=== PATIENT | female | born 1980 | race Caucasian/White ===

== ENCOUNTER → 2020-03-09 11:01 | Outpatient (CLI) | payer BC, SELFPAY ==
--- NOTE | ~2020-03-09 | XR_ITS ---
EXAMINATION: XR lumbar spine 2-3V, XR sacrum coccyx min 2V DATE: 03/09/2020 11:39 INDICATION: Fall onto lower back and posterior pelvis descending with posterior pelvic pain, left leg radiculopathy, loss of sensation in the perineum and difficulty using the bathroom. TECHNIQUE: 1. Anteroposterior and lateral views of the lumbar spine, and cone-down lateral view of the lumbosacr al junction were obtained. 2. 3 views of the sacrum were obtained including AP, angled AP and lateral projections. COMPARISON: None. FINDINGS: Lumbar spine: Alignment is normal. Vertebral body and disc heights are normal. No significant facet osteoarthritis. Visualized lung bases are clear. Heart size is normal. Sacrum: Sacral arches appear intact. No fracture. Bilateral sacroiliac joint spaces are normal. Is also jacquie l alignment and joint space at the bilateral hips. Suture line in the left hemipelvis. IMPRESSION: 1. Negative lumbar spine and sacral radiographs with no osseous abnormality. Reviewed, dictated and finalized at location A. IMPRESSION: 1. Negative lumbar spine and sacral radiographs with no osseous abnormality.
== END ==
PROVIDERS: PCP Physician Assistant; Visit Provider Physician Assistant
DX: M54.5 Low back pain (principal)
CPT/HCPCS: 72100; 72220

== ENCOUNTER 2021-06-07 15:07 | Outpatient (CLI) | payer BC, SELFPAY ==
--- NOTE | ~2021-06-07 | XR_ITS ---
XR chest 2V DATE: 06/07/2021 15:27 INDICATION: Tuberculosis screening TECHNIQUE: PA and lateral views COMPARISON: 10/09/2017 two-view chest FINDINGS: Bilateral hyperinflation. No pulmonary infiltrate or consolidation, pleural effusion or pul monary vascular congestion or pneumothorax is detected. Normal heart size. No hilar or mediastinal enlargement. IMPRESSION: Bilateral hyperinflation; no active cardiopulmonary disease Reviewed, dictated and finalized at location B.
== END 2021-06-07 15:08 | disposition home or self-care (01) ==
LOC: ANHIMG 15:09
PROVIDERS: PCP Physician Assistant; Visit Provider Physician Assistant
DX: Z11.1 Encounter for screening for respiratory tuberculosis (principal); R91.8 Other nonspecific abnormal finding of lung field
CPT/HCPCS: 71046

== ENCOUNTER → 2022-02-17 08:50 | Outpatient (CLI) | payer BC, SELFPAY ==
--- NOTE | ~2022-02-17 | MR_ITS ---
EXAMINATION: MR lumbar spine wo con DATE: 02/17/2022 09:20 INDICATION: Lumbar radiculopathy TECHNIQUE: Magnetic resonance imaging (MRI) of the lumbar spine was performed without intravenous con trast. Sequences included sagittal T2-weighted FSE, sagittal T2-weighted FS FSE, sagittal T1-weighted FSE, and axial T2-weighted FSE. COMPARISON: MR spine radiographs dated 03/09/2020 FINDINGS: Alignment is normal. Vertebral body heights are normal. Normal bone marrow signal throughout. Normal disc height and signal. Annular fissures at at L4-L5 and L5-S1. The conus medullaris terminates at L1 -L2. There is normal signal in the caudal spinal cord. Paravertebral soft tissues are unremarkable. T he following disc levels are specifically discussed: T12-L1: The disc does not extend beyond the endplate margin. There is no facet joint osteoarthritis. There is no neural foraminal stenosis. There is no central canal stenosis. L1-L2: Disc is minimally bulging. There is no facet joint osteoarthritis. There is no neural foramina l stenosis. There is no central canal stenosis. L2-L3: Disc is minimally bulging. There is no facet joint osteoarthritis. There is no neural foramina l stenosis. There is no central canal stenosis. L3-L4: Disc is minimally bulging. There is mild bilateral facet joint osteoarthritis. There is no shirley ral foraminal stenosis. There is no central canal stenosis. L4-L5: Disc is minimally bulging with annular fissure. There is mild bilateral facet joint osteoarthr itis. There is no neural foraminal stenosis. There is no central canal stenosis. L5-S1: Disc is minimally bulging with annular fissure. There is mild to moderate right and mild left facet joint osteoarthritis. There is no neural foraminal stenosis. There is no central canal stenosis . IMPRESSION: 1. Minimal lumbar spondylosis with no central canal or neural foraminal stenosis.. Reviewed, dictated and finalized at location A. IMPRESSION: 1. Minimal lumbar spondylosis with no central canal or neural foraminal stenosi s..
== END ==
PROVIDERS: PCP Physician Assistant; Visit Provider Physician Assistant
DX: M54.16 Radiculopathy, lumbar region (principal); M47.816 Spondylosis without myelopathy or radiculopathy, lumbar region
CPT/HCPCS: 72148

== ENCOUNTER → 2022-09-07 14:33 | Outpatient (CLI) | payer BC, SELFPAY ==
--- NOTE | ~2022-09-07 | XR_ITS ---
EXAMINATION: XR hip LT 2V w AP pelvis INDICATION: Left hip pain TECHNIQUE: AP view the pelvis and two views of the left hip are obtained. COMPARISON: None available FINDINGS: Bone alignment is normal. There is no fracture. The joint spaces are unremarkable. A surgic al anastomosis is noted in the left pelvis. IMPRESSION: 1. No acute osseous abnormality. Reviewed, dictated and finalized at location F.
== END ==
PROVIDERS: PCP Physician Assistant; Visit Provider Physician Assistant
DX: M25.552 Pain in left hip (principal)
CPT/HCPCS: 73502

== ENCOUNTER 2023-01-12 08:56 | Outpatient (CLI) | payer BC, SELFPAY ==
--- NOTE | ~2023-01-12 | US_ITS ---
EXAMINATION: US abdomen complete DATE: 01/12/2023 10:29 INDICATION: Epigastric pain TECHNIQUE: Multiple grayscale and Doppler ultrasound images of the abdomen were obtained. COMPARISON: None available FINDINGS: The head and body of the pancreas are normal. The pancreatic tail is obscured by bowel gas. The liver is normal with normal echogenicity and echotexture. No surface nodularity. Normal hepatope melly flow in the main portal vein. The gallbladder is normal with no abnormal wall thickening, pericho lecystic fluid or stones. The normal common bile duct measures 4 mm. There was no sonographic Patel sign. The visualized portions of the aorta and inferior vena cava are normal. The spleen is normal in appearance and measures 9.3 cm. The right kidney measures 9.9 x 3.5 x 4.1 cm. The left kidney measures 9.7 x 4.6 x 4.1 cm. The kidneys demonstrate normal parenchymal echogenicity . There is no hydronephrosis. IMPRESSION: 1. No sonographic correlate for the patient's symptoms. Reviewed, dictated and finalized at location B. WARE INSTALLATION COORDINATOR
--- NOTE | ~2023-01-12 | XR_ITS ---
EXAMINATION: XR UGIAC wo kub DATE: 01/12/2023 10:44 INDICATION: Epigastric abdominal pain TECHNIQUE: The patient drank thick barium, gas-producing crystals, and thin barium. A total of fluoro scopic images of the esophagus, stomach, and proximal small bowel were obtained. Fluoroscopy exposure time was minutes. COMPARISON: None. FINDINGS: The esophagus is normal without mass or stricture. Esophageal motility is normal. There is no hiatal hernia. There was no gastroesophageal reflux with provocative maneuvers. The stomach and pr oximal small bowel are normal. IMPRESSION: 1. Normal upper GI study. Reviewed, dictated and finalized at location A. A HAND IMPRESSION: 1. Normal upper GI study.
== END 2023-01-12 08:57 | disposition home or self-care (01) ==
PROVIDERS: PCP Physician Assistant; Visit Provider Physician Assistant
DX: R11.0 Nausea (principal); R10.10 Upper abdominal pain, unspecified
CPT/HCPCS: 74246; 76700

== ENCOUNTER → 2023-07-24 16:09 | Outpatient (CLI) | payer BC, SELFPAY ==
--- NOTE | ~2023-07-24 | US_ITS ---
EXAMINATION: US soft tissue buttock LT DATE: 07/24/2023 16:21 INDICATION: Palpable area at the left buttock post fall 3 years prior TECHNIQUE: Multiple grayscale and Doppler ultrasound images of the region of concern at the left butt ock were obtained. COMPARISON: None FINDINGS: Normal appearance to the subcutaneous fat and underlying musculature at the region of concern at the left buttock. No abnormal masses or fluid collections identified. IMPRESSION: 1. Normal study. No abnormal masses, fluid collections or other correlate for reported palpable abnor mality at the left buttock. Reviewed, dictated and finalized at location A. IMPRESSION: 1. Normal study. No abnormal masses, fluid collections or other correlate for r eported palpable abnormality at the left buttock.
== END ==
PROVIDERS: PCP Physician Assistant; Visit Provider Physician Assistant
DX: R22.2 Localized swelling, mass and lump, trunk (principal)
CPT/HCPCS: 76705

== ENCOUNTER → 2023-08-24 07:00 | Outpatient (CLI) | payer BC, SELFPAY ==
--- NOTE | ~2023-08-24 | MR_ITS ---
EXAMINATION: MR cervical spine wo con DATE: 08/24/2023 07:37 INDICATION: Spondylosis without myelopathy or radiculopathy. Neck pain. Left arm pain. TECHNIQUE: Magnetic resonance imaging (MRI) of the cervical spine was performed without intravenous c ontrast. COMPARISON: Cervical spine MRI 08/21/17 FINDINGS: There is 7 degrees levocurvature of cervicothoracic spine. Vertebral body heights and inter vertebral disc heights are normal. The spinal cord signal intensity is normal. The following disc lev els are specifically discussed: C2-C3: The disc does not extend beyond the endplate margin. There is no uncovertebral joint osteoarth ritis. There is mild right and moderate left facet joint osteoarthritis. There is no neural foraminal stenosis. There is no central canal stenosis. C3-C4: The disc does not extend beyond the endplate margin. There is no uncovertebral joint osteoarth ritis. There is severe left facet joint osteoarthritis. There is mild left neural foraminal stenosis. There is no central canal stenosis. C4-C5: The disc does not extend beyond the endplate margin. There is moderate left uncovertebral join t osteoarthritis. There is severe left facet joint osteoarthritis. There is mild left neural foramina l stenosis. There is no central canal stenosis. C5-C6: The disc does not extend beyond the endplate margin. There is no uncovertebral joint osteoarth ritis. There is mild bilateral facet joint osteoarthritis. There is no neural foraminal stenosis. The re is no central canal stenosis. C6-C7: There is a central protrusion. There is no uncovertebral joint osteoarthritis. There is mild b ilateral facet joint osteoarthritis. There is no neural foraminal stenosis. There is no central canal stenosis. C7-T1: The disc does not extend beyond the endplate margin. There is no uncovertebral joint osteoarth ritis. There is mild bilateral facet joint osteoarthritis. There is no neural foraminal stenosis. The re is no central canal stenosis. IMPRESSION: 1. Mild cervical spondylosis, stable from 08/21/2017. Reviewed, dictated and finalized at location E.
== END ==
PROVIDERS: Visit Provider Physician Assistant
DX: M47.812 Spondylosis without myelopathy or radiculopathy, cervical region (principal); M43.02 Spondylolysis, cervical region
CPT/HCPCS: 72141

== ENCOUNTER 2024-06-26 10:28 | Outpatient (CLI) | payer OTHER, SELFPAY ==
--- NOTE | ~2024-06-26 | MR_ITS ---
MRI of the left knee Clinical history: Pain Technique: Coronal proton density and proton density-weighted images, sagittal proton-density and T2 fat-sat images, and axial proton-density fat-saturated images were acquired. Findings: Anterior and posterior cruciate ligaments are intact. Medial collateral ligament and the la teral collateral ligament, as are intact. Popliteus tendon is intact. Medial and lateral menisci are intact, without evidence of tear. Articular cartilage is well preserved throughout the knee. Bone marrow signals are unremarkable. Extensor mechanism is intact. No significant joint effusion. Minimal Davalos's cyst present. Impression: Minimal Davalos's cyst, otherwise unremarkable exam. Reviewed, dictated and finalized at location . Impression: Minimal Davalos's cyst, otherwise unremarkable exam.
== END 2024-06-26 10:29 ==
LOC: MICIMG 10:29
PROVIDERS: PCP Nurse Practitioner Family; Visit Provider Nurse Practitioner Family
DX: M25.562 Pain in left knee (principal)
CPT/HCPCS: 73721

== ENCOUNTER 2024-09-29 15:55 | Outpatient (CLI) | payer OTHER, SELFPAY ==
--- NOTE | ~2024-09-29 | CT_ITS ---
EXAMINATION: CT brain wo con DATE: 09/29/2024 16:08 INDICATION: Head injury. TECHNIQUE: Computed tomography (CT) of the head was performed without intravenous contrast. The mA wa s adjusted according to patient size. Iterative reconstruction technique was employed. The dose-lengt h product was 645.69 mGy-cm. COMPARISON: None FINDINGS: There is no intracranial hemorrhage, acute infarction, or abnormal intracranial mass lesion . The ventricles are normal in size. The orbits are normal. There is complete opacification of left m axillary sinus. The mastoid air cells are normal. IMPRESSION: 1. Normal brain. Reviewed, dictated and finalized at location A. OGRAPHIC DESIGNER IMPRESSION: 1. Normal brain.
== END 2024-09-29 15:56 | disposition home or self-care (01) ==
LOC: GOSHIMG 15:56
PROVIDERS: PCP Physician Assistant; Visit Provider Physician Assistant
DX: S00.93XA Contusion of unspecified part of head, initial encounter (principal); W19.XXXA Unspecified fall, initial encounter
CPT/HCPCS: 70450

== ENCOUNTER 2025-01-13 07:21 | Outpatient (CLI) | payer OTHER, SELFPAY ==
--- NOTE | ~2025-01-13 | MM_ITS ---
EXAMINATION: MM screening ed BI w jeffrey HISTORY: Screening TECHNIQUE: Craniocaudal and mediolateral oblique 3-D tomosynthesis images were obtained and synthetic 2-D images were generated. CAD analysis was submitted and interpreted. COMPARISON: No prior mammogram is available for comparison at this institution. BREAST PARENCHYMAL COMPOSITION: Dense: The breasts are heterogeneously dense, which may obscure small masses FINDINGS: There are asymmetries in the upper outer quadrant of the right breast, middle third and the central aspect of the left breast. There are no suspicious calcifications. IMPRESSION: 1. Bilateral breast asymmetries. 2. Additional mammographic views and possible breast ultrasound are recommended. BI-RADS Category 0: Incomplete: Needs additional imaging evaluation. Reviewed, dictated and finalized at location B. HOLIC COUNSELOR IMPRESSION: 1. Bilateral breast asymmetries. 2. Additional mammographic views and possible breast ultrasound are recommended . BI-RADS Category 0: Incomplete: Needs additional imaging evaluation.
--- OUTSIDE RECORDS SUMMARY | 2025-01-13 07:26 | XMS_ITS | Continuity of Care Document ---
Author Organization [facility] Address [address] [facility] [address] [place] [address] Phone Care Team Providers Care Auto Bench Mechanic Name Role Phone MarilusaemerRajaniMalachi Unavailable Unavailable Procedures Procedure Date Eye Exam, New Patient Advance Directives Directive Yes / No Effective Date File Name No Information Encounters Encounter Description Practice Location Reason(s) For Visit Diagnoses Date Provider Providers Copied on Encounter [facility], [address], [place], [place], [id number], [place] tel:[phone] [facility] No Information [address]. [address] [facility] [address], [place], [address], [place]. tel:[phone] Family History Family Member Type Diagnosis Age At Onset No Information Payers Payer name Insurance type Covered constitution party ID Authoriza tiamber(s) BCBS [place] Out Of [place] [id number] Social History Type Description Quantity Date Captured [...]
--- OUTSIDE RECORDS SUMMARY | 2025-01-13 07:27 | XMS_ITS | Referral Summary ---
Author Organization [facility] [address] [facility] [facility] [address] Address [address] [place] [address] Care Team Providers Care Control Cabinet Assembler Name Role Phone Samanta Alvarenga Primary Care Pr ovider Encounters Date Type Department Care Team Description 11/10/2024 1:15 PM [facility] Office Visit [facility] V[facility] Vein Surgery [address] [place] [address] [place] [address] Francisco Mcelroy MD Varicose veins of lower extremity with inflammation, unspecified laterality from Last 3 Months Allergies Active Allergy Reactions Criticality Noted Date Comments Cefdinir Rash Medium 11/24/2016 Cephalexin Hives Medium 02/02/2021 Latex Rash Medium 08/29/2018 Penicillins Hives,Rash Medium 08/16/2018 Sulfamethoxazole-Trimethoprim Rash Medium 2017 Vancomycin Itching High 11/24/2016 Medications magnesium oxide (MAG-OX) 250 mg (150.8 mg elemental) tablet Take 1 tablet (250 mg total) by mouth daily Active Apri 0.15-0.03 mg per tablet Take 1 tablet by mouth daily 3 Active Nextstellis 3 mg- 14.2 mg (28) tablet TAKE 1 TABLET BY MOUTH ONCE A DAY IN CONTINUOUS FASHION 3 Active drospirenone-et hinyl estradioL (FORTUNATO,OCELLA) 3-0.03 mg per tablet TAKE 1 TABLET BY MOUTH EVERY DAY. TAKE CONTINOUSLY AND SKIP PLACEBO TABLETS 4 Active cholecalciferol (VITAMIN D-3) 2000 unit tablet Active Hospital, Clinic, or Other Facility Administered Medication Ordered Dose Route Frequency Start Date End Date Status dexAMETHasone (DECADRON) 4 mg/mL injection 8 mgIndications:Acute left-sided low back pain with left-sided sciatica 8 mg IV Every 6 hours scheduled 04/20/2023 Active Active Problems Problem Noted Date Diagnosed Date Varicose veins of lower extremity with inflammat ion 11/11/2024 Assessment & Plan (11/11/2024 10:43 AM [employer]): Reticular veins of the posterior knee no significant varicosities, we discussed management of spider reticular veins would predominantly be sclerotherapy I have written a referral for Dr. Pantoja. Can follow up me as needed. Social History Tobacco Use Types Packs/Day Years Used Date Smoking Tobacco: Never Smokeless Tobacco: Never Tobacco Cessation:Counseling Given: Not Answered Comments Unknown Sex and Gender Information Value Date Recorded Sex Assigned at Not on file Legal Sex Female 9:55 AM [employer] Gender Identity Not on file Sexual Orientation Not on file Last Filed Vital Signs Vital Sign Reading Time Taken Comments Blood Pressure 123/82 11/10/2024 1:12 PM [employer] Pulse 71 11/10/2024 1:12 PM [employer] Temperature 36.8 C (98.2 F) 02/24/2024 3:32 PM CDT Respiratory Rate 20 02/24/2024 3:32 PM CDT Oxygen Saturation 100% 02/24/2024 3:32 PM CDT Inhaled Oxygen Concentration - - Weight 54.4 kg (120 lb) 11/10/2024 1:12 PM [employer] Height 157.5 cm (5' 2 ) 11/10/2024 1:12 PM [employer] Body Mass Index 21.95 11/10/2024 1:12 PM [employer] Plan of Treatment Not on file Insurance [facility] Address: [address] [place] [address] [facility] Address: [address] [place] [address] Care Teams Control Cabinet Assembler Relationship Specialty Start Date End Date Samanta Alvarenga PA PCP - General Physician Wrapper Operator 10/25/18
--- OUTSIDE RECORDS SUMMARY | 2025-01-13 07:27 | XMS_ITS | Encounter Summary ---
Author Organization [facility] Address [address] [place] [address] Care Team Providers Care Dry Cell Assembly Machine Tender Name Role Phone Munira Lopez MD Primary Care Provider [phone] Samanta Pace Primary Care Pr ovider Encounter Details Date Type Department Care Team (Late st Contact Info) Description 10/27/2021 Lab Requisition [facility] Care DermPath Lab [address] [facility], [place] [id number] Katy Augustine MD [address] [facility] [address] [place] [address] Social History Tobacco Use Types Packs/Day Years Used Date Smoking Tobacco: Never Smokeless Tobacco: Never Sex and Gender Information Value Date Recorded Sex Assigned at Not on file Gender Identity Not on file Sexual Orientation Not on file documented as of this encounter Plan of Treatment Not on file documented as of this encounter Procedures Procedure Name Priority Date/Time Associated Diagnosis Comments DERMATOPATHOLOGY Routine 10/26/2021 12:0 0 AM CAT DOG OR OTHER PET GROOMER documented in this encounter Results * DERMATOPATHOLOGY (10/26/2021 12:00 AM CAT DOG OR OTHER PET GROOMER) Case Report Dermatopathology Report Case: [id number] Authorizing Provider: Katy Augustine MD Collected: 10/26/2021 12:00 AM Ordering Location: [facility] DermPath Lab Received: 10/27/2021 08:02 AM Pathologist: Starla Ace MD Specimen: Skin, left lower leg 1:15 PM CAT DOG OR OTHER PET GROOMER DERMATOPATHOLOGY LABORATORY Final Diagnosis Specimen A. SKIN, left lower leg: DERMATOFIBROMA (D23.9) 1:15 PM CAT DOG OR OTHER PET GROOMER DERMATOPATHOLOGY LABORATORY Clinical History Mccausland papule DF R/O BCC. 1:15 PM CAT DOG OR OTHER PET GROOMER DERMATOPATHOLOGY LABORATORY Gross Description Specimen A: Received is one formalin filled container labeled with the patient's name and designated left lower leg. The specimen consists of a shave measuring 9o2s2aq. Jar 0. 1:15 PM CAT DOG OR OTHER PET GROOMER DERMATOPATHOLOGY LABORATORY Microscopic Description Specimen A. SKIN, left lower leg: There is epidermal hyperplasia. Within the dermis, there are fibrohistiocytic cells in haphazard array among coarse collagen bundles. 1:15 PM CAT DOG OR OTHER PET GROOMER DERMATOPATHOLOGY LABORATORY Disclaimer An external and internal positive and negative controls are appropriate for the histochemical, immunohistochemical and immunofluorescence stain(s) in this case (if any), except where stated explicitly. The performance characteristics of the stain(s) cited in this report were developed and its performance characteristic determined by the Dermatopathology Laboratory at [facility], directed by Dr. Jori Zhang. These tests need not be, and therefore are not, approved by the [place] Food and Drug Administration. The tests are used for clinical purposes. Billing Codes Specimen Charges Stain Charges 29274 1 1:15 PM CAT DOG OR OTHER PET GROOMER DERMATOPATHOLOGY LABORATORY Embedded Images 1:15 PM CAT DOG OR OTHER PET GROOMER DERMATOPATHOLOGY LABORATORY Pathology/Cytolog y TISSUE SPECIMEN FROM SKIN / Unknown 10/26/2021 10/27/2021 8:02 AM CAT DOG OR OTHER PET GROOMER Katy Augustine MD LAB - PATHOLOGY/CYTO LOGY ORDERABLES DERMATOPATHOLOGY LABORATORY [facility] - Department of D[facility] [address] [facility], 3[address] [phone] documented in this encounter Visit Diagnoses Not on filedocumented in this encounter Care Teams Dry Cell Assembly Machine Tender Relationship Specialty Start Date End Date Munira Lopez MD [address] [place] [id number] PCP - General 07/01/21 04/01/22 Samanta Pace PA [address] [place] [address] PCP - General 04/02/22 documented as of this encounter
--- OUTSIDE RECORDS SUMMARY | 2025-01-13 07:27 | XMS_ITS | Patient Health Record ---
Author Organization [facility] Address [address] [facility] [address] [place] [address] Care Team Providers Care Clinical Program Director Name Role Phone Samanta Alvarenga Primary Care Provider Unavailab alice Laz Muñiz Unavailable [phone] Allergies Allergen (clinical drug ingredient) Drug/Non Drug Allergy documented on EMR Reaction Allergy Type Onset Date Status Other Antibiotics (uncoded) Unknown Allergy Active Latex Latex Unknown Allergy Active Penicillin Unknown Drug Allergy Active Reason For Referral No Information Medications Medication SIG (Take, Route, Fr equency, Duration) Notes Start Date End Date Status OTC/Vitamins Magnesium Active PriLOSEC Active Immunizations Vaccine Route Administration Date Status Comme nts Influenza Vaccination Unknown 09/16/2022 Administered Social History Tobacco Use: Social History Observation Description Date Details (start date - stop date) Never Smoker NA - NA Tobacco Use/Smoking Question Answer Notes Are you a nonsmoker Problems Problem Type SNOMED Code ICD Code Onset Dates Problem Status W/U Status Risk Notes Problem Generalized abdominal pain (439293383) Generalized abdominal pain (R10.84) Active confirmed Maggy is a very pleasant 42-year-old female who began having generalized abdominal pain with nausea and vomiting that began a proximally 6 months ago. Symptoms were initially intermittent and then progressed occurring daily. Her weight and appetite have remained stable. She underwent barium esophagram and right upper quadrant ultrasound that she reports was negative along with blood work however these records are not available for review today. She has tried elevating gr from her diet and has had improved symptoms. She had no relief with 8 week trial of PPI. Differentials include IBS, IBD, celiac sprue, food or foodstuff intolerance, SIBO, and others. Problem Nausea and vomiting (38726308) Nausea and vomiting (R11.2) Active confirmed Plan Of Treatment Pending Test Test Name Order Date Upper Endoscopy 02/07/2023 Insurance Providers Payer Name Payer Address Payer Phone Subscriber Number Group Number Insured Name Patient Relationship to Insured Coverage Start Date Coverage End Date Blue Access PPO [id number] [address] [place] [address] [id number] Maggy Rodriguez Self - patient is the insured Medical (General) History Surgical History Surgery Date(Month/Year) Removal of Ovary
--- OUTSIDE RECORDS SUMMARY | 2025-01-13 07:27 | XMS_ITS | Referral Summary ---
Author Organization [facility] [employer] Address [address] [place] [address] Care Team Providers Care Sensor Operator Name Role Phone Samanta Pace Primary Care Pr ovider Source Comments [facility],non-owned Affiliates and Associated Physician Practices is amultiple site organization consisting of ambulatory clinics and hospital sitesin [place], [place], [place] and [place]. This disclosure is being madepursuant to the Care Everywhere program and may not contain all information available regarding this patient. Last updated 18.[facility] Allergies Active Allergy Reactions Criticality Noted Date Comments Cephalexin Urticaria Medium 02/02/2021 Latex Rash Medium 10/25/2017 Cefdinir 11/24/2016 Penicillins Rash Medium 08/16/2018 Vancomycin 11/24/2016 Medications * Be aware that medications may not be up to date on this document. Alwaysverify current medications with the patient. Medication Sig Dispensed Refills Start Date End Date Status levonorgestrel-e thinyl estradiol (SEASONIQUE) 0.15-0.03 &0.01 MG tablet Take 1 Tab by mouth once daily Active MAGNESIUM CHLORIDE PO Active norgestimate-eth inyl estradiol (ORTHO-CYCLEN; MONONESSA; PREVIFEM; SPRINTEC) 0.25-35 MG-MCG tablet Ariella 0.25 mg-35 mcg tablet TAKE ONE TABLET BY MOUTH ONCE DAILY CONTINIOUSLY SKIPPING PLACEBO PILLS Active norgestim-eth estrad triphasic 0.18/0.215/0.25 MG-35 MCG tablet Tri Femynor (28) 0.18 mg(7)/0.215 mg(7)/0.25 mg(7)-35 mcg tablet TAKE 1 TABLET BY MOUTH EVERY DAY Active cyclobenzaprine (FLEXERIL) 10 MG tablet Take 10 mg by mouth as needed Take 1/2 to 1 tablet by mouth 3 times a day as needed for pain 12/28/2021 Active cyclobenzaprine (FLEXERIL) 5 MG tablet cyclobenzaprine 5 mg tablet Active gabapentin (NEURONTIN) 100 MG capsule Take 100 mg by mouth at bedtime Take 1 to 2 capsules by mouth every day at bedtime 03/02/2022 Active HYDROcodone-acet aminophen (NORCO) 5-325 MG tablet hydrocodone 5 mg-acetaminophen 325 mg tablet TAKE 1 TABLET BY MOUTH EVERY 4 HOURS NEEDED FOR PAIN Active HYDROcodone-ibup rofen (IBUDONE) 7.5-200 MG hydrocodone 7.5 mg-ibuprofen 200 mg tablet Active ibuprofen (MOTRIN) 200 MG tablet Take 200 mg by mouth every 6 hours as needed Active Magnesium Oxide 250 MG Take 1 tablet by mouth once daily Active nitroGLYCERIN (NITROSTAT) 0.4 MG tablet Nitrostat 0.4 mg sublingual tablet Active trimethoprim-luigi ymyxin B (POLYTRIM) 99607-8.1 UNIT/ML-% ophthalmic solution polymyxin B sulfate 10,000 unit-trimethoprim 1 mg/mL eye drops Active predniSONE (DELTASONE) 20 MG tablet PLEASE SEE ATTACHED FOR DETAILED DIRECTIONS 08/29/2021 Active tamsulosin (FLOMAX) 0.4 MG capsule Take 1 (one) capsule by mouth once daily At the same time every day after a meal. 30 capsule 04/05/2022 Active linaCLOtide (LINZESS) 145 MCG capsule Take 1 (one) capsule by mouth daily before breakfast Take on an empty stomach at least 30 minutes prior to first meal of the day. 30 capsule 04/05/2022 Active Social History Tobacco Use Types Packs/Day Years Used Date Smoking Tobacco: Never Smokeless Tobacco: Never Alcohol Use Standard Drinks/Week Comments Yes 1 (1 standard drink = 0.6 oz pur e alcohol) Sex and Gender Information Value Date Recorded Sex Assigned at Not on file Gender Identity Not on file Sexual Orientation Not on file Last Filed Vital Signs Vital Sign Reading Time Taken Comments Blood Pressure 116/80 04/05/2022 10:19 AM CDT Pulse 84 08/16/2018 2:12 PM CDT Temperature 36.9 C (98.4 F) 08/16/2018 2:12 PM CDT Respiratory Rate 16 08/16/2018 2:12 PM CDT Oxygen Saturation 98% 08/16/2018 2:12 PM CDT Inhaled Oxygen Concentration - - Weight 56.7 kg (125 lb) 04/05/2022 10:19 AM CDT Height 157.5 cm (5' 2 ) 04/05/2022 10:19 AM CDT Body Mass Index 22.86 04/05/2022 10:19 AM CDT Plan of Treatment Not on file Care Teams Sensor Operator Relationship Specialty Start Date End Date Samanta Pace PA [address] [place] [address] PCP - General 04/02/22
--- OUTSIDE RECORDS SUMMARY | 2025-01-13 07:27 | XMS_ITS | Clinical Summary ---
Author Organization [facility] Address [address] [place] [address] Care Team Providers Care Exhibit Specialist Name Role Phone AnnesaturninoSamanta Primary Care Provider [phone] Allergies Active Allergy Reactions Criticality Noted Date Comments Cefdinir Rash Low 11/24/2016 Cephalexin Hives 09/20/2023 Latex Rash Medium 08/29/2018 Penicillins Rash,Hives Medium 08/16/2018 Sulfamethoxazole-Trimethoprim Hives Medium 2017 Vancomycin Itching Medium 11/24/2016 Medications ibuprofen 200 MG tablet Take 1 tablet (200 mg total) by mouth every 6 (six) hours as needed for Pain. Active magnesium oxide 250 MG tablet Take 1 tablet (250 mg total) by mouth daily. Active desogestrel-ethi nyl estradiol (APRI) 0.15-30 MG-MCG tablet Take 1 tablet by mouth daily. 12/19/2022 Active Vitamin D3 (VITAMIN D) 50 mcg tablet Take 1 tablet (50 mcg total) by mouth daily. Active ferrous sulfate EC 325 (65 Fe) MG tablet Take 1 tablet by mouth daily. Active Active Problems Problem Noted Date Diagnosed Date Cervical spondylosis 01/07/2025 Facet arthropathy, cervical 08/29/2018 Encounters Date Type Department Care Team Description 01/07/2025 Prep for Procedure [facility] Inter[facility] [place] [address] [id number] Leonora Ace CNP from Last 3 Months Family History Medical History Relation Comments Cardiovascular disease Father cervical arthritis Father Relation Status Comments Father Social History Tobacco Use Types Packs/Day Years Used Date Smoking Tobacco: Never Smokeless Tobacco: Never Alcohol Use Standard Drinks/Week Comments Yes 0 (1 standard drink = 0.6 oz pur e alcohol) Education Answer Date Recorded What is the highest level of school you have completed or the highest degree you have received? Bachelor's degree (e.g., BA, AB, BS) 08/29/2018 Comments No Sex and Gender Information Value Date Recorded Sex Assigned at Not on file Legal Sex Female 4:34 PM CDT Gender Identity Not on file Sexual Orientation Not on file Occupation Industry Job Start Date Job End Date Registered Nurse Not on file Not on file Not on file Last Filed Vital Signs Vital Sign Reading Time Taken Comments Blood Pressure 138/88 08/08/2024 11:43 AM CDT Pulse 77 08/08/2024 11:43 AM CDT Temperature 36.6 C (97.8 F) 08/08/2024 10:54 AM CDT Respiratory Rate 18 08/08/2024 11:43 AM CDT Oxygen Saturation 100% 08/08/2024 11:43 AM CDT Inhaled Oxygen Concentration - - Weight 54.9 kg (121 lb) 08/08/2024 10:54 AM CDT Height 157.5 cm (5' 2 ) 08/08/2024 10:54 AM CDT Body Mass Index 22.13 08/08/2024 10:54 AM CDT Plan of Treatment Upcoming Encounters Date Type Department Care Team (Latest Contact Info) Description 02/10/2025 8:20 AM CDT Hospital Encounter [facility] Interventional [place] [address] [id number] Sharlene Bear MD [facility] [address] [place] [id number] 02/10/2025 8:20 AM CDT - 02/10/2025 8:40 AM CDT Surgery [facility] [place] [address] [id number] Sharlene Bear MD [facility] [address] [place] [address] BLOCK MEDIAL BRANCH CERVICAL-C4, 5, 6 Scheduled Procedures Name Priority Associated Diagnoses Date/Ti me BLOCK MEDIAL BRANCH CERVICAL Cervical spondylosis 02/10/2025 8:20 AM CDT Health Maintenance Due Date Last Done Comments Cervical Cancer Screening Pap Smear (Age 30 to 64) Every 3 Years 1979 Colorectal Cancer Screening Colonoscopy (10 Years) 1979 Annual Physical 1982 Hepatitis C 1997 DTaP, Tdap and Td Vaccines (1 - Tdap) 1998 Hepatitis B Vaccines (1 of 3 - 19+ 3-dose series) 1998 Cervical Cancer Screening Pap with HPV Testing (Age 30 to 64) Every 5 Years 2009 Cervical Cancer Screening with HPV 2009 Mammogram Screening 2019 COVID-19 Vaccine (2023- season) 2024 12/04/2020, 11/11/2020 Influenza Adult Completed 07/25/2024, 08/26, 09/15/2022, Additional history exists HPV Vaccines Aged Out No longer eligi ble based on patient's age to complete this topic Meningococcal B Vaccine Aged Out No l onger eligible based on patient's age to complete this topic Meningococcal Vaccine Aged Out No josue darrick eligible based on patient's age to complete this topic Pneumococcal Vaccine: Pediatrics (0 to 5 Years) and At-Risk Patients (6 to 64 Years) Aged Out No longer eligible based on patient's age to complete this topic RSV Immunizations Under 20 Months Aged Out No longer eligible based on patient's age to complete this topic Insurance [facility] Care Teams Exhibit Specialist Relationship Specialty Start Date End Date Samanta Alvarenga PA [address] [place] [address] PCP - General 08/29/18
--- OUTSIDE RECORDS SUMMARY | 2025-01-13 07:27 | XMS_ITS | Patient Health Summary ---
Author Organization [facility] [employer] Address [address] [place] [address] Care Team Providers Care System Archive Analyst Name Role Phone Samanta Pace Primary Care Pr ovider Note from [facility],non-owned Affiliates and Associated Physician Practices is amultiple site organization consisting of ambulatory clinics and hospital sitesin [place], [place], [place] and [place]. This disclosure is being madepursuant to the Care Everywhere program and may not contain all information available regarding this patient. Last updated 18.[facility] Allergies * Cephalexin(Urticaria) -Medium Criticality * Latex(Rash) -Medium Criticality * Cefdinir * Penicillins(Rash) -Medium Criticality * Vancomycin * Sulfamethoxazole W-Trimethoprim(Urticaria,Rash) -Medium Criticality,Inactive Medications * Be aware that medications may not be up to date on this document. Alwaysverify current medications with the patient. * levonorgestrel-ethinyl estradiol (SEASONIQUE) 0.15-0.03 &0.01 MG tablet Take 1 Tab by mouth once daily * MAGNESIUM CHLORIDE PO * norgestimate-ethinyl estradiol (ORTHO-CYCLEN; MONONESSA; PREVIFEM; SPRINTEC) 0.25-35 MG-MCG tablet Ariella 0.25 mg-35 mcg tablet TAKE ONE TABLET BY MOUTH ONCE DAILY CONTINIOUSLY SKIPPING PLACEBO PILLS * norgestim-eth estrad triphasic 0.18/0.215/0.25 MG-35 MCG tablet Tri Femynor (28) 0.18 mg(7)/0.215 mg(7)/0.25 mg(7)-35 mcg tablet TAKE 1 TABLET BY MOUTH EVERY DAY * cyclobenzaprine (FLEXERIL) 10 MG tablet(Started 12/28/2021) Take 10 mg by mouth as needed Take 1/2 to 1 tablet by mouth 3 times a day as needed for pain * cyclobenzaprine (FLEXERIL) 5 MG tablet cyclobenzaprine 5 mg tablet * gabapentin (NEURONTIN) 100 MG capsule(Started 03/02/2022) Take 100 mg by mouth at bedtime Take 1 to 2 capsules by mouth every day at bedtime * HYDROcodone-acetaminophen (NORCO) 5-325 MG tablet hydrocodone 5 mg-acetaminophen 325 mg tablet TAKE 1 TABLET BY MOUTH EVERY 4 HOURS NEEDED FOR PAIN * HYDROcodone-ibuprofen (IBUDONE) 7.5-200 MG hydrocodone 7.5 mg-ibuprofen 200 mg tablet * ibuprofen (MOTRIN) 200 MG tablet Take 200 mg by mouth every 6 hours as needed * Magnesium Oxide 250 MG Take 1 tablet by mouth once daily * nitroGLYCERIN (NITROSTAT) 0.4 MG tablet Nitrostat 0.4 mg sublingual tablet * trimethoprim-polymyxin B (POLYTRIM) 85542-9.1 UNIT/ML-% ophthalmic solution polymyxin B sulfate 10,000 unit-trimethoprim 1 mg/mL eye drops * predniSONE (DELTASONE) 20 MG tablet(Started 08/29/2021) PLEASE SEE ATTACHED FOR DETAILED DIRECTIONS * tamsulosin (FLOMAX) 0.4 MG capsule(Started 04/05/2022) Take 1 (one) capsule by mouth once daily At the same time every day after a meal. * linaCLOtide (LINZESS) 145 MCG capsule(Started 04/05/2022) Take 1 (one) capsule by mouth daily before breakfast Take on an empty stomach at least 30 minutes prior to first meal of the day. Social History Tobacco Use Types Packs/Day Years [...] Mass Index 22.86 04/05/2022 10:19 AM CDT Procedures * DERMATOPATHOLOGY(Performed 10/26/2021) * CULTURE THROAT(Performed 08/16/2018) Performed for Pharyngitis, unspecified etiology * STREP A SCREEN - POINT OF CARE (AMB) STL(Performed 08/16/2018) Performed for Pharyngitis, unspecified etiology * STREP A SCREEN - POINT OF CARE (AMB) STL(Performed 11/24/2016) Performed for Acute pharyngitis, unspecified etiology Results * DERMATOPATHOLOGY (10/26/2021 12:00 AM JUKE BOX SERVICER) Case Report Dermatopathology Report Case: [id number] Authorizing Provider: Katy Augustine MD Collected: 10/26/2021 12:00 AM Ordering Location: [facility] DermPath Lab Received: 10/27/2021 08:02 AM Pathologist: Starla Ace MD Specimen: Skin, left lower leg 1:15 PM JUKE BOX SERVICER DERMATOPATHOLOGY LABORATORY Final Diagnosis Specimen A. SKIN, left lower leg: DERMATOFIBROMA (D23.9) 1:15 PM JUKE BOX SERVICER DERMATOPATHOLOGY LABORATORY Clinical History [place] papule DF R/O BCC. 1:15 PM JUKE BOX SERVICER DERMATOPATHOLOGY LABORATORY Gross Description Specimen A: Received is one formalin filled container labeled with the patient's name and designated left lower leg. The specimen consists of a shave measuring [id number]. Jar 0. 1 1:15 PM [facility] D[facility] Microscopic Description Specimen A. SKIN, left lower leg: There is epidermal hyperplasia. Within the dermis, there are fibrohistiocytic cells in haphazard array among coarse collagen bundles. 1 1:15 PM [facility] DER[facility]OR[facility]ORY Disclaimer An external and internal positive and negative controls are appropriate for the histochemical, immunohistochemical and immunofluorescence stain(s) in this case (if any), except where stated explicitly. The performance characteristics of the stain(s) cited in this report were developed and its performance characteristic determined by the Dermatopathology Laboratory at [facility], directed by Dr. Jori Zhang. These tests need not be, and therefore are not, approved by the [place] Food and Drug Administration. The tests are used for clinical purposes. Billing Codes Specimen Charges Stain Charges 29865 1 1 1:15 PM [facility] DERMATOP[facility] LABORATORY Embedded Images 1 1:15 PM [facility] DER[facility] LABORATORY Pathology/Cytolog y TISSUE SPECIMEN FROM SKIN / Unknown 10/26/2021 10/27/2021 8:02 AM JUKE BOX SERVICER Katy Augustine MD LAB - PATHOLOGY/CYTO LOGY ORDERABLES DERMATOPATHOLOGY LABORATORY [facility] Department of Dermatology [address] [phone] * [facility] Throat Culture (08/16/2018 2:21 PM CDT) Culture [facility] Comment: CULTURE, THROAT MICRO NUMBER: [id number] TEST STATUS: FINAL SPECIMEN SOURCE: THROAT SPECIMEN QUALITY: ADEQUATE RESULT: No oropharyngeal pathogens recovered. Test Performed at: [facility] [phone] JAGUAR TOLEDO MD Microbiology ENTIRE THROAT (SURFACE REGION OF NECK) / Unknown 08/16/2018 2:21 PM CDT 08/17/2018 2:12 AM CDT Naomi Sanchezwer [employer] - MICROBIOLOG Y ORDERABLES [facility] [address] [place] [address] * STREP A SCREEN - POINT OF CARE (AMB) STL (08/16/2018) Only the most recent of2 resultswithin the time period is included. Strep A Rapid POCT Negative Negative Strep A Internal Control Present Lot # [id number] Expiration Date 02/05/20 Throat ENTIRE THROAT (SURFACE REGION OF NECK) / Unknown 08/16/2018 Naomi M Bebo DE [facility] - POINT OF CA RE ORDERABLES Care Teams System Archive Analyst Relationship Specialty Start Date End Date Samanta Pace PA [address] [place] [address] PCP - General 04/02/22
--- OUTSIDE RECORDS SUMMARY | 2025-01-13 07:27 | XMS_ITS | Encounter Summary ---
Author Organization [facility] Address [facility]ly [facility] [place] [address] Care Team Providers Care Upholstery Estimator Name Role Phone Samanta Alvarenga Primary Care Provider [phone] Reason for Referral * Surgical (Routine) - Canceled Specialty Diagnoses / Procedures Referred By Owen meyer Referred To Contact Diagnoses Facet arthropathy, cervical Procedures Case request operating room: BLOCK MEDIAL BRANCH CERVICAL C4, C5, C6 Hortensia Hunt APNP Phone: tel: fax: Referral ID Status Reason Start Date Expiration Date V isits Requested Visits Authorized [id number] Canceled 09/26/2018 10/26/2019 1 1 Encounter Details Date Type Department Care Team (Late st Contact Info) Description 09/26/2018 Prep for Procedure [facility] [place] [address] [id number] Hortensia Hunt APNP [address] [place] [phone] Social History Tobacco Use Types Packs/Day Years [...] file Not on file Not on file documented as of this encounter Plan of Treatment Upcoming Encounters Date Type Department Care Team (Latest Contact Info) Description 02/10/2025 8:20 AM CDT Hospital Encounter Health system Inter[facility] [place] [address] [id number] Sharlene Bear MD [facility] [address] [place] [phone] 02/10/2025 8:20 AM CDT - 02/10/2025 8:40 AM CDT Surgery [facility] Inter[facility] Pain [place] [address] [id number] Sharlene Bear MD [facility] [address] [place] [address] BLOCK MEDIAL BRANCH CERVICAL-C4, 5, 6 Scheduled Procedures Name Priority Associated Diagnoses Date/Ti me BLOCK MEDIAL BRANCH CERVICAL Cervical spondylosis 02/10/2025 8:20 AM CDT documented as of this encounter Visit Diagnoses Diagnosis Facet arthropathy, cervical- Primary Cervical spondylosis without myelopathy Cervical spondylosis Cervical spondylosis without myelopathy documented in this encounter Care Teams Upholstery Estimator Relationship Specialty Start Date End Date Samanta Alvarenga PA [address] [place] [address] PCP - General 08/29/18 documented as of this encounter
--- OUTSIDE RECORDS SUMMARY | 2025-01-13 07:27 | XMS_ITS | Clinical Summary ---
Author Organization [facility] Address [address] [place] [address] Phone Care Team Providers Care Office Machine Servicer Name Role Phone Unavailable Primary Care Provider Unavailabl e Allergies Active Allergy Reactions Criticality Noted Date Comments Latex Rash 10/25/2017 Penicillins Swelling 10/25/2017 Vancomycin Itching 11/24/2016 Medications desogestreL-eth inyl estradioL (Apri) 0.15-0.03 mg Tablet Take 1 Tablet by mouth daily continuously, skip placebo tablets. 112 Tablet 3 08/24/2023 8:08 AM CDT 03/01/2023 Active desogestreL-eth inyl estradioL (Apri) 0.15-0.03 mg Tablet Take 1 Tablet by mouth daily. 84 Tablet 2 03/08/2023 Active ruxolitinib (Opzelura) 1.5 % Cream APPLY TO FACE ONCE DAILY. 60 Gram 3 11/11/2022 Active escitalopram oxalate (LEXAPRO) 10 mg tablet Take 1 Tablet (10 mg) by mouth daily. 30 Tablet 2 09/08/2022 Active traZODone (DESYREL) 100 mg tablet TAKE 1- 1&1/2 TABLETS BY MOUTH AT BEDTIME. 45 Tablet 2 07/13/2022 Active linaCLOtide (LINZESS) 145 mcg capsule TAKE 1 CAPSULE BY MOUTH ON AN EMPTY STOMACH AT LEAST 30 MINUTES PRIOR TO FIRST MEAL OF THE DAY. 30 Capsule 04/05/2022 Active gabapentin (NEURONTIN) 100 mg capsule TAKE 1-2 CAPSULES BY MOUTH AT BEDTIME 60 Capsule 2 02/03/2022 Active tamsulosin (FLOMAX) 0.4 mg capsule TAKE 1 CAPSULE BY MOUTH ONCE DAILY AT THE SAME TIME EVERY DAY AFTER A MEAL. 30 Capsule 04/05/2022 Active Active Problems No known active problems Encounters Date Type Department Care Team Description 01/06/2025 External Device Data STL ABSTRACTION Provider, Abstract 12/18/2024 External Device Data STL ABSTRACTION Provider, Abstract 10/28/2024 External Device Data STL ABSTRACTION Provider, Abstract from Last 3 Months Immunizations Immunization Administration Dates Next Due (Trendy Mondays)(12 YR UP) COVID-19 VACCINE - EMERGENCY USE AUTHORIZATION, MRNA, [id number]) 30 MCG/0.3 ML IM SUSP 12/04/2020,11/11/2020 INFLUENZA VACCINE QUADRIVALENT 3 YR UP PF IM 01/2016 INFLUENZA VACCINE QUADRIVALENT 6 MOS UP PF IM INFLUENZA VACCINE TRIVALENT SPLIT VIRUS, (6 MOS UP), 0.5ML (PF), IM 07/25/2024 Influenza Seasonal Unspecified Formulation IM Social History Tobacco Use Types Packs/Day Years Used Date Smoking Tobacco: Never Assessed Comments Unknown Sex and Gender Information Value Date Recorded Sex Assigned at Not on file Legal Sex Female 10:58 AM CDT Gender Identity Not on file Sexual Orientation Not on file Last Filed Vital Signs Vital Sign Reading Time Taken Comments Blood Pressure 124/76 10/25/2017 9:30 AM EXPERIMENTAL BOX TESTER Pulse - - Temperature - - Respiratory Rate - - Oxygen Saturation - - Inhaled Oxygen Concentration - - Weight 54.4 kg (120 lb) 10/25/2017 9:30 AM EXPERIMENTAL BOX TESTER Height 157.5 cm (5' 2 ) 10/25/2017 9:30 AM EXPERIMENTAL BOX TESTER Body Mass Index 21.95 10/25/2017 9:30 AM EXPERIMENTAL BOX TESTER Plan of Treatment Health Maintenance Due Date Last Done Comments DTAP/TDAP/TD VACCINES (1 - Tdap) 1998 HEPATITIS B VACCINES (1 of 3 - 19+ 3-dose series) 1998 CERVICAL CANCER SCREENING 2009 BREAST CANCER SCREENING 2019 COLORECTAL SCREENING 2024 Colorectal Cancer Screening 2024 FIT-DNA Q 3 years 2024 FIT/FOBT Q 1 year 2024 Flex Sig/CT Colonography Q 5 years 2024 COVID-19 Vaccine (3 - 2023-25 season) 2024 12/04/2020, 11/11/2020 INFLUENZA VACCINE Completed 07/25/2024, , 09/03/2020, Additional history exists HPV VACCINES Aged Out No longer eligi ble based on patient's age to complete this topic PNEUMOCOCCAL VACCINE 0-64 YEARS Aged Out No longer eligible based on patient's age to complete this topic Insurance BLUE [employer] Member Subscriber Plan / Payer (Ef fective 2024-Present) Name:Maggy Rodriguez Relation to Subscriber:Self Name:Maggy Rodriguez Subscriber ID:Not on file Payer ID:Not on file Group ID:[id number] Type:RX Commercial Address: [address]
--- OUTSIDE RECORDS SUMMARY | 2025-01-13 07:27 | XMS_ITS | Data Portability ---
Author Organization [facility] [employer], Main Office Address [address] [place] [address] Assessment No assessment recorded. Plan of Treatment Reminders Order Date Submit Date Provider Last Modified By Organization Details Last Modified Time Details Appointments None recorded. Lab None recorded. Referral pain management referral 2022 023 elizabeth Bear MD, 3 [facility] [address], [place], [address], 4 09:39:58 pain management referral 2022 023 MATTEO Bear MD, 3 [facility] [address], [place], [address], 3 16:32:29 Procedures None recorded. Surgeries None recorded. Imaging US, buttock 2022 023 [email or web address] [facility], [address] S[address], [facility] [address], [place], [address], 4 09:40:03 Medication Orders Kenalog 40 mg/mL suspension for injection 2022 [email or web address] [facility] [place] [facility], [address] [place] [address] Skinny Schroeder, [place], [place], [id number], 3 13:12:02 Patient TargetsNo targets recorded. Patient InstructionsNo instructions recorded. Reason for Referral Pain Management Referral for Degeneration of cervical intervertebral disc Referring Physician: Samanta Alvarenga, Internal Medicine, Encounter Date: 07/20/2023 Pain Management Referral for Pain in sacrum Referring Physician: Samanta Alvarenga, Internal Medicine, Encounter Date: 07/20/2023 Results Created Date Observation Date Name Description Value Unit Range Abnormal Flag Note LastModifiedBy Organization Detail LastModifiedTime 08/24/20 22 08/25/2022 VITAM IN B12/F OLATE , SERUM PANEL vitamin B12 334 pg/mL 200-11 00 normal Pleas e Note: Altho ugh the refer ence range for vitam in B12 is 200-1 100 pg/mL , it has been repor willie that betwe en 5 and 10% of patie nts with value s betwe en 200 and 400 pg/mL may exper ience neuro psych iatri c and hemat ologi c abnor malit ies due to occul t B12 defic iency ; less than 1% of patie nts with value s above 400 pg/mL will have sympt oms. Not Available [facility] [address] [place] [address], [address], 08/25/2022 12:25:53 08/24/20 22 08/25/2022 VITAM IN B12/F OLATE , SERUM PANEL folate, serum 20.4 NG/mL normal Refer ence Range Low: <3.4 Borde rline : 3.4-5 .4 Laurence l: >5.4 Not Available [facility] [address], [address], 08/25/2022 12:25:53 08/24/20 22 08/25/2022 CBC (INCL UDES DIFF/ PLT) white blood cell count 6.1 thous and/u L 3.8-10 .8 normal Not Available [facility] [address] [place], [address], 08/25/2022 12:25:52 08/24/20 22 08/25/2022 CBC (INCL UDES DIFF/ PLT) red blood cell count 4.35 lluvia on/uL 3.80-5 .10 normal Not Available [address], [address], 08/25/2022 12:25:52 08/24/20 22 08/25/2022 CBC (INCL UDES DIFF/ PLT) hemoglobin 13.4 g/dL 11.7-1 5.5 normal Not Available [address], [address], 08/25/2022 12:25:52 08/24/20 22 08/25/2022 CBC (INCL UDES DIFF/ PLT) hematocrit 41.5 % 35.0-4 5.0 normal Not Available [address], [address], 08/25/2022 12:25:52 08/24/20 22 08/25/2022 CBC (INCL UDES DIFF/ PLT) MCV 95.4 fL 80.0-1 00.0 normal Not Available [address], [address], 08/25/2022 12:25:52 08/24/20 22 08/25/2022 CBC (INCL UDES DIFF/ PLT) MCH 30.8 pg 27.0-3 3.0 normal Not Available [address], [address], 08/25/2022 12:25:52 08/24/20 22 08/25/2022 CBC (INCL UDES DIFF/ PLT) MCHC 32.3 g/dL 32.0-3 6.0 normal Not Available [address], [address], 08/25/2022 12:25:52 08/24/20 22 08/25/2022 CBC (INCL UDES DIFF/ PLT) RDW 11.9 % 11.0-1 5.0 normal Not Available [address], [address], 08/25/2022 12:25:52 08/24/20 22 08/25/2022 CBC (INCL UDES DIFF/ PLT) platelet count 287 thous and/u L 140-40 0 normal Not Available [address], [address], 08/25/2022 12:25:52 08/24/20 22 08/25/2022 CBC (INCL UDES DIFF/ PLT) MPV 10.7 fL 7.5-12 .5 normal Not Available [address], [address], 08/25/2022 12:25:52 08/24/20 22 08/25/2022 CBC (INCL UDES DIFF/ PLT) absolute neutrophils 3947 cells /uL 1500-7 800 normal Not Available [address], [address], 08/25/2022 12:25:52 08/24/20 22 08/25/2022 CBC (INCL UDES DIFF/ PLT) absolute lymphocytes 1476 cells /uL 850-39 00 normal Not Available [address], [address], 08/25/2022 12:25:52 08/24/20 22 08/25/2022 CBC (INCL UDES DIFF/ PLT) absolute monocytes 519 cells /uL 200-95 0 normal Not Available [address], [address], 08/25/2022 12:25:52 08/24/20 22 08/25/2022 CBC (INCL UDES DIFF/ PLT) absolute eosinophils 110 cells /uL 15-500 normal Not Available [address], [address], 08/25/2022 12:25:52 08/24/20 22 08/25/2022 CBC (INCL UDES DIFF/ PLT) absolute basophils 49 cells /uL 0-200 normal Not Available [address], [place], [address], 08/25/2022 12:25:52 08/24/20 22 08/25/2022 CBC (INCL UDES DIFF/ PLT) neutrophils 64.7 % normal Not Available [facility] [address], [address], 08/25/2022 12:25:52 08/24/20 22 08/25/2022 CBC (INCL UDES DIFF/ PLT) lymphocytes 24.2 % normal Not Available [facility] [address], [address], 08/25/2022 12:25:52 08/24/20 22 08/25/2022 CBC (INCL UDES DIFF/ PLT) monocytes 8.5 % normal Not Available [facility] [address], [address], 08/25/2022 12:25:52 08/24/20 22 08/25/2022 CBC (INCL UDES DIFF/ PLT) eosinophils 1.8 % normal Not Available [facility] [address], [address], 08/25/2022 12:25:52 08/24/20 22 08/25/2022 CBC (INCL UDES DIFF/ PLT) basophils 0.8 % normal Not Available [facility] [address], [address], 08/25/2022 12:25:52 08/24/20 22 08/25/2022 COMPR EHENS SVETLANA METAB OLIC PANEL glucose 99 mg/dL 65-99 normal Fasti ng refer ence inter jose eduardo Not Available [address], [address], 08/25/2022 12:25:52 08/24/20 22 08/25/2022 COMPR EHENS SVETLANA METAB OLIC PANEL urea nitrogen (BUN) 9 mg/dL 7-25 normal Not Available [facility] [address], [address], 08/25/2022 12:25:52 08/24/20 22 08/25/2022 COMPR EHENS SVETLANA METAB OLIC PANEL creatinine 0.74 mg/dL 0.50-0 .99 normal Not Available [address], [address], 08/25/2022 12:25:52 08/24/20 22 08/25/2022 COMPR EHENS SVETLANA METAB OLIC PANEL eGFR 103 mL/mi n/1.7 3m2 > or = 60 normal The eGFR is based on the CKD-E PI 2020 equat ion. To calcu late the new eGFR from a previ ous Creat inine or Cysta tin C resul t, go to https ://mars hendricks.socorro ricks/bisi crawford s/ kdoqi /gfr% 5Fcal culat or Not Available [address], [address], 08/25/2022 12:25:52 08/24/20 22 08/25/2022 COMPR EHENS SVETLANA METAB OLIC PANEL BUN/creatini ne ratio not applic able (calc ) 6-22 Not Available [address], [address], 08/25/2022 12:25:52 08/24/20 22 08/25/2022 COMPR EHENS SVETLANA METAB OLIC PANEL sodium 137 mmol/ L 135-14 6 normal Not Available [address], [address], 08/25/2022 12:25:52 08/24/20 22 08/25/2022 COMPR EHENS SVETLANA METAB OLIC PANEL potassium 4.3 mmol/ L 3.5-5. 3 normal Not Available [address], [address], 08/25/2022 12:25:52 08/24/20 22 08/25/2022 COMPR EHENS SVETLANA METAB OLIC PANEL chloride 103 mmol/ L 98-110 normal Not Available [address], [address], 08/25/2022 12:25:52 08/24/20 22 08/25/2022 COMPR EHENS SVETLANA METAB OLIC PANEL carbon dioxide 27 mmol/ L 20-32 normal Not Available [address], [address], 08/25/2022 12:25:52 08/24/20 22 08/25/2022 COMPR EHENS SVETLANA METAB OLIC PANEL calcium 9.5 mg/dL 8.6-10 .2 normal Not Available [address], [address], 08/25/2022 12:25:52 08/24/20 22 08/25/2022 COMPR EHENS SVETLANA METAB OLIC PANEL protein, total 6.7 g/dL 6.1-8. 1 normal Not Available [address], [address], 08/25/2022 12:25:52 08/24/20 22 08/25/2022 COMPR EHENS SVETLANA METAB OLIC PANEL albumin 4.1 g/dL 3.6-5. 1 normal Not Available [address], [address], 08/25/2022 12:25:52 08/24/20 22 08/25/2022 COMPR EHENS SVETLANA METAB OLIC PANEL globulin 2.6 g/dL_ (calc ) 1.9-3. 7 normal Not Available [address], [address], 08/25/2022 12:25:52 08/24/20 22 08/25/2022 COMPR EHENS SVETLANA METAB OLIC PANEL albumin/glob ulin ratio 1.6 (calc ) 1.0-2. 5 normal Not Available [facility] [address] [address] [address], [place], [address], 08/25/2022 12:25:52 08/24/20 22 08/25/2022 COMPR EHENS SVETLANA METAB OLIC PANEL bilirubin, total 0.6 mg/dL 0.2-1. 2 normal Not Available [address], [address], 08/25/2022 12:25:52 08/24/20 22 08/25/2022 COMPR EHENS SVETLANA METAB OLIC PANEL alkaline phosphatase 69 U/L 31-125 normal Not Available [facility] [employer] [address], [address], 08/25/2022 12:25:52 08/24/20 22 08/25/2022 COMPR EHENS SVETLANA METAB OLIC PANEL AST 13 U/L 10-30 normal Not Available [address], [address], 08/25/2022 12:25:52 08/24/20 22 08/25/2022 COMPR EHENS SVETLANA METAB OLIC PANEL ALT 8 U/L 6-29 normal Not Available [address], [address], 08/25/2022 12:25:52 08/24/20 22 08/25/2022 TSH+F REE T4 TSH 1.14 mIU/L normal Refer ence Range > or = 20 Years 0.40- 4.50 Pregn ilsa Range s First trime ster 0.26- 2.66 Secon d trime ster 0.55- 2.73 Third trime ster 0.43- 2.91 Not Available [address], [address], 08/25/2022 12:25:51 08/24/20 22 08/25/2022 TSH+F REE T4 T4, free 1.1 NG/dL 0.8-1. 8 normal Not Available [address], [address], 08/25/2022 12:25:51 08/24/20 22 08/25/2022 IRON, TIBC AND MINA TIN PANEL iron, total 196 mcg/d L 40-190 high Not Available [address], [address], 08/25/2022 12:25:50 08/24/20 22 08/25/2022 IRON, TIBC AND MINA TIN PANEL iron binding capacity 439 mcg/d L_(ca lc) 250-45 0 normal Not Available [address], [address], 08/25/2022 12:25:50 08/24/20 22 08/25/2022 IRON, TIBC AND MINA TIN PANEL % saturation 45 %_(ca lc) 16-45 normal Not Available [address], [address], 08/25/2022 12:25:50 08/24/20 22 08/25/2022 IRON, TIBC AND MINA TIN PANEL ferritin 12 NG/mL 16-232 low Not Available [address], [address], 08/25/2022 12:25:50 09/08/20 22 09/07/2022 XR, hip + pelvi s, unila teral , 2 or 3 view No observ ation record ed. [id number] [facility] (Imaging) [address], [place], [address], 01/24/2023 17:16:26 01/15/20 23 01/12/2023 RF, upper gastr ointe keagan l tract , w/ contr ast PO No observ ation record ed. [email or web address] [facility] [address], [place], [address], 02/05/2023 10:01:26 01/15/20 23 01/12/2023 US, abdom en No observ ation record ed. [email or web address] [facility] [address], [place], [address], 02/05/2023 10:01:27 02/14/20 23 02/12/2023 upper endos copy proce dure (EGD) (PROC ) No observ ation record ed. [email or web address] Not Available 2022 14:21:08 08/24/20 23 08/24/2023 MRI, cervi lashonda spine , w/o contr ast No observ ation record ed. [facility] [place] [address] Imaging [address]22 [address], [place], [address], 11/27/2023 17:37:36 Result Notes None recorded. Problems Name Problem SNOMED Code Status Onset Date Resolution Date Notes Provider Name and Address Organization Details Recorded Time Dysfunctio n of left eustachian tube 8809944562985 106 Active 2021 Not Available [facility] 3 17:14:33 Injury of ankle 678728448 Active Not Available [facility] 3 17:14:33 Lumbar radiculopa thy 473916940 Active 2021 Not Available [facility] 3 17:14:33 Cellulitis of knee 09410468 Active Not Available [facility] 3 17:14:33 Indigestio n 498963682 Active Not Available [facility] 3 17:14:33 Generalize d headache 486988691 Active Not Available [facility] 3 17:14:34 Insomnia 307669282 Active Not Available [facility] 3 17:14:34 Lumbago with sciatica 914881674 Active 2021 Not Available [facility] 3 17:14:34 Abdominal pain 94126334 Active 2022 Not Available [facility] 3 17:14:34 Sore throat 566521741 Active Not Available [facility] 3 17:14:34 Malaise and fatigue 737888677 Active 2021 Not Available [facility] 3 17:14:34 Acute low back pain 653427274 Active 2021 Not Available [facility] 3 17:14:34 Pain of left hip joint 0703527063483 00 Active 2021 Not Available [facility] 3 17:14:34 Acute pharyngiti s 155605265 Active Not Available [facility] 3 17:14:35 Major depressive disorder 123590901 Active 2021 Not Available [facility] 3 17:14:35 Fever 919193432 Active Not Available [facility] 3 17:14:35 Cervical spondylosi s 533687476 Active Not Available [facility] 3 17:14:35 Cervical arthritis 498920394 Active Not Available [facility] 3 17:14:35 Paronychia of toe 646317771 Active Not Available [facility] 3 17:14:35 Vertigo 830071372 Active 2021 Not Available [facility] 3 17:14:35 Nausea 380285897 Active 2022 Not Available [facility] 3 17:14:36 Dyssomnia 45922834 Active 2021 Not Available [facility] 3 17:14:36 Viral syndrome 826314552 Active Not Available [facility] 3 17:14:36 Change in stool caliber 54216356 Active Not Available [facility] 3 17:14:36 Muscle strain 37170284 Active Not Available [facility] 3 17:14:36 Charleyhor se 31239191 Active Not Available [facility] 3 17:14:36 Joint pain 63502090 Active Not Available [facility] 3 17:14:37 Degenerati on of cervical interverte bral disc 52340961 Active 2021 Not Available [facility] 3 17:14:37 Incontinen ce of feces 90232076 Active 2021 Not Available [facility] 3 17:14:37 Epigastric pain 86333246 Active Not Available [facility] 3 17:14:37 Perineural cyst 41734966 Active 2021 Not Available [facility] 3 17:14:37 Neck pain 76148433 Active 2021 Not Available [facility] 3 17:14:37 Upper abdominal pain 82260551 Active 2022 Not Available [facility] 3 17:14:38 Fatigue 55474420 Active Not Available [facility] 3 17:14:38 Mixed anxiety and depressive disorder 994933879 Active 2022 ELISE Cummings null, MA [employer] 3 14:37:25 Pain in sacrum 6866657540 Active 2022 DESIREE Meehan [address] [facility], [place] [address], [place], [address] , [employer] 3 11:35:05 Mass of buttock Active 2022 DESIREE Meehan [address] [facility], [facility] [address], [place], [address] , [employer] [facility] [employer] 3 11:37:23 Problem Notes None recorded. Procedures Surgical History Date Name Laterality Status Provider Name and Address Organization Details Recorded Time 07/03/2022 other completed Not Available [facility] 01/24/2023 17:13:07 07/17/2017 other completed Not Available [facility] 01/24/2023 17:13:07 other completed Not Available [facility] 11/2022 17:13:07 other completed Not Available [facility] 11/2022 17:13:07 other completed Not Available [facility] 11/2022 17:13:07 other completed Not Available [facility] 11/2022 17:13:07 Imaging Results Imaging Date Name Status LastModified by Organization Details LastModified Time 01/12/2023 RF, upper gastrointestinal tract, w/ contrast PO completed [email or web address] [facility] [address], [place], [address], 02/05/2023 10:01:26 01/12/2023 US, abdomen completed [email or web address] [facility] [address] [place] [address] [address], [place], [address], 02/05/2023 10:01:27 09/07/2022 XR, hip + pelvis, unilateral, 2 or 3 view completed [id number] [facility] (Imaging) [address] [facility] [address], [place], [address], 01/24/2023 17:16:26 02/12/2023 upper endoscopy procedure (EGD) (PROC) [facility] 2023 14:21:08 08/24/2023 MRI, cervical spine, w/o contrast completed [email or web address] [facility] [address], [place], [address], 11/27/2023 17:37:36 Procedure Notes None recorded. Medical Equipment None Reported. Allergies Allergen ID Allergen Name Allergen Category Reaction Reaction Severity Criticality Documentation Date Start Date Code Code System Note Provider Name and Address Organization Details Recorded Time 56268 vancomyci n medicatio n itching severe Not available 01/24/2023 88759 RxNorm also skin turns red Not Available [facility] 17:16:22 25292 Product containin g penicilli n (product) medicatio n hives Not available Not available 01/24/2023 88045 8001 SNOMED Not Available [facility] 3 17:16:23 82721 latex environme nt,medica tion rash Not available Not available 01/24/2023 65399 91 RxNorm Not Available [facility] 17:16:23 54141 Keflex medicatio n hives Not available Not available 01/24/2023 84059 7 RxNorm Not Available [facility] 17:16:23 Medications Name Sig Start Date Stop Date Status Note LastModified by Organization Details LastModified Time cyclobenz aprine 10 mg tablet TAKE 1/2 TO 1 TABLET BY MOUTH THREE TIMES A DAY NEEDED FOR PAIN 02/05 completed Not Available Not Available Not Available hydrocodo ne 7.5 mg-ibupro fen 200 mg tablet Take 1 tablet every 6-8 hours by oral route as needed. active Not Available Not Available No t Available azithromy majo 250 mg tablet TAKE 2 TABLETS (500 MG) BY ORAL ROUTE ONCE DAILY FOR 1 DAY THEN 1 TABLET (250 MG) BY ORAL ROUTE ONCE DAILY FOR 4 DAYS active Not Available Not Available No t Available hydrocodo ne 5 mg-acetam inophen 325 mg tablet TAKE 1 TABLET BY MOUTH EVERY 4 HOURS NEEDED FOR PAIN active Not Available Not Available No t Available meloxicam 15 mg tablet Take 1 tablet every day by oral route with meals. active Not Available Not Available No t Available sucralfat e 1 gram tablet TAKE 1 TABLET BY MOUTH TWICE A DAY 02/05 completed Not Available Not Available Not Available prednison e 20 mg tablet take 3 tabs po daily x 2 days, thentake 2 tabs po daily x 2 days, thentake 1 tab po daily x 2 days, thentake 1/2 tab po daily x 2 days active Not Available Not Available No t Available Motrin IB 200 mg tablet Take 3 tablets every 6 hours by oral route as needed. 2018 active For Arthriti s Not Available Not Available Not Available hydroxyzi ne HCl 50 mg tablet TAKE 1 TABLET BY MOUTH AT BEDTIME NEEDED active Not Available Not Available No t Available sulfameth oxazole 800 mg-trimet hoprim 160 mg tablet Take 1 tablet every 12 hours by oral route. 08/20 completed Not Available Not Available Not Available ketorolac 10 mg tablet Take 1 tablet 4 times a day by oral route as needed for 5 days. active Not Available Not Available No t Available Kenalog 40 mg/mL suspensio n for injection Take 2 mL by injectio n route. [address] [facility]#[id number] Not Available Not Available Not Available alprazola m 0.25 mg tablet Take 1 tablet 3 times a day by oral route as needed. active Not Available Not Available No t Available Nitrostat 0.4 mg sublingua l tablet active Not Available Not Available Not Available trazodone 100 mg tablet TAKE ONE TO ONE AND ONE-HALF TABLETS BY MOUTH AT BEDTIME 09/18 completed Not Available Not Available Not Available meclizine 25 mg tablet Take 1 tablet 3 times a day by oral route as needed. active Not Available Not Available No t Available cephalexi n 500 mg capsule Take 1 capsule every 8 hours by oral route. active Not Available Not Available No t Available neomycin- polymyxin -dexameth 3.5 mg/mL-10, 000 unit/mL-0 .1% eye drops INSTILL 1 DROP INTO THE AFFECTED EYE(S) FOUR TIMES DAILY FOR 7 DAYS FOR INFECTIO N 06/16 completed Not Available Not Available Not Available polymyxin B sulfate 10,000 unit-trim ethoprim 1 mg/mL eye drops active Not Available Not Available No t Available ammonium lactate 12 % topical cream APPLY TOPICALL Y TWICE A DAY TO DRY AREAS NEEDED 09/30 completed Not Available Not Available Not Available gabapenti n 100 mg capsule TAKE 1 TO 2 CAPSULES BY MOUTH EVERY DAY AT BEDTIME 06/16 completed Not Available Not Available Not Available diazepam 10 mg tablet TAKE 1 TABLET BY MOUTH ONE HOUR PRIOR TO PROCEDUR E active Not Available Not Available No t Available methylpre dnisolone 4 mg tablets in a dose pack TAKE 6 TABLETS ON DAY 1 DIRECTED ON PACKAGE AND DECREASE BY 1 TAB EACH DAY FOR A TOTAL OF 6 DAYS 09/06 completed Not Available Not Available Not Available ketorolac 60 mg/2 mL intramusc ular solution Inject 1 mL every 6 hours by intramus cular route. 08/24 completed Not Available Not Available Not Available hydrocort isone 2.5 % topical ointment 09/30 completed Not Available Not Available Not Available ondansetr on 4 mg disintegr ating tablet 08/10 completed Not Available Not Available Not Available diazepam 5 mg tablet TAKE 3 TABLETS BY MOUTH 1 HOUR PRIOR TO PROCEDUR E 07/14 completed Not Available Not Available Not Available escitalop florentin 10 mg tablet TAKE 1 TABLET BY MOUTH EVERY DAY active Not Available Not Available No t Available cyclobenz aprine 5 mg tablet Take 1 tablet 3 times a day by oral route as needed. active Not Available Not Available No t Available azelaic acid 15 % topical gel 03/01 completed Not Available Not Available Not Available metronida zole 1 % topical gel 11/30 completed Not Available Not Available Not Available magnesium daily 2018 active Not Available Not Available Not Avai lable melatonin tk one t po qhs prn 09/18 completed Not Available Not Available Not Available butalbita l-acetami nophen-ca ffeine 50 mg-300 mg-40 mg capsule Take 1 capsule every 6-8 hours by oral route as needed. 03/01 completed Not Available Not Available Not Available isomethep tene 65 mg-caffei ne 20 mg-acetam inophen 325 mg tablet Take 1 tablet every 4-6 hours by oral route as needed. 09/30 completed Not Available Not Available Not Available selenium sulfide 2.5 % lotion 09/30 completed Not Available Not Available Not Available Emverm 100 mg chewable tablet Chew 1 tablet twice a day by oral route for 3 days. 01/21 completed Not Available Not Available Not Available Tri Femynor (28) 0.18 mg(7)/0.2 15 mg(7)/0.2 5 mg(7)-35 mcg tablet TAKE 1 TABLET BY MOUTH EVERY DAY 06/16 completed Not Available Not Available Not Available Isibloom 0.15 mg-0.03 mg tablet TAKE 1 TABLET BY MOUTH EVERY DAY CONTINUO USLY, SKIP PLACEBO active Not Available Not Available No t Available Ariella 0.25 mg-35 mcg tablet TAKE ONE TABLET BY MOUTH EVERY DAY CONTINUO USLY, SKIPPING PLACEBO PILLS 02/05 completed Not Available Not Available Not Available Afluria Qd 2018- (36 mos up)(PF)60 mcg (15 mcg x4)/0.5 mL IM syringe active Not Available Not Available Not Available Flucelvax Quad (PF) 60 mcg (15 mcg x 4)/0.5 mL IM syringe PHARMACI ST ADMINIST ERED IMMUNIZA TION ADMINIST ERED AT TIME OF DISPENSI NG 12/01 completed Not Available Not Available Not Available Opzelura 1.5 % topical cream APPLY TO FACE ONCE DAILY active Not Available Not Available No t Available Vitals Date Recorded Body mass index (BMI) Body mass index (BMI) Body mass index (BMI) Body height Body height Body height Oxygen saturation Oxygen saturation in Arterial blood by Pulse oximetry Heart rate Body temperature Body temperature Body temperature Body weight Body weight Body weight Systolic blood pressure Diastolic blood pressure Provider Name and Address Organization Details Last Updated DateTime 3 22.9 kg/m2 23 kg/m2 23 kg/m2 157.48 cm 157.48 cm 157.48 cm 98 % 98 % 76 /min 97.5 [degF] 97.8 [degF] 98.1 [degF] 28877.0 5 g 70684.6 4 g 66115.6 4 g 112 mm[Hg] 70 mm[Hg] Not Available [facility] 3 17:13:30 Date Recorded Body height Body temperature Body mass index (BMI) Body weight Respiratory rate Oxygen saturation Oxygen saturation in Arterial blood by Pulse oximetry Heart rate Systolic blood pressure Diastolic blood pressure Provider Name and Address Organization Details Last Updated DateTime 3 157.48 cm 97.5 [degF] 23.6 kg/m2 07007.4 2 g 16 /min 97 % 97 % 78 /min 122 mm[Hg] 80 mm[Hg] ELISE Cummings [employer] 3 09:58:48 Date Recorded Systolic blood pressure Diastolic blood pressure Provider Name and Address Organization Details Last Updated DateTime 02/05/2023 100 mm[Hg] 72 mm[Hg] DESIREE Meehan [address] [place] [address], [facility] [address], [place], [address], [employer] 02/05/2023 10:20:38 Date Recorded Body height Body temperature Body mass index (BMI) Body weight Respiratory rate Oxygen saturation Oxygen saturation in Arterial blood by Pulse oximetry Heart rate Systolic blood pressure Diastolic blood pressure Provider Name and Address Organization Details Last Updated DateTime 3 157.48 cm 97.4 [degF] 22.9 kg/m2 86832.0 5 g 16 /min 98 % 98 % 80 /min 102 mm[Hg] 60 mm[Hg] ELISE Cummings [facility] 3 11:00:56 Social History Question Answer Notes LastModified by Organizat ion Details LastModified Time Tobacco Smoking Status Never Smoker Not Available [facility] 01/24/2023 17:12:59 What Is Your Level Of Alcohol Consumption? Occasional [id number] Information not available 01/24/2023 What Is Your Level Of Caffeine Consumption? None MIGRATION.[id number] Information not available 01/24/2023 How Much Tobacco Do You Chew? None MIGRATION.[id number] 7793 Information not available 01/24/2023 In The 14 Days Before Symptom Onset, Have You Had Close Contact With A Laboratory-confir med COVID-19 While That Case Was Ill? No MIGRATION.[id number] Information not available 01/24/2023 In The 14 Days Before Symptom Onset, Have You Had Close Contact With A Person Who Is Under Investigation For COVID-19 While That Person Was Ill? No MIGRATION.[id number] Information not available 01/24/2023 Are You Currently Employed? Yes [email or web address] Information not available 02/02/2023 What Type Of Diet Are You Following? REGULAR MIGRATION.343496 8789 Information not available 01/24/2023 Which Illicit Or Recreational Drugs Have You Used? None MIGRATION.[id number] 1599 Information not available 01/24/2023 Do You Or Have You Ever Used E-cigarettes Or Vape? 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 No MIGRATION.994555 5844 Information not available 01/24/2023 Do You Use Insect Repellent Routinely? No MIGRATION.393691 5499 Information not available 01/24/2023 What Is Your Relationship Status? MIGRATION.677576 2536 Information not available 01/24/2023 Do You Use Your Seat Belt Or Car Seat Routinely? Yes MIGRATION.007411 9074 Information not available 01/24/2023 Do You Have Smoke And Carbon Monoxide Detectors In Your Home? Yes MIGRATION.825958 4345 Information not available 01/24/2023 Do You Or Have You Ever Used Smokeless Tobacco? Never Used Smokeless Tobacco MIGRATION.893950 6848 Information not available 01/24/2023 How Much Tobacco Do You Smoke? No MIGRATION.443724 5577 Information not available 01/24/2023 Do You Use Any Illicit Or Recreational Drugs? No MIGRATION.842002 4787 Information not available 01/24/2023 Do You Use Sunscreen Routinely? Yes MIGRATION.253314 5442 Information not available 01/24/2023 Have You Recently Traveled Abroad? No MIGRATION.624417 0772 Information not available 01/24/2023 Do You Have Any Dietary Restrictions? No MIGRATION.391226 4290 Information not available 01/24/2023 Do You Or Have You Ever Used Any Other Forms Of Tobacco Or Nicotine? No MIGRATION.963281 3201 Information not available 01/24/2023 Sex: Unknown Functional Status Question Answer Note LastModified by Organizat ion Details LastModified Time What is your exercise level? Moderate [id number] Information not available 01/24/2023 Mental Status None recorded. Family History Relationship Description Onset Age of this Age Resolved Age Notes LastModified by Organization Details LastModified Time Father Coronary arterioscler osis [id number] Not available 01/24/2023 17:13:08 Notes:NO ENT Medical History Condition Response SKIN PROBLEMS Y DIABETES, TYPE N ARTHRITIS Y URINARY/BLADDER/KIDNEY PROBLEMS Y BACK / NECK PROBLEMS Y HYPERTENSION N HIGH CHOLESTEROL / HYPERLIPIDEMIA N Gynecological History Statement/Question Response Abnormal Pap N Date of Last Mammogram Date of Last Colonoscopy Most Recent Bone Density Date of LMP Sexually Active? Y Menses Monthly N Date of Last Pap 12/27/2016 Current Control Method BCPs Obstetrics History GPAL:G 4 P 0 0 0 4 Type Value Living 4 Total 4 Immunizations Vaccine Type Date Status Note Provider Nam e and Address Organization Details Recorded Time Influenza, split virus, quadrivalent, preservative 0 completed Not Available [facility] 01/24/2023 17:16:18 influenza, unspecified formulation 6 completed Not Available [facility] 01/24/2023 17:16:18 Influenza, split virus, quadrivalent, preservative 9 completed Not Available [facility] 01/24/2023 17:16:18 influenza, unspecified formulation 5 completed Not Available [facility] 01/24/2023 17:16:19 Influenza, split virus, quadrivalent, PF 2 completed Not Available [facility] 01/24/2023 17:16:20 Influenza, split virus, quadrivalent, PF 8 completed Not Available [facility] 01/24/2023 17:16:20 Past Encounters Encounter ID Performer Location Encounter Start Date Encounter Closed Date Diagnosis/Indication Diagnosis SNOMED-CT Code Diagnosis ICD10 Code Diagnosis Note [id number] [facility] [address] [place] [address] 04/22/2021 00:00:00 04/22/2021 13:20:24 [id number] [facility] [address] [place] [address] 08/24/2021 00:00:00 08/24/2021 11:04:18 [id number] [facility] [address] [place] [address] 01/31/2022 00:00:00 02/23/2022 16:48:34 [id number] [facility] [address] [place] [address] 06/16/2022 00:00:00 06/24/2022 17:24:51 [id number] [facility] [address] [place] [address] 07/14/2022 00:00:00 07/23/2022 14:17:45 [id number] [facility] [address] [place] [address] 08/08/2022 00:00:00 08/24/2022 20:16:28 [id number] [facility] [address] [place] [address] 09/07/2022 00:00:00 09/24/2022 13:08:47 [id number] [facility] [address] [place] [address] 09/15/2022 00:00:00 09/19/2022 17:09:32 [id number] [facility] [address] [place] [address] 09/18/2022 00:00:00 09/18/2022 11:07:56 [id number] [facility] [address] [place] [address] 11/07/2022 00:00:00 11/07/2022 10:48:16 [id number] [facility] [address] [place] [address] 01/03/2023 00:00:00 01/20/2023 10:07:49 [id number] DESIREE Meehan [facility] [address] [place] [address] 02/05/2023 09:53:07 02/05/2023 10:21:41 Adult health examination 349661163 Z00.00 annual wellness completed Mixed anxi ety and depressive disorder 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 kenalog injection given in office that has helped in past. Degenerati on of cervical intervertebral disc 21915101 M50.30 refer back to PM for cervical DDD Mass of buttock 72446262 06 R22.2 pt feels painful nodule in buttock since fall ; she would like u/s completed to evaluate the region. Cervical spondylosis 387 095078 M47.812 underlying hx noted. Health Concerns Section Related Observation LastModified by Organization Detai ls LastModified Time None Recorded Concern Status LastModified by Organization Details LastModified Time None Recorded Advance Directives Directive None Recorded Payers Encounter Date Sequence Insurance Name Policy Number Policy Multani Covered Member ID Multani Member ID Guarantor Name 02/05/2023 1 [employer] [id number] Maggy Rodriguez [id number] Maggy Rodriguez 07/20/2023 1 [facility]: (PPO) [id number] Maggy Rodriguez [id number] Maggy Rodriguez Notes Date Note Type Note Provider Name and Address Organization Details Recorded Time 01/03/2023 text/html Abdominal PainReported bypatient.Location:[facility] Quality:bloating;cram ping;burning Duration:started:; 09/16 Aggravating Factors:eating Alleviating Factors:nothing gives relief Associated Symptoms:heartburn Other:denies possible Not Available [facility] 01/20/2023 10:07:49 02/05/2023 text/html Anxiety/Depressi onRep orted bypatient.Quality:jain snt matter time of day Severity:denies suicidal ideations; able to maintain relationships; does not interfere with activities of daily living Duration:symptoms lasting over 2 weeks Onset/Timing:still present Context:no major life stressors Associated Symptoms:denies homicidal ideations; no significant weight gain; no significant weight loss; no visual/auditory hallucinations; no delusions; no shortness of breath wellness DESIREE Meehan [address] [place] [address], [place], [address], [facility] 02/23/2023 12:50:00 07/20/2023 text/html Generic HPI TemplateReported bypatient.Notes:Pt states she needs a new referral to go back to PM for neck pain and back pain. She does feel a mass in her lower back/buttock where she had the injury. She noticed it in January and thinks it is getting bigger. DESIREE Meehan [address], [place], [address], [facility] 07/24/2023 22:35:21 OBGyn Episode No OBEpisode recorded.
--- OUTSIDE RECORDS SUMMARY | 2025-01-13 07:27 | XMS_ITS | Data Portability ---
Author Organization [facility] Address [address] [place] [address] Assessment Encounter Date Assessment Date Assessment LastModified by Organization Details LastModified Time 01/30/2024 01/30/2024 pap smear UTD with Dr. Brar Mammogram still to complete she's waiting using evidence based medicine to decide when to get hers. colon screening due june. [email or web address] Not available 01/30/2024 10:07:41 Plan of Treatment Reminders Order Date Submit Date Provider Last Modified By Organization Details Last Modified Time Details Appointments ANY 15 2024 01:15P M DESIREE Meehan Not available Not available Not available Lab TSH + free T4, serum 2023 024 MATTEO Brooke, [address], [address], [place], [address], 02/14/2024 08:26:25 vitamin B12 + folate, serum or blood 2023 024 MATTEO Brooke, [address]22 [address], [address], [place], [address], 02/14/2024 08:26:27 CBC w/ auto diff 2023 024 MATTEO Brooke, [address]22 [address], [address], [place], [address], 02/14/2024 08:26:30 iron + total iron-bind ing capacity (TIBC), serum 2023 024 MATTEO Brooke, 2022 [address], [address], [place], [address], 02/14/2024 08:26:28 ferritin, serum or plasma 2023 024 [facility], [address]22 [address], [address], [place], [address], 02/14/2024 08:26:29 vitamin D, 25-hydrox y, total, serum 2023 024 [facility], [address], [address], [place], [address], 02/14/2024 08:26:30 noninvasi ve colorecta l cancer DNA + occult blood screening , QL, stool 2023 024 [email or web address] (Cologuard Orders Only), [address], [address], [place], [address], 07/29/2024 07:54:43 CMP, serum or plasma 2023 024 [facility], [address], [address], [place], [address], 02/14/2024 08:26:26 urinalysi s complete, reflex culture 2023 024 [facility], [address], [address], [place], [address], 02/14/2024 08:26:27 lipid panel, serum 2023 024 [facility], [address], [address], [place], [address], 02/14/2024 08:26:25 HbA1c (hemoglob in A1c), blood 2023 024 [facility], [address], [address], [place], [address], 02/14/2024 08:26:29 Referral None recorded. Procedures None recorded. Surgeries None recorded. Imaging CT, head, w/o contrast - STAT hold and call Prior auth #[id number] 96 good 09/29/24-1 01/14/24 per Lucie Alvarez @ [facility] 2023 024 [facility], [address] [facility], [facility] [address], [address], 11/14/2024 12:08:55 Medication Orders None recorded. Patient TargetsNo targets recorded. Patient InstructionsNo instructions recorded. Reason for Referral None Reported. Results Created Date Observation Date Name Description Value Unit Range Abnormal Flag Note LastModifiedBy Organization Detail LastModifiedTime 02/13/20 24 02/14/2024 LIPID PANEL W/ CHOL/ HDL RATIO cholesterol, total 226 mg/dL 100-19 9 above high normal Not Available [facility] ([facility]) [address] [place], [address], 02/14/2024 08:26:25 02/13/20 24 02/14/2024 LIPID PANEL W/ CHOL/ HDL RATIO triglyceride s 80 mg/dL 0-149 Not Available [facility] ([facility]) [address] [place], [address], 02/14/2024 08:26:25 02/13/20 24 02/14/2024 LIPID PANEL W/ CHOL/ HDL RATIO HDL cholesterol 107 mg/dL >39 Not Available [facility] ([facility]) [address] [place], [address], 02/14/2024 08:26:25 02/13/20 24 02/14/2024 LIPID PANEL W/ CHOL/ HDL RATIO VLDL cholesterol lashonda 14 mg/dL 5-40 Not Available [facility] ([facility]) [address] [place], [address], 02/14/2024 08:26:25 02/13/20 24 02/14/2024 LIPID PANEL W/ CHOL/ HDL RATIO LDL chol calc ([facility]) 105 mg/dL 0-99 above high normal Not Available [facility] ([facility]) [address] [place], [address], 02/14/2024 08:26:25 02/13/20 24 02/14/2024 LIPID PANEL W/ CHOL/ HDL RATIO T. chol/HDL ratio 2.1 ratio 0.0-4. 4 T. Chol/ HDL Ratio Men Women 1/2 Avg.R isk 3.4 3.3 Avg.R isk 5.0 4.4 2X Avg.R isk 9.6 7.1 3X Avg.R isk 23.4 11.0 Not Available [facility] ([facility]) [address] [place], [address], 02/14/2024 08:26:25 02/13/20 24 02/14/2024 TSH+F REE T4 TSH 1.530 uIU/m L 0.450- 4.500 Not Available [facility] ([facility]) [address] [place], [address], 02/14/2024 08:26:25 02/13/20 24 02/14/2024 TSH+F REE T4 T4,free(dire ct) 1.21 NG/dL 0.82-1 .77 Not Available [facility] ([facility]) [address] [place], [address], 02/14/2024 08:26:25 02/13/20 24 02/14/2024 COMP. METAB OLIC PANEL (14) glucose 66 mg/dL 70-99 below low normal Not Available [facility] ([facility]) [address] [place], [address], 02/14/2024 08:26:26 02/13/20 24 02/14/2024 COMP. METAB OLIC PANEL (14) BUN 13 mg/dL 6-24 Not Available [facility] ([facility]) [address] [place], [address], 02/14/2024 08:26:26 03/20/20 24 02/14/2024 COMP. METAB OLIC PANEL (14) creatinine 0.86 mg/dL 0.57-1 .00 Not Available [facility] ([facility]) [address] [place], [address], 02/14/2024 08:26:26 02/13/20 24 02/14/2024 COMP. METAB OLIC PANEL (14) eGFR 85 mL/mi n/1.7 3 >59 Not Available [facility] ([facility]) [address] [facility], [place], [address], 02/14/2024 08:26:26 02/13/20 24 02/14/2024 COMP. METAB OLIC PANEL (14) BUN/creatini ne ratio 15 9-23 Not Available [facility] ([facility]) [address] [place], [address], 02/14/2024 08:26:26 02/13/20 24 02/14/2024 COMP. METAB OLIC PANEL (14) sodium 139 mmol/ L 134-14 4 Not Available [facility] ([facility] [address] [place], [address], 02/14/2024 08:26:26 02/13/20 24 02/14/2024 COMP. METAB OLIC PANEL (14) potassium 4.4 mmol/ L 3.5-5. 2 Not Available [facility] ([facility]) [address] [place], [address], 02/14/2024 08:26:26 02/13/20 24 02/14/2024 COMP. METAB OLIC PANEL (14) chloride 104 mmol/ L 96-106 Not Available [facility] ([facility]) [address] [place], [address], 02/14/2024 08:26:26 02/13/20 24 02/14/2024 COMP. METAB OLIC PANEL (14) carbon dioxide, total 21 mmol/ L 20-29 Not Available [facility] ([facility]) [address] [facility], [place], [address], 02/14/2024 08:26:26 02/13/20 24 02/14/2024 COMP. METAB OLIC PANEL (14) calcium 9.9 mg/dL 8.7-10 .2 Not Available [facility] ([facility]) [address] [facility], [place], [address], 02/14/2024 08:26:26 02/13/20 24 02/14/2024 COMP. METAB OLIC PANEL (14) protein, total 7.0 g/dL 6.0-8. 5 Not Available [facility] ([facility]) [address] [facility], [place], [address], 02/14/2024 08:26:26 02/13/20 24 02/14/2024 COMP. METAB OLIC PANEL (14) albumin 4.5 g/dL 3.9-4. 9 Not Available [facility] ([facility]) [address] [place], [address], 02/14/2024 08:26:26 02/13/20 24 02/14/2024 COMP. METAB OLIC PANEL (14) globulin, total 2.5 g/dL 1.5-4. 5 Not Available [facility] ([facility]) [address] [place], [address], 02/14/2024 08:26:26 02/13/20 24 02/14/2024 COMP. METAB OLIC PANEL (14) A/G ratio 1.8 1.2-2. 2 Not Available [facility] ([facility]) [address] [place], [address], 02/14/2024 08:26:26 02/13/20 24 02/14/2024 COMP. METAB OLIC PANEL (14) bilirubin, total 0.4 mg/dL 0.0-1. 2 Not Available [facility] ([facility]) [address], [place], [address], 02/14/2024 08:26:26 02/13/20 24 02/14/2024 COMP. METAB OLIC PANEL (14) alkaline phosphatase 59 IU/L 44-121 Not Available [facility] ([facility]) [address], [place], [address], 02/14/2024 08:26:26 02/13/20 24 02/14/2024 COMP. METAB OLIC PANEL (14) AST (SGOT) 13 IU/L 0-40 Not Available [facility] ([facility]) [address] [facility], [place], [address], 02/14/2024 08:26:26 02/13/20 24 02/14/2024 COMP. METAB OLIC PANEL (14) ALT (SGPT) 9 IU/L 0-32 Not Available [facility] ([facility]) [address] [facility], [place], [address], 02/14/2024 08:26:26 02/13/20 24 02/14/2024 UA WITH CULTU RE REFLE X specific gravity 1.017 1.005- 1.030 Not Available [facility] ([facility]) [address] [facility], [place], [address], 02/14/2024 08:26:27 02/13/20 24 02/14/2024 UA WITH CULTU RE REFLE X pH 7.0 5.0-7. 5 Not Available [facility] ([facility]) [address] [facility], [place], [address], 02/14/2024 08:26:27 02/13/20 24 02/14/2024 UA WITH CULTU RE REFLE X urine-color Yellow yellow Not Available [facility] ([facility]) [address] [facility], [place], [address], 02/14/2024 08:26:27 02/13/20 24 02/14/2024 UA WITH CULTU RE REFLE X appearance Clear clear Not Available [facility] ([facility]) [address] [facility], [place], [address], 02/14/2024 08:26:27 02/13/20 24 02/14/2024 UA WITH CULTU RE REFLE X WBC esterase Negati ve negati ve Not Available [facility] ([facility]) [address] [facility], [place], [address], 02/14/2024 08:26:27 02/13/20 24 02/14/2024 UA WITH CULTU RE REFLE X protein Negati ve negati ve/tra ce Not Available [facility] ([facility]) [address] [facility], [place], [address], 02/14/2024 08:26:27 02/13/20 24 02/14/2024 UA WITH CULTU RE REFLE X glucose Negati ve negati ve Not Available [facility] ([facility]) [address] [facility], [place], [address], 02/14/2024 08:26:27 02/13/20 24 02/14/2024 UA WITH CULTU RE REFLE X ketones Negati ve negati ve Not Available [facility] ([facility]) [address] [facility], [place], [address], 02/14/2024 08:26:27 02/13/20 24 02/14/2024 UA WITH CULTU RE REFLE X occult blood Negati ve negati ve Not Available [facility] ([facility] [address] [place], [address], 02/14/2024 08:26:27 02/13/20 24 02/14/2024 UA WITH CULTU RE REFLE X bilirubin Negati ve negati ve Not Available [facility] ([facility]) [address] [place], [address], 02/14/2024 08:26:27 02/13/20 24 02/14/2024 UA WITH CULTU RE REFLE X urobilinogen ,semi-qn 0.2 mg/dL 0.2-1. 0 Not Available [facility] ([facility]) [address] [facility], [place], [address], 02/14/2024 08:26:27 02/13/20 24 02/14/2024 UA WITH CULTU RE REFLE X nitrite, urine Negati ve negati ve Not Available [facility] ([facility]) [address] [facility], [place], [address], 02/14/2024 08:26:27 02/13/20 24 02/14/2024 UA WITH CULTU RE REFLE X microscopic examination Commen t Micro scopi c not indic ated and not perfo rmed. Not Available [facility] ([facility]) [address] [facility], [place], [address], 02/14/2024 08:26:27 02/13/20 24 02/14/2024 UA WITH CULTU RE REFLE X urinalysis reflex Commen t This speci men will not refle x to a Urine Cultu re. Not Available [facility] ([facility]) [address] [facility], [place], [address], 02/14/2024 08:26:27 02/13/20 24 02/14/2024 VITAM IN B12 AND FOLAT E vitamin B12 1751 pg/mL 232-12 45 above high normal Not Available [facility] ([facility]) [address] [place], [address], 02/14/2024 08:26:27 02/13/20 24 02/14/2024 VITAM IN B12 AND FOLAT E folate (folic acid), serum 9.2 NG/mL >3.0 A serum folat e natalie ntrat ion of less than 3.1 ng/mL is consi dered to repre sent clini lashonda defic iency . Not Available [facility] ([facility]) [address] [place], [address], 02/14/2024 08:26:27 02/13/20 24 02/14/2024 IRON AND TIBC iron bind.cap.(TI BC) 387 ug/dL 250-45 0 Not Available [facility] ([facility]) [address] [place], [address], 02/14/2024 08:26:28 02/13/20 24 02/14/2024 IRON AND TIBC UIBC 312 ug/dL 131-42 5 Not Available [facility] ([facility] [address] [place], [address], 02/14/2024 08:26:28 02/13/20 24 02/14/2024 IRON AND TIBC iron 75 ug/dL 27-159 Not Available [facility] ([facility] [address] [place], [address], 02/14/2024 08:26:28 02/13/20 24 02/14/2024 IRON AND TIBC iron saturation 19 % 15-55 Not Available [facility] ([facility] [address] [place], [address], 02/14/2024 08:26:28 02/13/20 24 02/13/2024 HEMOG LOBIN A1C hemoglobin A1C 5.4 % 4.8-5. 6 Predi abete s: 5.7 - 6.4 Diabe cem: >6.4 Glyce wyatt contr ol for adult s with diabe cem: <7.0 Not Available [facility] ([facility]) [address] [place], [address], 02/14/2024 08:26:28 02/13/20 24 02/14/2024 MINA TIN ferritin 17 NG/mL 15-150 Not Available [facility] ([facility]) [address] [place], [address], 02/14/2024 08:26:29 02/13/20 24 02/13/2024 CBC WITH DIFFE RENTI AL/PL ATELE T WBC 6.0 x10e3 /uL 3.4-10 .8 Not Available [facility] ([facility] [address] [facility], [place], [address], 02/14/2024 08:26:30 02/13/20 24 02/13/2024 CBC WITH DIFFE RENTI AL/PL ATELE T RBC 4.69 x10e6 /uL 3.77-5 .28 Not Available [facility] ([facility] [address] [place], [address], 02/14/2024 08:26:30 02/13/20 24 02/13/2024 CBC WITH DIFFE RENTI AL/PL ATELE T hemoglobin 14.0 g/dL 11.1-1 5.9 Not Available [facility] ([facility] [address] [place], [address], 02/14/2024 08:26:30 02/13/20 24 02/13/2024 CBC WITH DIFFE RENTI AL/PL ATELE T hematocrit 42.3 % 34.0-4 6.6 Not Available [facility] ([facility] [address] [place], [address], 02/14/2024 08:26:30 02/13/20 24 02/13/2024 CBC WITH DIFFE RENTI AL/PL ATELE T MCV 90 fL 79-97 Not Available [facility] ([facility] [address] [place], [address], 02/14/2024 08:26:30 02/13/20 24 02/13/2024 CBC WITH DIFFE RENTI AL/PL ATELE T MCH 29.9 pg 26.6-3 3.0 Not Available [facility] ([facility] [address] [place], [address], 02/14/2024 08:26:30 02/13/20 24 02/13/2024 CBC WITH DIFFE RENTI AL/PL ATELE T MCHC 33.1 g/dL 31.5-3 5.7 Not Available [facility] ([facility] [address] [facility], [place], [address], 02/14/2024 08:26:30 02/13/20 24 02/13/2024 CBC WITH DIFFE RENTI AL/PL ATELE T RDW 12.7 % 11.7-1 5.4 Not Available [facility] ([facility] [address] [facility], [place], [address], 02/14/2024 08:26:30 02/13/20 24 02/13/2024 CBC WITH DIFFE RENTI AL/PL ATELE T platelets 263 x10e3 /uL 150-45 0 Not Available [facility] ([facility]) [address] [facility], [place], [address], 02/14/2024 08:26:30 02/13/20 24 02/13/2024 CBC WITH DIFFE RENTI AL/PL ATELE T neutrophils 62 % notest ab. Not Available [facility] ([facility]) [address] [facility], [place], [address], 02/14/2024 08:26:30 02/13/20 24 02/13/2024 CBC WITH DIFFE RENTI AL/PL ATELE T lymphs 28 % notest ab. Not Available [facility] ([facility] [address] [facility], [place], [address], 02/14/2024 08:26:30 02/13/20 24 02/13/2024 CBC WITH DIFFE RENTI AL/PL ATELE T monocytes 7 % notest ab. Not Available [facility] ([facility] [address] [place], [address], 02/14/2024 08:26:30 02/13/20 24 02/13/2024 CBC WITH DIFFE RENTI AL/PL ATELE T eos 2 % notest ab. Not Available [facility] ([facility]) [address] [facility], [place], [address], 02/14/2024 08:26:30 02/13/20 24 02/13/2024 CBC WITH DIFFE RENTI AL/PL ATELE T basos 1 % notest ab. Not Available [facility] ([facility]) [address] [facility], [place], [address], 02/14/2024 08:26:30 02/13/20 24 02/13/2024 CBC WITH DIFFE RENTI AL/PL ATELE T neutrophils (absolute) 3.7 x10e3 /uL 1.4-7. 0 Not Available [facility] ([facility] [address] [facility], [place], [address], 02/14/2024 08:26:30 02/13/20 24 02/13/2024 CBC WITH DIFFE RENTI AL/PL ATELE T lymphs (absolute) 1.7 x10e3 /uL 0.7-3. 1 Not Available [facility] ([facility] [address] [place], [address], 02/14/2024 08:26:30 02/13/20 24 02/13/2024 CBC WITH DIFFE RENTI AL/PL ATELE T monocytes(ab solute) 0.4 x10e3 /uL 0.1-0. 9 Not Available [facility] ([facility] [address] [place], [address], 02/14/2024 08:26:30 02/13/20 24 02/13/2024 CBC WITH DIFFE RENTI AL/PL ATELE T eos (absolute) 0.1 x10e3 /uL 0.0-0. 4 Not Available [facility] ([facility] [address] [place], [address], 02/14/2024 08:26:30 02/13/20 24 02/13/2024 CBC WITH DIFFE RENTI AL/PL ATELE T baso (absolute) 0.1 x10e3 /uL 0.0-0. 2 Not Available [facility] ([facility] [address] [facility], [place], [address], 02/14/2024 08:26:30 02/13/20 24 02/13/2024 CBC WITH DIFFE RENTI AL/PL ATELE T immature granulocytes 0 % notest ab. Not Available [facility] ([facility] [address] [facility], [place], [address], 02/14/2024 08:26:30 02/13/20 24 02/13/2024 CBC WITH DIFFE RENTI AL/PL ATELE T immature grans (abs) 0.0 x10e3 /uL 0.0-0. 1 Not Available [facility] ([facility] [address] [facility], [place], [address], 02/14/2024 08:26:30 02/13/20 24 02/14/2024 VITAM IN D, 25-HY DROXY vitamin D, 25-hydroxy 30.6 NG/mL 30.0-1 00.0 Vitam in D defic iency has been defin ed by the Insti tute of Medic ine and an Endoc rine Socie ty pract ice guide line as a level of serum 25-OH vitam in D less than 20 ng/mL (1,2) . The Endoc rine Socie ty went on to furth er defin e vitam in D insuf ficie ncy as a level betwe en 21 and 29 ng/mL (2). 1. IOM (Inst itute of Medic ine). 2010. Dieta ry refer ence intak es for calci um and D. Staci edwards [place]: The [facility] Press . 2. Mahendra asif MF, Paulo tolliver [place], Ashu off-F errar i READ, et al. Evalu ation , treat ment, and preve ntion of vitam in D defic iency : an Endoc rine Socie ty clini lashonda pract ice guide line. JCEM. 2010; 96(7) :1911 -30. Not Available [facility] ([facility]) [address] [facility], [place], [address], 02/14/2024 08:26:30 08/01/20 24 08/01/2024 COLOG UARD cologuard result reportable Negati ve negati ve normal NEGAT SVETLANA TEST RESUL T. A negat svetlana Colog uard resul t indic ates a low likel ihood that a color ectal cance r (CRC) or advan alessia adeno ma (spencer omato us polyp s with more advan alessia pre-m align ant featu res) is prese nt. The chanc e that a perso n with a negat svetlana Colog uard test has a color ectal cance r is less than 1 in 1500 (nega tive predi ctive value >99.9 %) or has an advan alessia adeno ma is less than 5.3% (nega tive predi ctive value 94.7% ). These data are based on a prosp ectiv e cross -sect ional study of 10,00 0 indiv idual s at [facility] risk for color ectal cance r who were scree sami with both Colog uard and colon oscop y. (Eboni Newell. et al, N Engl J Med 2014; 370(1 4):12 86-12 97) The jacquie l value (refe rence range ) for this assay is negat svetlana. COLOG UARD RE-SC REENI NG RECOM MENDA TION: Perio dic color ectal cance r scree valentín is an impor tant part of preve ntive healt hcare for asymp tomat ic indiv idual s at [facility] risk for color ectal cance r. Follo wing a negat svetlana Colog uard resul t, the Ameri can Cance r Socie ty and U.S. Multi -Soci ety Task Force scree valentín guide lines recom mend a Colog uard re-sc corey burrell inter jose eduardo of 3 years . Refer ences : Eliza moreno Cance r Socie ty Guide line for Color ectal Cance r Scree valentín: https ://mars eid cer.o rg/ca ncer/ colon -rect al-ca ncer/ detec tion- diagn osis- stagi ng/ac s-rec ommen datio ns.ht ml.; Almas SAM, Luiza TALAMANTES, Marta NessK, Color ectal Cance r Scree valentín: Recom menda tions for Physi cians and Patie nts from the U.S. Multi -Soci ety Task Force on Color ectal Cance r Scree valentín , Helena damonog y 2017; 112:1 016-1 030. TEST DESCR IPTIO N: Abiquiu site algor ithmi c sacha sis of stool DNA-b meena kaminski with hemog lobin immun oassa y. Quant itati ve value s of indiv idual bioma rkers are not repor table and are not assoc iated with indiv idual bioma rker resul t refer ence range s. Colog uard is inten ded for color ectal cance r scree valentín of adult s of eithe r sex, 45 years or older , who are at [facility] for color ectal cance r (CRC) . Colog uard has been appro perfecto for use by the U.S. FDA. The perfo rmanc e of Colog uard was estab lishe d in a cross secti onal study of [facility] adult s aged 50-84 . Colog uard perfo rmanc e in patie nts ages 45 to 49 years was estim ated by brandi-g cuba sacha sis of near- age group s. Colon oscop ies perfo rmed for a posit svetlana resul t may find as the most clini shandra signi [facility] n: color ectal cance r [4.0% ], advan alessia adeno ma (incl uding sessi le nanci willie polyp s great er than or equal to 1cm diame ter) [20%] or non- advan alessia adeno ma [31%] ; or no color ectal neopl sierra [45%] . These estim ates are deriv ed from a prosp ectiv e cross -sect ional scree valentín study of , 0 indiv idual s at [facility] risk for color ectal cance r who were scree sami with both Colog uard and colon oscop y. (Eboni Rawls et al, N Engl J Med 2014; 370(1 4):12 86-12 97.) Colog uard may produ ce a false negat svetlana or false posit svetlana resul t (no color ectal cance r or preca ncero us polyp prese nt at colon oscop y follo w up). A negat svetlana Colog uard test resul t does not guara ntee the absen ce of CRC or advan alessia adeno ma (pre- cance r). The curre nt Colog uard scree valentín inter jose eduardo is every 3 years . (Amer ican Cance r Socie ty and U.S. Multi -Soci ety Task Force ). Colog uard perfo rmanc e data in a 0 patie nt pivot al study using colon oscop y as the refer ence metho d can be acces sed at the follo wing locat ion: www.e xactl abs.c om/re shayla . Addit ional descr iptio n of the Colog uard test proce ss, warni ngs and preca ution s can be found at www.c heather burks.c om. Not Available [facility] (Cologuard Orders Only) [address], [place], [address], 08/06/2024 17:35:10 11/14/20 24 09/29/2024 CT, head, w/o contr ast No observ ation record ed. [facility] [address] [facility] [address], [place], [address], 11/14/2024 18:08:19 Result Notes None recorded. Procedures Surgical History None recorded. Imaging Results Imaging Date Name Status LastModified by Organiz ation Details LastModified Time 09/29/2024 CT, head, w/o contrast [facility] [address] [facility] [address], [place], [address], 11/14/2024 18:08:19 Procedure Notes None recorded. Medical Equipment None Reported. Allergies Allergen ID Allergen Name Allergen Category Reaction Reaction Severity Criticality Documentation Date Start Date Code Code System Note Provider Name and Address Organization Details Recorded Time 086881 latex environme nt,medica tion Not available Not available Not available 01/30/2024 70677 91 RxNorm Not Available Not Available Not Available 837743 Product containin g penicilli n (product) medicatio n Not available Not available Not available 01/30/2024 40341 8001 SNOMED Not Available Not Available Not Available 170958 Product containin g cephalosp mariposa (product) medicatio n rash Not available low 01/30/2024 94619 9009 SNOMED Not Available Not Available Not Available 349949 vancomyci n medicatio n rash Not available low 01/30/2024 [id number] RxNorm Not Available Not Available Not Available Medications Name Sig Start Date Stop Date Status Note LastModified by Organization Details LastModified Time doxycycline hyclate 100 mg capsule TAKE 1 CAPSULE BY MOUTH TWICE DAILY FOR 7 DAYS 09/29 completed Not Available Not Available Not Available Apri 0.15 mg-0.03 mg tablet TAKE 1 TABLET BY MOUTH EVERY DAY CONTINUOU SLY, SKIP PLACEBO 01/29 completed Not Available Not Available Not Available sulfamethox azole 800 mg-trimetho prim 160 mg tablet TAKE 1 TABLET BY MOUTH EVERY 12 HOURS WITH MEALS active Not Available Not Available No t Available ketorolac 10 mg tablet Take 1 tablet every 6 hours by oral route with meal(s) for 5 days. active Not Available Not Available No t Available methylpredn isolone 4 mg tablets in a dose pack TAKE BY MOUTH DIRECTED ON INSIDE OF PACKAGE 09/29 completed Not Available Not Available Not Available drospirenon e 3 mg-ethinyl estradiol 0.03 mg tablet TAKE 1 TABLET BY MOUTH EVERY DAY. TAKE CONTINOUS LY AND SKIP PLACEBO TABLETS 09/29 completed Not Available Not Available Not Available Tri-Estaryl la (28) 0.18 mg(7)/0.215 mg(7)/0.25 mg(7)-35 mcg tablet active Not Available Not Available N ot Available Nextstellis 3 mg-14.2 mg (28) tablet TAKE 1 TABLET BY MOUTH ONCE A DAY 09/29 completed Not Available Not Available Not Available Vitals Date Recorded Body weight Heart rate Body mass index (BMI) Body height Respiratory rate Oxygen saturation Oxygen saturation in Arterial blood by Pulse oximetry Systolic blood pressure Diastolic blood pressure Provider Name and Address Organization Details Last Updated DateTime 4 93799.8 6 g 82 /min 22.5 kg/m2 157.48 cm 18 /min 99 % 99 % 101 mm[Hg] 69 mm[Hg] Faith Tsang MA [facility] 09:44:58 Date Recorded Systolic blood pressure Diastolic blood pressure Provider Name and Address Organization Details Last Updated DateTime 01/30/2024 100 mm[Hg] 70 mm[Hg] DESIREE Meehan Attn: Accounting,[address] [place], [address], [facility] 01/30/2024 10:06:44 Date Recorded Body height Body mass index (BMI) Body weight Respiratory rate Oxygen saturation Oxygen saturation in Arterial blood by Pulse oximetry Heart rate Systolic blood pressure Diastolic blood pressure Provider Name and Address Organization Details Last Updated DateTime 4 157.48 cm 21.8 kg/m2 15413.4 9 g 18 /min 100 % 100 % 75 /min 112 mm[Hg] 72 mm[Hg] Faith Tsang MA [facility] 15:26:17 Date Recorded Systolic blood pressure Diastolic blood pressure Provider Name and Address Organization Details Last Updated DateTime 09/29/2024 110 mm[Hg] 80 mm[Hg] DESIREE Meehan Attn: Accounting[address] [place], [address], [facility] 09/29/2024 15:46:09 Social History Question Answer Notes LastModified by Organizat ion Details LastModified Time Tobacco Smoking Status Never Smoker Faith Tsang MA null, [facility] 01/30/2024 09:43:56 What Is Your Level Of Alcohol Consumption? Occasional Information not available 01/30/2024 Are You Blind Or Do You Have Difficulty Seeing? Yes Glasses Information not available 01/30/2024 What Is Your Level Of Caffeine Consumption? Moderate Cup Of Cofee Everyday Information not available 01/30/2024 In The 14 Days Before Symptom Onset, Have You Had Close Contact With A Laboratory-confi rmed COVID-19 While That Case Was Ill? No Information not available 01/30/2024 In The 14 Days Before Symptom Onset, Have You Had Close Contact With A Person Who Is Under Investigation For COVID-19 While That Person Was Ill? No Information not available 01/30/2024 Have You Been To An Area Known To Be High Risk For COVID-19? No Information not available 01/30/2024 Are You Deaf Or Do You Have Serious Difficulty Hearing? No Information not available 01/30/2024 What Type Of Diet Are You Following? REGULAR Information not available 01/30/2024 Are There Any Guns Present In Your Home? No Information not available 01/30/2024 What Was The Date Of Your Most Recent Tobacco Screening? 09/29/2024 Information not available 09/29/2024 What Is Your Relationship Status? Other Information not available 09/29/2024 Do You Use Your Seat Belt Or Car Seat Routinely? Yes Information not available 01/30/2024 Do You Have Smoke And Carbon Monoxide Detectors In Your Home? Yes Information not available 01/30/2024 Do You Use Any Illicit Or Recreational Drugs? No Information not available 01/30/2024 Do You Use Sunscreen Routinely? Yes Information not available 01/30/2024 Has Tobacco Cessation Counseling Been Provided? No Information not available 09/29/2024 Do You Or Have You Ever Used Any Other Forms Of Tobacco Or Nicotine? No Information not available 01/30/2024 Sex: Female Functional Status Question Answer Note LastModified by Organizat ion Details LastModified Time Are you able to care for yourself? Yes Information not available 01/30/2024 What is your exercise level? Occasional Information not available 01/30/2024 Mental Status None recorded. Family History Relationship Description Onset Age of this Age Resolved Age Notes LastModified by Organization Details LastModified Time Father Heart disease [email or web address] Not available 2023 10:48:01 Medical History Condition Response Coronary Artery Disease N Other N High Blood Pressure N Atrial Fibrillation N Kidney or Bladder Problems N Thyroid Problems N GI Problems N Depression N COPD N Blood Clots N Skin Problems N Anemia N Heart Attack (TN) N Anxiety Disorder N Diabetes N Muscle, Joint, or Bone Problems N Seizures/Epilepsy N Acid Reflux (GERD) N Cancer N Stroke N Asthma N Allergies N High Cholesterol N Hepatitis N Liver Disease N Headaches N Heart Failure N Osteoporosis N Gynecological History Statement/Question Response Menses Monthly N Current Control Method Other Obstetrics History GPAL:G 4 P 4 0 0 4 Type Value Multiple Births 0 Full Term 4 Induced 0 Spontaneous 0 Premature 0 Living 4 Ectopics 0 Total 4 Immunizations Vaccine Type Date Status Note Provider Nam e and Address Organization Details Recorded Time Influenza, MDCK, quadrivalent, PF 09/03/2020 completed WILLIAM العراقي, [place] - [facility] 09/29/2024 15:05:28 COVID-19, mRNA, LNP-S, PF, 30 mcg/0.3 mL dose 12/04/2020 completed Faith Ts[place], [place] [facility] 09/29/2024 15:05:28 COVID-19, mRNA, LNP-S, PF, 30 mcg/0.3 mL dose 11/11/2020 completed Faith Ts[place] [facility] 09/29/2024 15:05:28 COVID-19, mRNA, LNP-S, PF, 30 mcg/0.3 mL dose, janae-sucrose 12/08/2021 completed WILLIAM العراقي, [place] [facility] 09/29/2024 15:05:28 Hep B, adult 04/10/2001 completed Faith Ts[place] [facility] 09/29/2024 15:05:28 Hep B, adult 04/24/2000 completed Faith Ts[place] [facility] 09/29/2024 15:05:28 Hep B, adult 06/14/2000 completed WILLIAM العراقي, [place] - [facility] 09/29/2024 15:05:28 Influenza, split virus, quadrivalent, PF 09/05/2021 completed [place] WILLIAM Tsang arnav, [place] [facility] 09/29/2024 15:05:28 Influenza, split virus, quadrivalent, PF 09/18/2019 completed Faith WILLIAM Tsang arnav, [place] [facility] 09/29/2024 15:05:28 Past Encounters Encounter ID Performer Location Encounter Start Date Encounter Closed Date Diagnosis/Indication Diagnosis SNOMED-CT Code Diagnosis ICD10 Code Diagnosis Note [id number] Faith Tsang MA [facility] [address] [place] [address] 01/30/2024 09:26:20 01/30/2024 12:59:09 Adult health examination 259597509 Z00.00 annual wellness completed Cholesterol screening 27 3109872 Z13.220 fasting lipids due Diabetes m ellitus screening 127484075 Z13.1 a1c screening due Degenerati on of cervical intervertebral disc 50724930 M50.30 stable Degenerati on of lumbar intervertebral disc 61612697 M51.36 stable Loss of hair 379481424 L 65.9 hair loss lab panel ordered. Long-term drug therapy 230537143 Z79.899 cbc and cmp due. Screening for malignant neoplasm of colon 123584870 Z12.11 pt opts for cologuard screening this year when she turns 44. [id number] [facility] [place] [address] [place] [address] 09/29/2024 14:55:30 09/29/2024 16:04:51 Contusion of head 315220800 S00.93XA Send for stat CT of the head without contrast to rule out any subdural or subarachno id after striking the head on the corner of wooden impregnating helper block kitchen island counter and having laceration . Headache 36233126 R51.9 As above Health Concerns Section Related Observation LastModified by Organization Detai ls LastModified Time None Recorded Concern Status LastModified by Organization Details LastModified Time None Recorded Advance Directives Directive None Recorded Payers Encounter Date Sequence Insurance Name Policy Number Policy Multani Covered Member ID Multani Member ID Guarantor Name 01/30/[address] [facility] [id number] Maggy Rodriguez [id number] Maggy Rodriguez 09/29/[address] [facility] [id number] Maggy Rodriguez [id number] Maggy Rodriguez Notes Date Note Type Note Provider Name and Address Organization Details Recorded Time 01/30/2024 text/html Generic HPI TemplateReported bypatient.Notes:annual well exam. Hx of DDD of neck and low back. stable. no acute c/o except increased hair loss. no fam hx of male pattern baldness or female hair loss. WILLIAM العراقي, [facility] 01/30/2024 10:48:32 09/29/2024 text/html Sunday afterno on patient was in her kitchen near her [place] kitchen island and she dropped her keys and bent down quickly to get it and unfortunately hit the sq corner of the [employer] [facility]. She has a contusion with laceration and was bleeding all over. She did not lose consciousness but she did see stars if you will and felt very lightheaded and nauseous. She did not have any vomiting. She does have residual headache that is constant. She has not had any vomiting but does continue to have nausea. DESIREE Meehan Attn: Accounting,[address] [facility], [place], [address], [facility] 09/29/2024 15:51:30 OBGyn Episode No OBEpisode recorded.
--- OUTSIDE RECORDS SUMMARY | 2025-01-13 07:27 | XMS_ITS | Clinical Summary ---
Author Organization [facility] [address] [facility] [address] Address [address] [place] [address] Care Team Providers Care Professor Of Floriculture Name Role Phone Samanta Alvarenga Primary Care Pr ovider Allergies Active Allergy Reactions Criticality Noted Date [...] 11/11/2024 Assessment & Plan (11/11/2024 10:43 AM BIG DATA ANALYTICS LEAD): Reticular veins of the posterior knee no significant varicosities, we discussed management of spider reticular veins would predominantly be sclerotherapy I have written a referral for Dr. Pantoja. Can follow up me as needed. Encounters Date Type Department Care Team Description 11/10/2024 1:15 PM BIG DATA ANALYTICS LEAD Office Visit [facility] Vascular and Vein Surgery [address] [place] [address] Francisco Mcelroy MD Varicose veins of lower extremity with inflammation, unspecified laterality from Last 3 Months Medical History Medical History Date Comments Arthritis Kidney stone Social History Tobacco Use Types Packs/Day Years Used Date Smoking Tobacco: Never Smokeless Tobacco: Never Tobacco Cessation:Counseling Given: Not Answered Comments Unknown Sex and Gender Information Value Date Recorded Sex Assigned at Not on file Legal Sex Female 9:55 AM BIG DATA ANALYTICS LEAD Gender Identity Not on file Sexual Orientation Not on file Obstetrics History Last Filed Vital Signs Vital Sign Reading Time Taken Comments Blood Pressure 123/82 11/10/2024 1:12 PM BIG DATA ANALYTICS LEAD Pulse 71 11/10/2024 1:12 PM BIG DATA ANALYTICS LEAD Temperature 36.8 C (98.2 F) 02/24/2024 3:32 PM CDT Respiratory Rate 20 02/24/2024 3:32 PM CDT Oxygen Saturation 100% 02/24/2024 3:32 PM CDT Inhaled Oxygen Concentration - - Weight 54.4 kg (120 lb) 11/10/2024 1:12 PM BIG DATA ANALYTICS LEAD Height 157.5 cm (5' 2 ) 11/10/2024 1:12 PM BIG DATA ANALYTICS LEAD Body Mass Index 21.95 11/10/2024 1:12 PM BIG DATA ANALYTICS LEAD Plan of Treatment Health Maintenance Due Date Last Done Comments Breast Cancer Screening-Mammogram 1979 Cervical Cancer Screening 1979 Colon Cancer Screening-Colonoscopy 1979 Depression Screening 1979 Hepatitis C Screening 1979 DTaP/Tdap/Td Vaccine (1 - Tdap) 1990 Regular Well Visit/Exam 18-64 1997 Covid-19 Vaccine (3 - season) 2024 12/04/2020, 11/11/2020 Influenza Vaccine Completed 07/25/2024, , 09/15/2022, Additional history exists HPV Vaccines Aged Out No longer eligi ble based on patient's age to complete this topic Pneumococcal vaccine <65 Aged Out No longer eligible based on patient's age to complete this topic Insurance [facility] CHO[facility] PLUS [facility] CHOICE PLUS Care Teams Professor Of Floriculture Relationship Specialty Start Date End Date Samanta Alvarenga PA PCP - General Physician Documentation Designer 10/25/18
--- OUTSIDE RECORDS SUMMARY | 2025-01-13 07:27 | XMS_ITS | Clinical Summary ---
Author Organization [facility] [employer] Address [address] [facility] [place] [address] Care Team Providers Care Cap Blocker Name Role Phone Samanta Pace Primary Care Pr ovider Source Comments [facility],non-owned Affiliates and Associated Physician Practices is amultiple site organization consisting of ambulatory clinics and hospital sitesin [place], [place], [place] and [place]. This disclosure is being madepursuant to the Care Everywhere program and may not contain all information available regarding this patient. Last updated 18.[facility] [employer] Allergies Active Allergy Reactions Criticality Noted Date [...] sublingual tablet Active trimethoprim-luigi ymyxin B (POLYTRIM) 83918-9.1 UNIT/ML-% ophthalmic solution polymyxin B sulfate 10,000 [...] of the day. 30 capsule 04/05/2022 Active Family History Medical History Relation Name Comments CAD (Coronary Artery Disease) Father Relation Name Status Comments Father Social History Tobacco Use [...] 04/05/2022 10:19 AM CDT Plan of Treatment Health Maintenance Due Date Last Done Comments COLOGUARD (AGES 45-75) - COLON CA SCREENING 1979 COLON MONITORING 1979 COLONOSCOPY - COLON CA SCREENING 1979 CT COLONOGRAPHY - COLON CA SCREENING 1979 Colorectal Cancer Screening 1979 FIT - COLON CA SCREENING 1979 FLEX SIG - COLON CA SCREENING 1979 LIPID TESTING 1979 MAMMOGRAM 1979 PAP SMEAR 1979 HIV SCREENING 1994 HEPATITIS C SCREENING 06/27/1997 DTAP/TDAP/TD VACCINES (1 - Tdap) 1998 HEPATITIS B VACCINE (1 of 3 - 19+ 3-dose series) 1998 COVID-19 VACCINE (3 - 2023- season) 2024 12/04/2020, 11/11/2020 INFLUENZA VACCINE (#1) 2024 , 09/18/2019, 09/13/2018, Additional history exists DEPRESSION SCREENING 11/26/2024 ZOSTER VACCINE (1 of 2) 2029 HIB VACCINE Aged Out No longer eligi ble based on patient's age to complete this topic HPV VACCINE Aged Out No longer eligi ble based on patient's age to complete this topic MENINGOCOCCAL (Group B) VACCINE Aged Out No longer eligible based on patient's age to complete this topic MENINGOCOCCAL VACCINE Aged Out No josue darrick eligible based on patient's age to complete this topic PNEUMOCOCCAL VACCINE Aged Out No long er eligible based on patient's age to complete this topic Care Teams Cap Blocker Relationship Specialty Start Date End Date Samanta Pace PA [address] [place] [address] PCP - General 04/02/22
== END 2025-01-13 07:22 | disposition home or self-care (01) ==
PROVIDERS: PCP Physician Assistant; Visit Provider Obstetrics & Gynecology
DX: Z12.31 Encounter for screening mammogram for malignant neoplasm of breast (principal); R92.8 Other abnormal and inconclusive findings on diagnostic imaging of breast
CPT/HCPCS: 77063; 77067

== ENCOUNTER 2025-01-28 12:24 | Outpatient (CLI) | payer OTHER, SELFPAY ==
--- NOTE | ~2025-01-28 | MM_ITS ---
EXAMINATION: MM diagnostic ed BI w jeffrey HISTORY: Bilateral breast asymmetry TECHNIQUE: Additional 3-D tomosynthesis images of the breasts were performed and synthetic 2-D images were generated. CAD analysis was submitted and interpreted. COMPARISON: 01/13/2025 BREAST PARENCHYMAL COMPOSITION:Dense: The breasts are heterogeneously dense, which may obscure small masses. FINDINGS: Bilateral asymmetries demonstrate effacement with spot compression. No definite persistent mass lesion or distortion seen. No suspicious microcalcification. IMPRESSION: No mammographic evidence for malignancy. BI-RADS Category 1: Negative Reviewed, dictated and finalized at location . OPERATIONS ADVISOR
--- OUTSIDE RECORDS SUMMARY | 2025-01-28 13:46 | XMS_ITS | Referral Summary ---
Author Organization [facility] [address] [facility] [address] Address [address] [place] [address] Care Team Providers Care Venture Capitalist Name Role Phone Samanta Alvarenga Primary Care Pr ovider Encounters Date Type Department Care Team Description 11/10/2024 1:15 PM PACKAGE SEALER MACHINE Office Visit [facility] Vascular and Vein Surgery [address] [place] [address] [place] [address] Francisco Mcelroy MD Varicose veins of [...] 11/11/2024 Assessment & Plan (11/11/2024 10:43 AM PACKAGE SEALER MACHINE): Reticular veins of the posterior knee no [...] on file Legal Sex Female 9:55 AM PACKAGE SEALER MACHINE Gender Identity Not on file Sexual Orientation Not on file Last Filed Vital Signs Vital Sign Reading Time Taken Comments Blood Pressure 123/82 11/10/2024 1:12 PM PACKAGE SEALER MACHINE Pulse 71 11/10/2024 1:12 PM PACKAGE SEALER MACHINE Temperature 36.8 C (98.2 F) 02/24/2024 3:32 PM CDT Respiratory Rate 20 02/24/2024 3:32 PM CDT Oxygen Saturation 100% 02/24/2024 3:32 PM CDT Inhaled Oxygen Concentration - - Weight 54.4 kg (120 lb) 11/10/2024 1:12 PM PACKAGE SEALER MACHINE Height 157.5 cm (5' 2 ) 11/10/2024 1:12 PM PACKAGE SEALER MACHINE Body Mass Index 21.95 11/10/2024 1:12 PM PACKAGE SEALER MACHINE Plan of Treatment Not on file Insurance [facility] H[facility]PPO Address: [address] [place] [address] [facility] HMO/PPO Address: [address] [place] [address] Care Teams Venture Capitalist Relationship Specialty Start Date End Date Samanta Alvarenga PA PCP - General Physician Machine Presser 10/25/18
--- OUTSIDE RECORDS SUMMARY | 2025-01-28 13:46 | XMS_ITS | Encounter Summary ---
Author Organization [facility] Address [address] [place] [address] Care Team Providers Care Urgent Care Physician Assistant Name Role Phone Munira Lopez MD Primary Care Provider [phone] Samanta Pace Primary Care Pr ovider Encounter Details Date Type Department Care Team (Late st Contact Info) Description 10/27/2021 Lab Requisition [facility] Care DermPath Lab [address] [facility], [place] [id number] Katy Augustine MD [address] [facility] 3 [place] [address] Social History Tobacco Use Types Packs/Day Years [...] Comments DERMATOPATHOLOGY Routine 10/26/2021 12:0 0 AM SERVICE ADVISOR documented in this encounter Results * DERMATOPATHOLOGY (10/26/2021 12:00 AM SERVICE ADVISOR) Case Report Dermatopathology Report Case: [id number] Authorizing Provider: Katy Augustine MD Collected: 10/26/2021 12:00 AM Ordering Location: [facility] Derm[facility] Lab Received: 10/27/2021 08:02 AM Pathologist: Starla Ace MD Specimen: Skin, left lower leg 1:15 PM SERVICE ADVISOR DERMATOPATHOLOGY LABORATORY Final Diagnosis Specimen A. SKIN, left lower leg: DERMATOFIBROMA (D23.9) 1:15 PM SERVICE ADVISOR DERMATOPATHOLOGY LABORATORY Clinical History Ridgemark papule DF R/O BCC. 1:15 PM SERVICE ADVISOR DERMATOPATHOLOGY LABORATORY Gross Description Specimen A: Received is one formalin filled container labeled with the patient's name and designated left lower leg. The specimen consists of a shave measuring [id number]. Jar 0. 1:15 PM SERVICE ADVISOR DERMATOPATHOLOGY LABORATORY Microscopic Description Specimen A. SKIN, left lower leg: There is epidermal hyperplasia. Within the dermis, there are fibrohistiocytic cells in haphazard array among coarse collagen bundles. 1:15 PM SERVICE ADVISOR DERMATOPATHOLOGY LABORATORY Disclaimer An external and internal positive and negative controls are appropriate for the histochemical, immunohistochemical and immunofluorescence stain(s) in this case (if any), except where stated explicitly. The performance characteristics of the stain(s) cited in this report were developed and its performance characteristic determined by the Dermatopathology Laboratory at [facility], directed by Dr. Jori Zhang. These tests need not be, and therefore are not, approved by the [place] Food and Drug Administration. The tests are used for clinical purposes. Billing Codes Specimen Charges Stain Charges 07058 1 1:15 PM SERVICE ADVISOR DERMATOPATHOLOGY LABORATORY Embedded Images 1:15 PM SERVICE ADVISOR DERMATOPATHOLOGY LABORATORY Pathology/Cytolog y TISSUE SPECIMEN FROM SKIN / Unknown 10/26/2021 10/27/2021 8:02 AM SERVICE ADVISOR Katy Augustine MD LAB - PATHOLOGY/CYTO LOGY ORDERABLES DERMATOPATHOLOGY LABORATORY [facility] - Department of Dermat[facility] [address] [facility], [address] [phone] documented in this encounter Visit Diagnoses Not on filedocumented in this encounter Care Teams Urgent Care Physician Assistant Relationship Specialty Start Date End Date Munira Lopez MD [address] [place] [id number] PCP - General 07/01/21 04/01/22 Samanta Pace PA [address] [place] [address] PCP - General 04/02/22 documented as of this encounter
--- OUTSIDE RECORDS SUMMARY | 2025-01-28 13:46 | XMS_ITS | Patient Health Summary ---
Author Organization [facility] Address [address] [place] [address] Care Team Providers Care Linen Sorter Name Role Phone Samanta Pace Primary Care Pr ovider Note from [facility],non-owned Affiliates and Associated Physician Practices is amultiple site organization consisting of ambulatory clinics and hospital sitesin [place], [place], [place] and [place]. This disclosure is being madepursuant to the Care Everywhere program and may not contain all information available regarding this patient. Last updated 18.[facility] Allergies * Cephalexin(Urticaria) -Medium Criticality * Latex(Rash) [...] mg sublingual tablet * trimethoprim-polymyxin B (POLYTRIM) 50152-1.1 UNIT/ML-% ophthalmic solution polymyxin B sulfate 10,000 [...] etiology Results * DERMATOPATHOLOGY (10/26/2021 12:00 AM PCA) Case Report Dermatopathology Report Case: [id number] Authorizing Provider: Katy Augustine MD Collected: 10/26/2021 12:00 AM Ordering Location: [facility] Lab Received: 10/27/2021 08:02 AM Pathologist: Starla Ace MD Specimen: Skin, left lower leg 1:15 PM [facility] DERMATOPATHOLOGY LABORATORY Final Diagnosis Specimen A. SKIN, left lower leg: DERMATOFIBROMA (D23.9) 1:15 PM [facility] DERMATOPATHOLOGY LABORATORY Clinical History Waterflow papule DF R/O BCC. 1:15 PM [facility] DERMATOPATHOLOGY LABORATORY Gross Description Specimen A: Received is one formalin filled container labeled with the patient's name and designated left lower leg. The specimen consists of a shave measuring [id number]. Jar 0. 1 1:15 PM [facility] DERMATOPATHOLOGY LABORATORY Microscopic Description Specimen A. SKIN, left lower leg: There is epidermal hyperplasia. Within the dermis, there are fibrohistiocytic cells in haphazard array among coarse collagen bundles. 1 1:15 PM [facility] DERMATOPATHOLOGY LABORATORY Disclaimer An external and internal positive and negative controls are appropriate for the histochemical, immunohistochemical and immunofluorescence stain(s) in this case (if any), except where stated explicitly. The performance characteristics of the stain(s) cited in this report were developed and its performance characteristic determined by the Dermatopathology Laboratory at [facility], directed by Dr. Jori Zhang. These tests need not be, and therefore are not, approved by the [place] Food and Drug Administration. The tests are used for clinical purposes. Billing Codes Specimen Charges Stain Charges 45070 1 1 1:15 PM [facility] DERMATOPATHOLOGY LABORATORY Embedded Images 1 1:15 PM [facility] DERMATOPATHOLOGY LABORATORY Pathology/Cytolog y TISSUE SPECIMEN FROM SKIN / Unknown 10/26/2021 10/27/2021 8:02 AM PCA Katy Augustine MD LAB - PATHOLOGY/CYTO LOGY ORDERABLES DERMATOPATHOLOGY LABORATORY [facility] Department of Dermatology [address], [address] [phone] * [facility] Throat Culture (08/16/2018 2:21 PM CDT) Culture [facility] Comment: CULTURE, THROAT MICRO NUMBER: [id number] TEST STATUS: FINAL SPECIMEN SOURCE: THROAT SPECIMEN QUALITY: ADEQUATE RESULT: No oropharyngeal pathogens recovered. Test Performed at: [facility] [phone] JAGUAR TOLEDO MD Microbiology ENTIRE THROAT (SURFACE REGION OF NECK) / Unknown 08/16/2018 2:21 PM CDT 08/17/2018 2:12 AM CDT Naomi Sanchezwer MD PEDIATRIC ALLERGIST-EXPERIMENTAL PSYCHOLOGIST LAB - MICROBIOLOG Y ORDERABLES [facility] [address] [place] [address] * STREP A SCREEN - POINT OF CARE (AMB) STL (08/16/2018) Only the most recent of2 resultswithin the time period is included. Strep A Rapid POCT Negative Negative Strep A Internal Control Present Lot # [id number] Expiration Date 02/05/20 Throat ENTIRE THROAT (SURFACE REGION OF NECK) / Unknown 08/16/2018 Naomi M Bebo DE SANTIAGO-EXPERIMENTAL PSYCHOLOGIST LAB - POINT OF CA RE ORDERABLES Care Teams Linen Sorter Relationship Specialty Start Date End Date Samanta Pace PA [address] [place] [address] PCP - General 04/02/22
--- OUTSIDE RECORDS SUMMARY | 2025-01-28 13:46 | XMS_ITS | Data Portability ---
Author Organization [facility], Main Office Address [address] [place] [address] Assessment No assessment recorded. Plan of Treatment Reminders Order Date Submit Date Provider Last Modified By Organization Details Last Modified Time Details Appointments None recorded. Lab None recorded. Referral pain management referral 2022 023 elizabeth Bear MD, 3 [facility] [address], [place], [address], 4 09:39:58 pain management referral 2022 023 MATTEO Bear MD, 3 [facility] [address], [place], [address], 3 16:32:29 Procedures None recorded. Surgeries None recorded. Imaging US, buttock 2022 023 [email or web address] [facility], [address] Sly [address]eder, [facility] [address], [place], [address], 4 09:40:03 Medication Orders Kenalog 40 mg/mL suspension for injection 2022 023 [email or web address] [facility], [address] [place] [address] Skinny Schroeder, [place], [id number], 3 13:12:02 Patient TargetsNo targets recorded. Patient [...] pg/mL will have sympt oms. Not Available [facility] [address] [place] [address], [address], 08/25/2022 12:25:53 08/24/20 22 08/25/2022 VITAM IN B12/F OLATE , SERUM PANEL folate, serum 20.4 NG/mL normal Refer ence Range Low: <3.4 Borde rline : 3.4-5 .4 Laurence l: >5.4 Not Available [facility] [address], [address], 08/25/2022 12:25:53 08/24/20 22 08/25/2022 CBC (INCL UDES DIFF/ PLT) white blood cell count 6.1 thous and/u L 3.8-10 .8 normal Not Available [facility] [address] [place], [address], 08/25/2022 12:25:52 08/24/20 22 08/25/2022 CBC (INCL UDES DIFF/ PLT) red blood cell count 4.35 lluvia on/uL 3.80-5 .10 normal Not Available [address], [address], 08/25/2022 12:25:52 08/24/20 22 08/25/2022 CBC (INCL UDES DIFF/ PLT) hemoglobin 13.4 g/dL 11.7-1 5.5 normal Not Available [address], [address], 08/25/2022 12:25:52 08/24/20 22 08/25/2022 CBC (INCL UDES DIFF/ PLT) hematocrit 41.5 % 35.0-4 5.0 normal Not Available [address], [address], 08/25/2022 12:25:52 08/24/20 22 08/25/2022 CBC (INCL UDES DIFF/ PLT) MCV 95.4 fL 80.0-1 00.0 normal Not Available [address], [address], 08/25/2022 12:25:52 08/24/20 22 08/25/2022 CBC (INCL UDES DIFF/ PLT) MCH 30.8 pg 27.0-3 3.0 normal Not Available [address], [address], 08/25/2022 12:25:52 08/24/20 22 08/25/2022 CBC (INCL UDES DIFF/ PLT) MCHC 32.3 g/dL 32.0-3 6.0 normal Not Available [address], [address], 08/25/2022 12:25:52 08/24/20 22 08/25/2022 CBC (INCL UDES DIFF/ PLT) RDW 11.9 % 11.0-1 5.0 normal Not Available [address], [address], 08/25/2022 12:25:52 08/24/20 22 08/25/2022 CBC (INCL UDES DIFF/ PLT) platelet count 287 thous and/u L 140-40 0 normal Not Available [address], [address], 08/25/2022 12:25:52 08/24/20 22 08/25/2022 CBC (INCL UDES DIFF/ PLT) MPV 10.7 fL 7.5-12 .5 normal Not Available [address], [address], 08/25/2022 12:25:52 08/24/20 22 08/25/2022 CBC (INCL UDES DIFF/ PLT) absolute neutrophils 3947 cells /uL 1500-7 800 normal Not Available [address], [address], 08/25/2022 12:25:52 08/24/20 22 08/25/2022 CBC (INCL UDES DIFF/ PLT) absolute lymphocytes 1476 cells /uL 850-39 00 normal Not Available [address], [address], 08/25/2022 12:25:52 08/24/20 22 08/25/2022 CBC (INCL UDES DIFF/ PLT) absolute monocytes 519 cells /uL 200-95 0 normal Not Available [address], [address], 08/25/2022 12:25:52 08/24/20 22 08/25/2022 CBC (INCL UDES DIFF/ PLT) absolute eosinophils 110 cells /uL 15-500 normal Not Available [address], [address], 08/25/2022 12:25:52 08/24/20 22 08/25/2022 CBC (INCL UDES DIFF/ PLT) absolute basophils 49 cells /uL 0-200 normal Not Available [address], [place], [address], 08/25/2022 12:25:52 08/24/20 22 08/25/2022 CBC (INCL UDES DIFF/ PLT) neutrophils 64.7 % normal Not Available [facility] [address], [address], 08/25/2022 12:25:52 08/24/20 22 08/25/2022 CBC (INCL UDES DIFF/ PLT) lymphocytes 24.2 % normal Not Available [facility] [address], [address], 08/25/2022 12:25:52 08/24/20 22 08/25/2022 CBC (INCL UDES DIFF/ PLT) monocytes 8.5 % normal Not Available [facility] [address], [address], 08/25/2022 12:25:52 08/24/20 22 08/25/2022 CBC (INCL UDES DIFF/ PLT) eosinophils 1.8 % normal Not Available [facility] [address], [address], 08/25/2022 12:25:52 08/24/20 22 08/25/2022 CBC (INCL UDES DIFF/ PLT) basophils 0.8 % normal Not Available [facility] [address], [address], 08/25/2022 12:25:52 08/24/20 22 08/25/2022 COMPR EHENS SVETLANA METAB OLIC PANEL glucose 99 mg/dL 65-99 normal Fasti ng refer ence inter jose eduardo Not Available [address], [address], 08/25/2022 12:25:52 08/24/20 22 08/25/2022 COMPR EHENS SVETLANA METAB OLIC PANEL urea nitrogen (BUN) 9 mg/dL 7-25 normal Not Available [facility] [address], [address], 08/25/2022 12:25:52 08/24/20 22 08/25/2022 COMPR EHENS SVETLANA METAB OLIC PANEL creatinine 0.74 mg/dL 0.50-0 .99 normal Not Available [address], [address], 08/25/2022 12:25:52 08/24/20 22 08/25/2022 COMPR EHENS [...] kdoqi /gfr% 5Fcal culat or Not Available [address], [address], 08/25/2022 12:25:52 08/24/20 22 08/25/2022 COMPR EHENS SVETLANA METAB OLIC PANEL BUN/creatini ne ratio not applic able (calc ) 6-22 Not Available [address], [address], 08/25/2022 12:25:52 08/24/20 22 08/25/2022 COMPR EHENS SVETLANA METAB OLIC PANEL sodium 137 mmol/ L 135-14 6 normal Not Available [address], [address], 08/25/2022 12:25:52 08/24/20 22 08/25/2022 COMPR EHENS SVETLANA METAB OLIC PANEL potassium 4.3 mmol/ L 3.5-5. 3 normal Not Available [address], [address], 08/25/2022 12:25:52 08/24/20 22 08/25/2022 COMPR EHENS SVETLANA METAB OLIC PANEL chloride 103 mmol/ L 98-110 normal Not Available [address], [address], 08/25/2022 12:25:52 08/24/20 22 08/25/2022 COMPR EHENS SVETLANA METAB OLIC PANEL carbon dioxide 27 mmol/ L 20-32 normal Not Available [address], [address], 08/25/2022 12:25:52 08/24/20 22 08/25/2022 COMPR EHENS SVETLANA METAB OLIC PANEL calcium 9.5 mg/dL 8.6-10 .2 normal Not Available [address], [address], 08/25/2022 12:25:52 08/24/20 22 08/25/2022 COMPR EHENS SVETLANA METAB OLIC PANEL protein, total 6.7 g/dL 6.1-8. 1 normal Not Available [address], [address], 08/25/2022 12:25:52 08/24/20 22 08/25/2022 COMPR EHENS SVETLANA METAB OLIC PANEL albumin 4.1 g/dL 3.6-5. 1 normal Not Available [address], [address], 08/25/2022 12:25:52 08/24/20 22 08/25/2022 COMPR EHENS SVETLANA METAB OLIC PANEL globulin 2.6 g/dL_ (calc ) 1.9-3. 7 normal Not Available [address], [address], 08/25/2022 12:25:52 08/24/20 22 08/25/2022 COMPR EHENS SVETLANA METAB OLIC PANEL albumin/glob ulin ratio 1.6 (calc ) 1.0-2. 5 normal Not Available [facility] [place] [address] [address], [place], [address], 08/25/2022 12:25:52 08/24/20 22 08/25/2022 COMPR EHENS SVETLANA METAB OLIC PANEL bilirubin, total 0.6 mg/dL 0.2-1. 2 normal Not Available [address], [address], 08/25/2022 12:25:52 08/24/20 22 08/25/2022 COMPR EHENS SVETLANA METAB OLIC PANEL alkaline phosphatase 69 U/L 31-125 normal Not Available [facility] [address], [address], 08/25/2022 12:25:52 08/24/20 22 08/25/2022 COMPR EHENS SVETLANA METAB OLIC PANEL AST 13 U/L 10-30 normal Not Available [address], [address], 08/25/2022 12:25:52 08/24/20 22 08/25/2022 COMPR EHENS SVETLANA METAB OLIC PANEL ALT 8 U/L 6-29 normal Not Available [address], [address], 08/25/2022 12:25:52 08/24/20 22 08/25/2022 TSH+F REE T4 TSH 1.14 mIU/L normal Refer ence Range > or = 20 Years 0.40- 4.50 Pregn ilsa Range s First trime ster 0.26- 2.66 Secon d trime ster 0.55- 2.73 Third trime ster 0.43- 2.91 Not Available [address], [address], 08/25/2022 12:25:51 08/24/20 22 08/25/2022 TSH+F REE T4 T4, free 1.1 NG/dL 0.8-1. 8 normal Not Available [address], [address], 08/25/2022 12:25:51 08/24/20 22 08/25/2022 IRON, TIBC AND MINA TIN PANEL iron, total 196 mcg/d L 40-190 high Not Available [address], [address], 08/25/2022 12:25:50 08/24/20 22 08/25/2022 IRON, TIBC AND MINA TIN PANEL iron binding capacity 439 mcg/d L_(ca lc) 250-45 0 normal Not Available [address], [address], 08/25/2022 12:25:50 08/24/20 22 08/25/2022 IRON, TIBC AND MINA TIN PANEL % saturation 45 %_(ca lc) 16-45 normal Not Available [address], [address], 08/25/2022 12:25:50 08/24/20 22 08/25/2022 IRON, TIBC AND MINA TIN PANEL ferritin 12 NG/mL 16-232 low Not Available [address], [address], 08/25/2022 12:25:50 09/08/20 22 09/07/2022 XR, hip + pelvi s, unila teral , 2 or 3 view No observ ation record ed. [id number] [facility] (Imaging) [address], [place], [address], 01/24/2023 17:16:26 01/15/20 23 01/12/2023 RF, upper gastr ointe keagan l tract , w/ contr ast PO No observ ation record ed. [email or web address] [facility] [address], [place], [address], 02/05/2023 10:01:26 01/15/20 23 01/12/2023 US, abdom en No observ ation record ed. [email or web address] [facility] [address], [place], [address], 02/05/2023 10:01:27 02/14/20 23 02/12/2023 upper endos copy proce dure (EGD) (PROC ) No observ ation record ed. [email or web address] Not Available 2022 14:21:08 08/24/20 23 08/24/2023 MRI, cervi lashonda spine , w/o contr ast No observ ation record ed. [facility] [place] [address] Imaging [address], [place], [address], 11/27/2023 17:37:36 Result Notes None recorded. Problems Name Problem SNOMED Code Status Onset Date Resolution Date Notes Provider Name and Address Organization Details Recorded Time Dysfunctio n of left eustachian tube 0596688933218 106 Active 2021 Not Available [facility] 3 17:14:33 Injury of ankle 888675083 Active Not Available [facility] 3 17:14:33 Lumbar radiculopa thy 563829837 Active 2021 Not Available [facility] 3 17:14:33 Cellulitis of knee 66463786 Active Not Available [facility] 3 17:14:33 Indigestio n 571057651 Active Not Available [facility] 3 17:14:33 Generalize d headache 520785957 Active Not Available [facility] 3 17:14:34 Insomnia 235119686 Active Not Available [facility] 3 17:14:34 Lumbago with sciatica 843082611 Active 2021 Not Available [facility] 3 17:14:34 Abdominal pain 13555465 Active 2022 Not Available [facility] 3 17:14:34 Sore throat 080937890 Active Not Available [facility] 3 17:14:34 Malaise and fatigue 108995972 Active 2021 Not Available [facility] 3 17:14:34 Acute low back pain 752933963 Active 2021 Not Available [facility] 3 17:14:34 Pain of left hip joint 1343871447836 00 Active 2021 Not Available [facility] 3 17:14:34 Acute pharyngiti s 433348702 Active Not Available [facility] 3 17:14:35 Major depressive disorder 512409258 Active 2021 Not Available [facility] 3 17:14:35 Fever 893404121 Active Not Available [facility] 3 17:14:35 Cervical spondylosi s 892637295 Active Not Available [facility] 3 17:14:35 Cervical arthritis 426439630 Active Not Available [facility] 3 17:14:35 Paronychia of toe 463712271 Active Not Available [facility] 3 17:14:35 Vertigo 405632782 Active 2021 Not Available [facility] 3 17:14:35 Nausea 344178884 Active 2022 Not Available [facility] 3 17:14:36 Dyssomnia 39371620 Active 2021 Not Available [facility] 3 17:14:36 Viral syndrome 542126552 Active Not Available [facility] 3 17:14:36 Change in stool caliber 26069794 Active Not Available [facility] 3 17:14:36 Muscle strain 43179452 Active Not Available [facility] 3 17:14:36 Charleyhor se 24090919 Active Not Available [facility] 3 17:14:36 Joint pain 30036504 Active Not Available [facility] 3 17:14:37 Degenerati on of cervical interverte bral disc 35439871 Active 2021 Not Available [facility] 3 17:14:37 Incontinen ce of feces 96978779 Active 2021 Not Available [facility] 3 17:14:37 Epigastric pain 52427451 Active Not Available [facility] 3 17:14:37 Perineural cyst 44072851 Active 2021 Not Available [facility] 3 17:14:37 Neck pain 82782238 Active 2021 Not Available [facility] 3 17:14:37 Upper abdominal pain 45632832 Active 2022 Not Available [facility] 3 17:14:38 Fatigue 69022989 Active Not Available [facility] 3 17:14:38 Mixed anxiety and depressive disorder 187004948 Active 2022 ELISE Cummings null, [place] [facility] 3 14:37:25 Pain in sacrum 6057961699 Active 2022 DESIREE Meehan [address] [facility], [place] [address], [place], [address] , [employer] 3 11:35:05 Mass of buttock Active 2022 DESIREE Meehan [address] [facility], [facility] [address], [place], [address] , [employer] [facility] 3 11:37:23 Problem Notes None recorded. Procedures Surgical History Date Name Laterality Status Provider Name and Address Organization Details Recorded Time 07/03/2022 other completed Not Available [facility] 01/24/2023 17:13:07 07/17/2017 other completed Not Available [facility] 01/24/2023 17:13:07 other completed Not Available [facility] 11/2022 17:13:07 other completed Not Available [facility] 11/2022 17:13:07 other completed Not Available [facility] 11/2022 17:13:07 other completed Not Available [facility] 11/2022 17:13:07 Imaging Results Imaging Date Name Status LastModified by Organization Details LastModified Time 01/12/2023 RF, upper gastrointestinal tract, w/ contrast PO completed [email or web address] [facility] [address], [place], [address], 02/05/2023 10:01:26 01/12/2023 US, abdomen completed [email or web address] [facility] [address] [place] [address] [address], [place], [address], 02/05/2023 10:01:27 09/07/2022 XR, hip + pelvis, unilateral, 2 or 3 view completed [id number] [facility] (Imaging) [address] [facility] [address], [place], [address], 01/24/2023 17:16:26 02/12/2023 upper endoscopy procedure (EGD) (PROC) [facility] not available 2023 14:21:08 08/24/2023 MRI, cervical spine, w/o contrast completed [email or web address] [facility] [address], [place], [address], 11/27/2023 17:37:36 Procedure Notes None recorded. Medical Equipment None Reported. Allergies Allergen ID Allergen Name Allergen Category Reaction Reaction Severity Criticality Documentation Date Start Date Code Code System Note Provider Name and Address Organization Details Recorded Time 04372 vancomyci n medicatio n itching severe Not available 01/24/2023 47256 RxNorm also skin turns red Not Available [facility] 17:16:22 97624 Product containin g penicilli n (product) medicatio n hives Not available Not available 01/24/2023 92481 8001 SNOMED Not Available [facility] 3 17:16:23 71518 latex environme nt,medica tion rash Not available Not available 01/24/2023 15603 91 RxNorm Not Available [facility] 17:16:23 36910 Keflex medicatio n hives Not available Not available 01/24/2023 25536 7 RxNorm Not Available [facility] 17:16:23 Medications Name Sig Start Date [...] mL by injectio n route. 2022 active [facility]#[phone] [phone] Not Available Not Available Not Available [...] Date Recorded Body mass index (BMI) Body height Body temperature Body weight Provider Name and Address Organization Details Last Updated DateTime 09/18/2022 22.9 kg/m2 157.48 cm 97.5 [degF] 61462.05 g Not Available [facility] 01/24/2023 17:13:41 Date Recorded Body mass index (BMI) Body height Body temperature Body weight Provider Name and Address Organization Details Last Updated DateTime 11/07/2022 23 kg/m2 157.48 cm 97.8 [degF] 06012.64 g Not Available [facility] 01/24/2023 17:13:41 Date Recorded Body mass index (BMI) Body height Oxygen saturation Oxygen saturation in Arterial blood by Pulse oximetry Heart rate Body temperature Body weight Systolic blood pressure Diastolic blood pressure Provider Name and Address Organization Details Last Updated DateTime 3 23 kg/m2 157.48 cm 98 % 98 % 76 /min 98.1 [degF] 03467.6 4 g 112 mm[Hg] 70 mm[Hg] Not Available [facility] 17:13:30 Date Recorded Body height Body temperature Body mass index (BMI) Body weight Respiratory rate Oxygen saturation Oxygen saturation in Arterial blood by Pulse oximetry Heart rate Systolic blood pressure Diastolic blood pressure Provider Name and Address Organization Details Last Updated DateTime 3 157.48 cm 97.5 [degF] 23.6 kg/m2 30322.4 2 g 16 /min 97 % 97 % 78 /min 122 mm[Hg] 80 mm[Hg] ELISE Cummings [place] [facility] [employer] [facility] 3 09:58:48 Date Recorded Systolic blood pressure Diastolic blood pressure Provider Name and Address Organization Details Last Updated DateTime 02/05/2023 100 mm[Hg] 72 mm[Hg] DESIREE Meehan [address] [place] [address], [facility] [address], [place], [address], [place] [facility] [employer] [facility] 02/05/2023 10:20:38 Date Recorded Body height Body temperature Body mass index (BMI) Body weight Respiratory rate Oxygen saturation Oxygen saturation in Arterial blood by Pulse oximetry Heart rate Systolic blood pressure Diastolic blood pressure Provider Name and Address Organization Details Last Updated DateTime 3 157.48 cm 97.4 [degF] 22.9 kg/m2 61393.0 5 g 16 /min 98 % 98 % 80 /min 102 mm[Hg] 60 mm[Hg] ELISE Cummings [place] - [facility] 3 11:00:56 Social History Question Answer Notes LastModified by Organizat ion Details LastModified Time Tobacco Smoking Status Never Smoker Not Available [facility] 01/24/2023 17:12:59 What Is Your Level Of Alcohol Consumption? Occasional [id number] Information not available 01/24/2023 What Is Your Level Of Caffeine Consumption? None [id number] Information not available 01/24/2023 How Much Tobacco Do You Chew? None [id number].[id number] Information not available 01/24/2023 In The 14 Days Before Symptom Onset, Have You Had Close Contact With A Laboratory-confir med COVID-19 While That Case Was Ill? No [id number] Information not available 01/24/2023 In The 14 Days Before Symptom Onset, Have You Had Close Contact With A Person Who Is Under Investigation For COVID-19 While That Person Was Ill? No [id number] [id number] Information not available 01/24/2023 Are You Currently Employed? Yes [email or web address] Information not available 02/02/2023 What Type Of Diet Are You Following? REGULAR MIGRATION.[id number] [id number] Information not available 01/24/2023 Which Illicit Or Recreational Drugs Have You Used? None MIGRATION.754954 2826 Information not available 01/24/2023 Do You Or Have You Ever Used E-cigarettes Or Vape? Never Used Electronic Cigarettes [id number] Information not available 01/24/2023 What Is Your Occupation? Registered Nurses MIGRATION.387801 8981 Information not available 01/24/2023 Have There Been Any Changes To Your Family Or Social Situation? No MIGRATION.673736 3392 Information not available 01/24/2023 Do You Use Insect Repellent Routinely? No MIGRATION.900556 5880 Information not available 01/24/2023 What Is Your Relationship Status? MIGRATION.[id number] Information not available 01/24/2023 Do You Use Your Seat Belt Or Car Seat Routinely? Yes MIGRATION.065226 1012 Information not available 01/24/2023 Do You Have Smoke And Carbon Monoxide Detectors In Your Home? Yes MIGRATION.158592 6930 Information not available 01/24/2023 Do You Or Have You Ever Used Smokeless Tobacco? Never Used Smokeless Tobacco MIGRATION.584963 1099 Information not available 01/24/2023 How Much Tobacco Do You Smoke? No MIGRATION.573038 4253 Information not available 01/24/2023 Do You Use Any Illicit Or Recreational Drugs? No MIGRATION.394786 2209 Information not available 01/24/2023 Do You Use Sunscreen Routinely? Yes MIGRATION.764487 9338 Information not available 01/24/2023 Have You Recently Traveled Abroad? No MIGRATION.345012 0772 Information not available 01/24/2023 Do You Have Any Dietary Restrictions? No MIGRATION.468544 0813 Information not available 01/24/2023 Do You Or Have You Ever Used Any Other Forms Of Tobacco Or Nicotine? No MIGRATION.424548 8797 Information not available 01/24/2023 Sex: Unknown Functional Status Question Answer Note LastModified by Organizat ion Details LastModified Time What is your exercise level? Moderate [id number] Information not available 01/24/2023 Mental Status None recorded. Family History Relationship Description Onset Age of this Age Resolved Age Notes LastModified by Organization Details LastModified Time Father Coronary arterioscler osis [id number] Not available 01/24/2023 17:13:08 Notes:NO ENT Medical [...] virus, quadrivalent, preservative 0 completed Not Available [facility] 01/24/2023 17:16:18 influenza, unspecified formulation 6 completed Not Available [facility] 01/24/2023 17:16:18 Influenza, split virus, quadrivalent, preservative 9 completed Not Available [facility] 01/24/2023 17:16:18 influenza, unspecified formulation 5 completed Not Available [facility] 01/24/2023 17:16:19 Influenza, split virus, quadrivalent, PF 2 completed Not Available [facility] 01/24/2023 17:16:20 Influenza, split virus, quadrivalent, PF 8 completed Not Available [facility] 01/24/2023 17:16:20 Past Encounters Encounter ID Performer Location Encounter Start Date Encounter Closed Date Diagnosis/Indication Diagnosis SNOMED-CT Code Diagnosis ICD10 Code Diagnosis Note [id number] [facility] [address] [place] [address] 04/22/2021 00:00:00 04/22/2021 13:20:24 [id number] [facility] [address] [place] [address] 08/24/2021 00:00:00 08/24/2021 11:04:18 [id number] [facility] [address] [place] [address] 01/31/2022 00:00:00 02/23/2022 16:48:34 [id number] [facility] [address] [place] [address] 06/16/2022 00:00:00 06/24/2022 17:24:51 [id number] [facility] [address] [place] [address] 07/14/2022 00:00:00 07/23/2022 14:17:45 [id number] [facility] [address] [place] [address] 08/08/2022 00:00:00 08/24/2022 20:16:28 [id number] [facility] [address] [place] [address] 09/07/2022 00:00:00 09/24/2022 13:08:47 [id number] [facility] [address] [place] [address] 09/15/2022 00:00:00 09/19/2022 17:09:32 [id number] [facility] [address] [place] [address] 09/18/2022 00:00:00 09/18/2022 11:07:56 [id number] [facility] [address] [place] [address] 11/07/2022 00:00:00 11/07/2022 10:48:16 [id number] [facility] [address] [place] [address] 01/03/2023 00:00:00 01/20/2023 10:07:49 [id number] DESIREE Meehan [facility] [address] [place] [address] 02/05/2023 09:53:07 02/05/2023 10:21:41 Adult health examination 447414080 Z00.00 annual wellness completed Mixed anxi ety and depressive disorder 508682600 F41.8 stable off medication Long-term drug therapy [id number] Z79.899 labs are all UTD [id number] DESIREE Meehan [facility] [address] [address] [place] [address] 07/20/2023 10:52:23 07/20/2023 11:44:06 Pain in sacrum [id number] M54.50 refer to PM for chronic sacral pain after slipping/f alling on rock while hiking a few years ago. kenalog injection given in office that has helped in past. Degenerati on of cervical intervertebral disc [id number] M50.30 refer back to PM for cervical DDD Mass of buttock [id number] 06 R22.2 pt feels painful nodule in buttock since fall ; she would like u/s completed to evaluate the region. Cervical spondylosis [id number] M47.812 underlying hx noted. Health Concerns Section Related Observation LastModified by Organization Detai ls LastModified Time None Recorded Concern Status LastModified by Organization Details LastModified Time None Recorded Advance Directives Directive None Recorded Payers Encounter Date Sequence Insurance Name Policy Number Policy Multani Covered Member ID Multani Member ID Guarantor Name 02/05/2023 1 [employer] [id number] 4 Maggy Rodriguez [id number] Maggy Rodriguez 07/20/2023 1 [place] [id number] Maggy Rodriguez [id number] Maggy Rodriguez Notes Date Note Type Note Provider Name and Address Organization Details Recorded Time 01/03/2023 text/html Abdominal PainReported bypatient.[facility] Quality:bloating;cram ping;burning Duration:started:; 09/16 Aggravating Factors:eating Alleviating Factors:nothing gives relief Associated Symptoms:heartburn Other:denies possible Not Available Viki 01/20/2023 10:07:49 02/05/2023 text/html Anxiety/Depressi onRep orted [...] shortness of breath wellness DESIREE Meehan [address] [facility], [place] [address], [place], [address], Viki 02/23/2023 12:50:00 07/20/2023 text/html Generic HPI TemplateReported bypatient.Notes:Pt states she needs a new referral to go back to PM for neck pain and back pain. She does feel a mass in her lower back/buttock where she had the injury. She noticed it in January and thinks it is getting bigger. DESIREE Meehan [address], [place] [address], [place], [address], Viki 07/24/2023 22:35:21 OBGyn Episode No OBEpisode recorded.
--- OUTSIDE RECORDS SUMMARY | 2025-01-28 13:46 | XMS_ITS | Clinical Summary ---
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 Pantoja. Can follow up me as needed. Encounters Date Type Department Care Team Description 11/10/2024 1:15 PM REAR ADMIRAL Office Visit [facility] [address] [place] [id number] Francisco Mcelroy MD Varicose veins of lower [...] on file Legal Sex Female 9:55 AM REAR ADMIRAL Gender Identity Not on file Sexual Orientation Not on file Obstetrics History Last Filed Vital Signs Vital Sign Reading Time Taken Comments Blood Pressure 123/82 11/10/2024 1:12 PM REAR ADMIRAL Pulse 71 11/10/2024 1:12 PM REAR ADMIRAL Temperature 36.8 C (98.2 F) 02/24/2024 3:32 PM CDT Respiratory Rate 20 02/24/2024 3:32 PM CDT Oxygen Saturation 100% 02/24/2024 3:32 PM CDT Inhaled Oxygen Concentration - - Weight 54.4 kg (120 lb) 11/10/2024 1:12 PM REAR ADMIRAL Height 157.5 cm (5' 2 ) 11/10/2024 1:12 PM REAR ADMIRAL Body Mass Index 21.95 11/10/2024 1:12 PM REAR ADMIRAL Plan of Treatment Health Maintenance Due Date Last Done Comments Breast Cancer Screening-Mammogram 1979 Cervical Cancer Screening 1979 Colon Cancer Screening-Colonoscopy 1979 Depression Screening 1979 Hepatitis C Screening 1979 DTaP/Tdap/Td Vaccine (1 - Tdap) 1990 Regular Well Visit/Exam 18-64 1997 Covid-19 Vaccine (3 - season) 2024 12/04/2020, 11/11/2020 Hepatitis B Screening Completed 04/10/2001 , 06/14/2000, 04/24/2000 Influenza Vaccine Completed 07/25/2024, , 09/15/2022, Additional history exists HPV Vaccines Aged Out No longer eligi ble based on patient's age to complete this topic Pneumococcal vaccine <65 Aged Out No longer eligible based on patient's age to complete this topic Insurance [facility]PPO Address: [place] [address] [facility]PPO Address: [facility] [address] [place] [address] Care Teams Broke Worker Relationship Specialty Start Date End Date Samanta Alvarenga PA PCP - General Physician Protein Purification Scientist 10/25/18
--- OUTSIDE RECORDS SUMMARY | 2025-01-28 13:46 | XMS_ITS | Data Portability ---
Author Organization [facility] [place] Address [address] [place] [address] Assessment Encounter Date Assessment Date Assessment LastModified [...] MATTEO Brooke, [address], [place], [address], 02/14/2024 08:26:25 vitamin B12 + folate, serum or blood 2023 024 [facility]TE[facility] Brooke, 2022 [address], [address], [place], [address], 02/14/2024 08:26:27 CBC w/ auto diff 2023 024 MATTE[facility] Brooke, [address]22 [address], [place], [address], 02/14/2024 08:26:30 iron + total iron-bind ing capacity (TIBC), serum 2023 024 MATTE[facility] Brooke, 2022 [address], [address], [place], [address], 02/14/2024 08:26:28 ferritin, serum or plasma 2023 024 [facility], [address]22 [address], [address], [place], [address], 02/14/2024 08:26:29 vitamin D, 25-hydrox y, total, serum 2023 024 [facility], [address], [address], [place], [address], 02/14/2024 08:26:30 noninvasi ve colorecta l cancer DNA + occult blood screening , QL, stool 2023 024 [facility] (Cologuard Orders Only), [address], [address], [place], [address], 07/29/2024 07:54:43 CMP, serum or plasma 2023 024 [facility], [address], [address], [place], [address], 02/14/2024 08:26:26 urinalysi s complete, reflex culture 2023 024 [facility], [address]22 [address], [address], [place], [address], 02/14/2024 08:26:27 lipid panel, serum 2023 024 [facility], [address], [address], [place], [address], 02/14/2024 08:26:25 HbA1c (hemoglob in A1c), blood 2023 024 [facility], [address], [address], [place], [address], 02/14/2024 08:26:29 Referral None recorded. Procedures None recorded. Surgeries None recorded. Imaging CT, head, w/o contrast - STAT hold and call Prior auth #[id number] 96 good 09/29/24-1 01/14/24 per Lucie Alvarez @ [facility] 2023 024 [facility], [address] [facility], [facility] [address], [address], 11/14/2024 12:08:55 Medication Orders None recorded. Patient TargetsNo targets recorded. Patient InstructionsNo instructions recorded. Reason for Referral None Reported. Results Created Date Observation Date Name Description Value Unit Range Abnormal Flag Note LastModifiedBy Organization Detail LastModifiedTime 02/13/20 24 02/14/2024 LIPID PANEL W/ CHOL/ HDL RATIO cholesterol, total 226 mg/dL 100-19 9 above high normal Not Available [facility] ([facility]) [address] [place], [address], 02/14/2024 08:26:25 02/13/20 24 02/14/2024 LIPID PANEL W/ CHOL/ HDL RATIO triglyceride s 80 mg/dL 0-149 Not Available [facility] ([facility]) [address] [place], [address], 02/14/2024 08:26:25 02/13/20 24 02/14/2024 LIPID PANEL W/ CHOL/ HDL RATIO HDL cholesterol 107 mg/dL >39 Not Available [facility] ([facility]) [address] [place], [address], 02/14/2024 08:26:25 02/13/20 24 02/14/2024 LIPID PANEL W/ CHOL/ HDL RATIO VLDL cholesterol lashonda 14 mg/dL 5-40 Not Available [facility] ([facility]) [address] [place], [address], 02/14/2024 08:26:25 02/13/20 24 02/14/2024 LIPID PANEL W/ CHOL/ HDL RATIO LDL chol calc ([facility]) 105 mg/dL 0-99 above high normal Not Available [facility] ([facility]) [address] [place], [address], 02/14/2024 08:26:25 02/13/20 24 02/14/2024 LIPID PANEL W/ CHOL/ HDL RATIO T. chol/HDL ratio 2.1 ratio 0.0-4. 4 T. Chol/ HDL Ratio Men Women 1/2 Avg.R isk 3.4 3.3 Avg.R isk 5.0 4.4 2X Avg.R isk 9.6 7.1 3X Avg.R isk 23.4 11.0 Not Available [facility] ([facility]) [address] [place], [address], 02/14/2024 08:26:25 02/13/20 24 02/14/2024 TSH+F REE T4 TSH 1.530 uIU/m L 0.450- 4.500 Not Available [facility] ([facility]) [address] [place], [address], 02/14/2024 08:26:25 02/13/20 24 02/14/2024 TSH+F REE T4 T4,free(dire ct) 1.21 NG/dL 0.82-1 .77 Not Available [facility] ([facility]) [address] [place], [address], 02/14/2024 08:26:25 02/13/20 24 02/14/2024 COMP. METAB OLIC PANEL (14) glucose 66 mg/dL 70-99 below low normal Not Available [facility] ([facility]) [address] [place], [address], 02/14/2024 08:26:26 02/13/20 24 02/14/2024 COMP. METAB OLIC PANEL (14) BUN 13 mg/dL 6-24 Not Available [facility] ([facility]) [address] [place], [address], 02/14/2024 08:26:26 03/20/20 24 02/14/2024 COMP. METAB OLIC PANEL (14) creatinine 0.86 mg/dL 0.57-1 .00 Not Available [facility] ([facility]) [address] [place], [address], 02/14/2024 08:26:26 02/13/20 24 02/14/2024 COMP. METAB OLIC PANEL (14) eGFR 85 mL/mi n/1.7 3 >59 Not Available [facility] ([facility]) [address] [facility], [place], [address], 02/14/2024 08:26:26 02/13/20 24 02/14/2024 COMP. METAB OLIC PANEL (14) BUN/creatini ne ratio 15 9-23 Not Available [facility] ([facility]) [address] [place], [address], 02/14/2024 08:26:26 02/13/20 24 02/14/2024 COMP. METAB OLIC PANEL (14) sodium 139 mmol/ L 134-14 4 Not Available [facility] ([facility]) [address] [place], [address], 02/14/2024 08:26:26 02/13/20 24 02/14/2024 COMP. METAB OLIC PANEL (14) potassium 4.4 mmol/ L 3.5-5. 2 Not Available [facility] ([facility]) [address] [place], [address], 02/14/2024 08:26:26 02/13/20 24 02/14/2024 COMP. METAB OLIC PANEL (14) chloride 104 mmol/ L 96-106 Not Available [facility] ([facility]) [address] [place], [address], 02/14/2024 08:26:26 02/13/20 24 02/14/2024 COMP. METAB OLIC PANEL (14) carbon dioxide, total 21 mmol/ L 20-29 Not Available [facility] ([facility]) [address] [facility], [place], [address], 02/14/2024 08:26:26 02/13/20 24 02/14/2024 COMP. METAB OLIC PANEL (14) calcium 9.9 mg/dL 8.7-10 .2 Not Available [facility] ([facility]) [address] [facility], [place], [address], 02/14/2024 08:26:26 02/13/20 24 02/14/2024 COMP. METAB OLIC PANEL (14) protein, total 7.0 g/dL 6.0-8. 5 Not Available [facility] ([facility]) [address] [facility], [place], [address], 02/14/2024 08:26:26 02/13/20 24 02/14/2024 COMP. METAB OLIC PANEL (14) albumin 4.5 g/dL 3.9-4. 9 Not Available [facility] ([facility]) [address] [place], [address], 02/14/2024 08:26:26 02/13/20 24 02/14/2024 COMP. METAB OLIC PANEL (14) globulin, total 2.5 g/dL 1.5-4. 5 Not Available [facility] ([facility]) [address] [place], [address], 02/14/2024 08:26:26 02/13/20 24 02/14/2024 COMP. METAB OLIC PANEL (14) A/G ratio 1.8 1.2-2. 2 Not Available [facility] ([facility]) [address] [place], [address], 02/14/2024 08:26:26 02/13/20 24 02/14/2024 COMP. METAB OLIC PANEL (14) bilirubin, total 0.4 mg/dL 0.0-1. 2 Not Available [facility] ([facility]) [address], [place], [address], 02/14/2024 08:26:26 02/13/20 24 02/14/2024 COMP. METAB OLIC PANEL (14) alkaline phosphatase 59 IU/L 44-121 Not Available [facility] ([facility]) [address], [place], [address], 02/14/2024 08:26:26 02/13/20 24 02/14/2024 COMP. METAB OLIC PANEL (14) AST (SGOT) 13 IU/L 0-40 Not Available [facility] ([facility]) [address] [facility], [place], [address], 02/14/2024 08:26:26 02/13/20 24 02/14/2024 COMP. METAB OLIC PANEL (14) ALT (SGPT) 9 IU/L 0-32 Not Available [facility] ([facility]) [address] [facility], [place], [address], 02/14/2024 08:26:26 02/13/20 24 02/14/2024 UA WITH CULTU RE REFLE X specific gravity 1.017 1.005- 1.030 Not Available [facility] ([facility]) [address] [facility], [place], [address], 02/14/2024 08:26:27 02/13/20 24 02/14/2024 UA WITH CULTU RE REFLE X pH 7.0 5.0-7. 5 Not Available [facility] ([facility]) [address] [facility], [place], [address], 02/14/2024 08:26:27 02/13/20 24 02/14/2024 UA WITH CULTU RE REFLE X urine-color Yellow yellow Not Available [facility] ([facility]) [address] [facility], [place], [address], 02/14/2024 08:26:27 02/13/20 24 02/14/2024 UA WITH CULTU RE REFLE X appearance Clear clear Not Available [facility] ([facility]) [address] [facility], [place], [address], 02/14/2024 08:26:27 02/13/20 24 02/14/2024 UA WITH CULTU RE REFLE X WBC esterase Negati ve negati ve Not Available [facility] ([facility]) [address] [facility], [place], [address], 02/14/2024 08:26:27 02/13/20 24 02/14/2024 UA WITH CULTU RE REFLE X protein Negati ve negati ve/tra ce Not Available [facility] ([facility]) [address] [facility], [place], [address], 02/14/2024 08:26:27 02/13/20 24 02/14/2024 UA WITH CULTU RE REFLE X glucose Negati ve negati ve Not Available [facility] ([facility]) [address] [facility], [place], [address], 02/14/2024 08:26:27 02/13/20 24 02/14/2024 UA WITH CULTU RE REFLE X ketones Negati ve negati ve Not Available [facility] ([facility]) [address] [facility], [place], [address], 02/14/2024 08:26:27 02/13/20 24 02/14/2024 UA WITH CULTU RE REFLE X occult blood Negati ve negati ve Not Available [facility] ([facility]) [address] [place], [address], 02/14/2024 08:26:27 02/13/20 24 02/14/2024 UA WITH CULTU RE REFLE X bilirubin Negati ve negati ve Not Available [facility] ([facility]) [address] [place], [address], 02/14/2024 08:26:27 02/13/20 24 02/14/2024 UA WITH CULTU RE REFLE X urobilinogen ,semi-qn 0.2 mg/dL 0.2-1. 0 Not Available [facility] ([facility]) [address] [facility], [place], [address], 02/14/2024 08:26:27 02/13/20 24 02/14/2024 UA WITH CULTU RE REFLE X nitrite, urine Negati ve negati ve Not Available [facility] ([facility]) [address] [facility], [place], [address], 02/14/2024 08:26:27 02/13/20 24 02/14/2024 UA WITH CULTU RE REFLE X microscopic examination Commen t Micro scopi c not indic ated and not perfo rmed. Not Available [facility] ([facility]) [address] [facility], [place], [address], 02/14/2024 08:26:27 02/13/20 24 02/14/2024 UA WITH CULTU RE REFLE X urinalysis reflex Commen t This speci men will not refle x to a Urine Cultu re. Not Available [facility] ([facility]) [address] [facility], [place], [address], 02/14/2024 08:26:27 02/13/20 24 02/14/2024 VITAM IN B12 AND FOLAT E vitamin B12 1751 pg/mL 232-12 45 above high normal Not Available [facility] ([facility]) [address] [place], [address], 02/14/2024 08:26:27 02/13/20 24 02/14/2024 VITAM IN B12 AND FOLAT E folate (folic acid), serum 9.2 NG/mL >3.0 A serum folat e natalie ntrat ion of less than 3.1 ng/mL is consi dered to repre sent clini lashonda defic iency . Not Available [facility] ([facility]) [address] [place], [address], 02/14/2024 08:26:27 02/13/20 24 02/14/2024 IRON AND TIBC iron bind.cap.(TI BC) 387 ug/dL 250-45 0 Not Available [facility] ([facility]) [address] [place], [address], 02/14/2024 08:26:28 02/13/20 24 02/14/2024 IRON AND TIBC UIBC 312 ug/dL 131-42 5 Not Available [facility] ([facility]) [address] [place], [address], 02/14/2024 08:26:28 02/13/20 24 02/14/2024 IRON AND TIBC iron 75 ug/dL 27-159 Not Available [facility] ([facility]) [address] [place], [address], 02/14/2024 08:26:28 02/13/20 24 02/14/2024 IRON AND TIBC iron saturation 19 % 15-55 Not Available [facility] ([facility]) [address] [place], [address], 02/14/2024 08:26:28 02/13/20 24 02/13/2024 HEMOG LOBIN A1C hemoglobin A1C 5.4 % 4.8-5. 6 Predi abete s: 5.7 - 6.4 Diabe cem: >6.4 Glyce wyatt contr ol for adult s with diabe cem: <7.0 Not Available [facility] ([facility]) [address] [place], [address], 02/14/2024 08:26:28 02/13/20 24 02/14/2024 MINA TIN ferritin 17 NG/mL 15-150 Not Available [facility] ([facility]) [address] [place], [address], 02/14/2024 08:26:29 02/13/20 24 02/13/2024 CBC WITH DIFFE RENTI AL/PL ATELE T WBC 6.0 x10e3 /uL 3.4-10 .8 Not Available [facility] ([facility]) [address] [facility], [place], [address], 02/14/2024 08:26:30 02/13/20 24 02/13/2024 CBC WITH DIFFE RENTI AL/PL ATELE T RBC 4.69 x10e6 /uL 3.77-5 .28 Not Available [facility] ([facility]) [address] [place], [address], 02/14/2024 08:26:30 02/13/20 24 02/13/2024 CBC WITH DIFFE RENTI AL/PL ATELE T hemoglobin 14.0 g/dL 11.1-1 5.9 Not Available [facility] ([facility]) [address] [place], [address], 02/14/2024 08:26:30 02/13/20 24 02/13/2024 CBC WITH DIFFE RENTI AL/PL ATELE T hematocrit 42.3 % 34.0-4 6.6 Not Available [facility] ([facility]) [address] [place], [address], 02/14/2024 08:26:30 02/13/20 24 02/13/2024 CBC WITH DIFFE RENTI AL/PL ATELE T MCV 90 fL 79-97 Not Available [facility] ([facility]) [address] [place], [address], 02/14/2024 08:26:30 02/13/20 24 02/13/2024 CBC WITH DIFFE RENTI AL/PL ATELE T MCH 29.9 pg 26.6-3 3.0 Not Available [facility] ([facility]) [address] [place], [address], 02/14/2024 08:26:30 02/13/20 24 02/13/2024 CBC WITH DIFFE RENTI AL/PL ATELE T MCHC 33.1 g/dL 31.5-3 5.7 Not Available [facility] ([facility]) [address] [facility], [place], [address], 02/14/2024 08:26:30 02/13/20 24 02/13/2024 CBC WITH DIFFE RENTI AL/PL ATELE T RDW 12.7 % 11.7-1 5.4 Not Available [facility] ([facility]) [address] [facility], [place], [address], 02/14/2024 08:26:30 02/13/20 24 02/13/2024 CBC WITH DIFFE RENTI AL/PL ATELE T platelets 263 x10e3 /uL 150-45 0 Not Available [facility] ([facility]) [address] [facility], [place], [address], 02/14/2024 08:26:30 02/13/20 24 02/13/2024 CBC WITH DIFFE RENTI AL/PL ATELE T neutrophils 62 % notest ab. Not Available [facility] ([facility]) [address] [facility], [place], [address], 02/14/2024 08:26:30 02/13/20 24 02/13/2024 CBC WITH DIFFE RENTI AL/PL ATELE T lymphs 28 % notest ab. Not Available [facility] ([facility]) [address] [facility], [place], [address], 02/14/2024 08:26:30 02/13/20 24 02/13/2024 CBC WITH DIFFE RENTI AL/PL ATELE T monocytes 7 % notest ab. Not Available [facility] ([facility]) [address] [place], [address], 02/14/2024 08:26:30 02/13/20 24 02/13/2024 CBC WITH DIFFE RENTI AL/PL ATELE T eos 2 % notest ab. Not Available [facility] ([facility]) [address] [facility], [place], [address], 02/14/2024 08:26:30 02/13/20 24 02/13/2024 CBC WITH DIFFE RENTI AL/PL ATELE T basos 1 % notest ab. Not Available [facility] ([facility]) [address] [facility], [place], [address], 02/14/2024 08:26:30 02/13/20 24 02/13/2024 CBC WITH DIFFE RENTI AL/PL ATELE T neutrophils (absolute) 3.7 x10e3 /uL 1.4-7. 0 Not Available [facility] ([facility]) [address] [facility], [place], [address], 02/14/2024 08:26:30 02/13/20 24 02/13/2024 CBC WITH DIFFE RENTI AL/PL ATELE T lymphs (absolute) 1.7 x10e3 /uL 0.7-3. 1 Not Available [facility] ([facility]) [address] [place], [address], 02/14/2024 08:26:30 02/13/20 24 02/13/2024 CBC WITH DIFFE RENTI AL/PL ATELE T monocytes(ab solute) 0.4 x10e3 /uL 0.1-0. 9 Not Available [facility] ([facility]) [address] [place], [address], 02/14/2024 08:26:30 02/13/20 24 02/13/2024 CBC WITH DIFFE RENTI AL/PL ATELE T eos (absolute) 0.1 x10e3 /uL 0.0-0. 4 Not Available [facility] ([facility]) [address] [place], [address], 02/14/2024 08:26:30 02/13/20 24 02/13/2024 CBC WITH DIFFE RENTI AL/PL ATELE T baso (absolute) 0.1 x10e3 /uL 0.0-0. 2 Not Available [facility] ([facility]) [address] [facility], [place], [address], 02/14/2024 08:26:30 02/13/20 24 02/13/2024 CBC WITH DIFFE RENTI AL/PL ATELE T immature granulocytes 0 % notest ab. Not Available [facility] ([facility]) [address] [facility], [place], [address], 02/14/2024 08:26:30 02/13/20 24 02/13/2024 CBC WITH DIFFE RENTI AL/PL ATELE T immature grans (abs) 0.0 x10e3 /uL 0.0-0. 1 Not Available [facility] ([facility]) [address] [facility], [place], [address], 02/14/2024 08:26:30 02/13/20 24 02/14/2024 VITAM IN [...] um and D. Staci edwards [place]: [facility] . 2. Mahednra asif MF, Paulo tolliver [place], Ashu off-F errar i READ, et al. Evalu ation , treat ment, and preve ntion of vitam in D defic iency : an Endoc rine Socie ty clini lashonda pract ice guide line. JCEM. 2010; 96(7) :1911 -30. Not Available [facility] ([facility]) [address] [facility], [place], [address], 02/14/2024 08:26:30 08/01/20 24 08/01/2024 COLOG UARD [...] of 10,00 0 indiv idual s at [facility] risk for color ectal cance r [...] asymp tomat ic indiv idual s at [facility] risk for color ectal cance r. Follo wing a negat svetlana Colog uard resul t, the Ameri can Cance r Socie ty and [place].S. Multi -Soci ety Task Force scree valentín guide lines recom mend a Colog uard re-sc corey burrell inter jose eduardo of 3 years . Refer ences : Eliza moreon Cance r Socie ty Guide line for [...] 112:1 016-1 030. TEST DESCR IPTIO N: [place] site algor ithmi c sacha sis of [...] years or older , who are at [facility] for color ectal cance r (CRC) . Colog uard has been appro perfecto for use by the [place] FDA. The perfo rmanc e of Colog uard was estab lishe d in a cross secti onal study of [facility] adult s aged 50-84 . Colog uard [...] a prosp ectiv e cross -sect ional suhail laura study of ,00 0 indiv idual s at [place] [facility] risk for color ectal cance r who were scree sami with both Colog uard and colon oscop y. (Eboni Oconnell al, N Engl J Med 2014; 370(1 [...] ution s can be found at www.c sarahu vitaliy.c om. Not Available [facility] (Cologuard Orders Only) [address], [place], [address], 08/06/2024 17:35:10 11/14/20 24 09/29/2024 CT, head, w/o contr ast No observ ation record ed. [facility] [address] [facility] [address], [place], [address], 11/14/2024 18:08:19 01/13/20 25 01/13/2025 MAMMO , scree valentín, digit al, bilat eral No observ ation record ed. [address], [place], [address], 01/19/2025 15:33:25 Result Notes None recorded. Procedures Surgical History None recorded. Imaging Results Imaging Date Name Status LastModified by Organiz ation Details LastModified Time 09/29/2024 CT, head, w/o contrast completed [facility] [address] [address] [address], [place], [address], 11/14/2024 18:08:19 01/13/2025 MAMMO, screening, digital, bilateral completed [address] [facility] [address], [place], [address], 01/19/2025 15:33:25 Procedure Notes None recorded. Medical Equipment None Reported. Allergies Allergen ID Allergen Name Allergen Category Reaction Reaction Severity Criticality Documentation Date Start Date Code Code System Note Provider Name and Address Organization Details Recorded Time 653416 latex environme nt,medica tion Not available Not available Not available 01/30/2024 88993 91 RxNorm Not Available Not Available Not Available 452449 Product containin g penicilli n (product) medicatio n Not available Not available Not available 01/30/2024 15901 8001 SNOMED Not Available Not Available Not Available 590137 Product containin g cephalosp mariposa (product) medicatio n rash Not available low 01/30/2024 55755 9009 SNOMED Not Available Not Available Not Available 945744 vancomyci n medicatio n rash Not available low 01/30/2024 76168 RxNorm Not Available Not Available Not Available [...] Address Organization Details Last Updated DateTime 4 70205.8 6 g 82 /min 22.5 kg/m2 157.48 cm 18 /min 99 % 99 % 101 mm[Hg] 69 mm[Hg] Faith Tsang MA [facility] 4 09:44:58 Date Recorded Systolic blood pressure Diastolic blood pressure Provider Name and Address Organization Details Last Updated DateTime 01/30/2024 100 mm[Hg] 70 mm[Hg] DESIREE Meehan Attn: Accounting,[address] [place], [address], [facility] 01/30/2024 10:06:44 Date Recorded Body height Body mass index (BMI) Body weight Respiratory rate Oxygen saturation Oxygen saturation in Arterial blood by Pulse oximetry Heart rate Systolic blood pressure Diastolic blood pressure Provider Name and Address Organization Details Last Updated DateTime 4 157.48 cm 21.8 kg/m2 94279.4 9 g 18 /min 100 % 100 % 75 /min 112 mm[Hg] 72 mm[Hg] Faith Tsang MA [facility] 15:26:17 Date Recorded Systolic blood pressure Diastolic blood pressure Provider Name and Address Organization Details Last Updated DateTime 09/29/2024 110 mm[Hg] 80 mm[Hg] DESIREE Meehan Attn: Accounting,[address] [facility], [place], [address], [facility] 09/29/2024 15:46:09 Social History Question Answer Notes LastModified by Organizat ion Details LastModified Time Tobacco Smoking Status Never Smoker Faith Tsang MA null, [facility] 01/30/2024 09:43:56 What Is Your Level [...] Response Coronary Artery Disease N Other N Atrial Fibrillation N High Blood Pressure N Thyroid Problems N Kidney or Bladder Problems N Depression N COPD N Blood Clots N GI Problems N Skin Problems N Anemia N Heart Attack (CO) N Diabetes N Anxiety Disorder N Muscle, Joint, or Bone Problems N Seizures/Epilepsy N Acid Reflux (GERD) N Cancer N Stroke N Allergies N Asthma N High Cholesterol N Hepatitis N Liver Disease N Headaches N Osteoporosis N Heart Failure N Gynecological History Statement/Question Response Menses Monthly N Current Control Method Other Obstetrics History GPAL:G 4 P 4 0 0 4 Type Value Multiple Births 0 Full Term 4 Induced 0 Spontaneous 0 Premature 0 Living 4 Ectopics 0 Total 4 Immunizations Vaccine Type Date Status Note Provider Nam e and Address Organization Details Recorded Time Influenza, MDCK, quadrivalent, PF 09/03/2020 completed Faith Tsang MA null, [place] - [facility] 09/29/2024 15:05:28 COVID-19, mRNA, LNP-S, PF, 30 mcg/0.3 mL dose 12/04/2020 completed Faith Tsang [place], [place] [facility] 09/29/2024 15:05:28 COVID-19, mRNA, LNP-S, PF, 30 mcg/0.3 mL dose 11/11/2020 WILLIAM [place] [facility] 09/29/2024 15:05:28 COVID-19, mRNA, LNP-S, PF, 30 mcg/0.3 mL dose, janae-sucrose 12/08/2021 completed WILLIAM العراقي[place] [facility] 09/29/2024 15:05:28 Hep B, adult 04/10/2001 completed Faith Ts[place] [facility] 09/29/2024 15:05:28 Hep B, adult 04/24/2000 completed Faith Ts[place] [facility] 09/29/2024 15:05:28 Hep B, adult 06/14/2000 completed Faith Ts[place] [facility] 09/29/2024 15:05:28 Influenza, split virus, quadrivalent, PF 09/05/2021 completed WILLIAM الع[place] [facility] 09/29/2024 15:05:28 Influenza, split virus, quadrivalent, PF 09/18/2019 completed WILLIAM الع[place] [facility] 09/29/2024 15:05:28 Past Encounters Encounter ID Performer Location Encounter Start Date Encounter Closed Date Diagnosis/Indication Diagnosis SNOMED-CT Code Diagnosis ICD10 Code Diagnosis Note [id number] Faith Tsang MA [facility] [address] [place] [address] 01/30/2024 09:26:20 01/30/2024 12:59:09 Adult health examination 674015420 Z00.00 annual wellness completed Cholesterol screening 27 2477464 Z13.220 fasting lipids due Diabetes m ellitus screening 599623805 Z13.1 a1c screening due Degenerati on of cervical intervertebral disc 32993507 M50.30 stable Degenerati on of lumbar intervertebral disc 71931021 M51.36 stable Loss of hair 469743773 L 65.9 hair loss lab panel ordered. Long-term drug therapy 662550903 Z79.899 cbc and cmp due. Screening for malignant neoplasm of colon 341152611 Z12.11 pt opts for cologuard screening this year when she turns 44. [id number] [facility] - Rao Zimmer [address] [place] [address] 09/29/2024 14:55:30 09/29/2024 16:04:51 Contusion of head 326004484 S00.93XA Send for stat CT of the head without contrast to rule out any subdural or subarachno id after striking the head on the corner of wooden [facility] counter and having laceration . Headache 93931618 R51.9 As above Health Concerns Section Related Observation LastModified by Organization Detai ls LastModified Time None Recorded Concern Status LastModified by Organization Details LastModified Time None Recorded Advance Directives Directive None Recorded Payers Encounter Date Sequence Insurance Name Policy Number Policy Multani Covered Member ID Multani Member ID Guarantor Name 01/30/2024 1 [facility] [id number] Maggy Rodriguez [id number] Maggy Rodriguez 09/29/2024 1 [facility] [id number] Maggy Rodriguez [id number] Maggy Rodriguez Notes Date Note Type Note Provider Name and Address Organization Details Recorded Time 01/30/2024 text/html Generic HPI TemplateReported bypatient.Notes:annual well exam. Hx of DDD of neck and low back. stable. no acute c/o except increased hair loss. no fam hx of male pattern baldness or female hair loss. Faith Tsang MA [facility], [place] - [facility] 01/30/2024 10:48:32 09/29/2024 text/html Sunday afterno on patient was in her kitchen near her [facility] and she dropped her keys and bent down quickly to get it and unfortunately hit the sq corner of the [facility]. She has a contusion with laceration and was bleeding all over. She did not lose consciousness but she did see stars if you will and felt very lightheaded and nauseous. She did not have any vomiting. She does have residual headache that is constant. She has not had any vomiting but does continue to have nausea. DESIREE Meehan Attn: Accounting,[address] [facility], [place], [address], [facility] - [facility] 09/29/2024 15:51:30 OBGyn Episode No OBEpisode recorded.
--- OUTSIDE RECORDS SUMMARY | 2025-01-28 13:46 | XMS_ITS | Clinical Summary ---
Author Organization [facility] [employer] Address [address] [facility] [place] [address] Care Team Providers Care Lead Press Operator Name Role Phone Samanta Pace Primary Care Pr ovider Source Comments [facility],non-owned Affiliates and Associated Physician Practices is amultiple site organization consisting of ambulatory clinics and hospital sitesin [place], [place], [place] and [place]. This disclosure is being madepursuant to the Care Everywhere program and may not contain all information available regarding this patient. Last updated 18.[facility] [employer] Allergies Active Allergy Reactions Criticality Noted Date [...] sublingual tablet Active trimethoprim-luigi ymyxin B (POLYTRIM) 87346-6.1 UNIT/ML-% ophthalmic solution polymyxin B sulfate 10,000 [...] age to complete this topic Care Teams Lead Press Operator Relationship Specialty Start Date End Date Samanta Pace PA [address] [place] [address] PCP - General 04/02/22
--- OUTSIDE RECORDS SUMMARY | 2025-01-28 13:46 | XMS_ITS | Encounter Summary ---
Author Organization [facility] Address [facility] [place] [address] Care Team Providers Care Key Operator Name Role Phone Samanta Alvarenga Primary Care Provider [phone] Reason for Referral * Surgical (Routine) - Canceled Specialty Diagnoses / Procedures Referred By Owen meyer Referred To Contact Diagnoses Facet arthropathy, cervical Procedures Case request operating room: BLOCK MEDIAL BRANCH CERVICAL C4, C5, C6 Hortensia Hunt APNP Phone: tel: fax: Referral ID Status Reason Start Date Expiration Date V isits Requested Visits Authorized [id number] Canceled 09/26/2018 10/26/2019 1 1 Encounter Details Date Type Department Care Team (Late st Contact Info) Description 09/26/[address] [facility] [place] [address] [id number] Hortensia Hunt APNP [address] [place] [phone] Social History Tobacco Use Types Packs/Day Years [...] Care Team (Latest Contact Info) Description 02/10/2025 8:40 AM CDT Hospital Encounter [facility] [place] [address] [id number] Sharlene Bear MD Three [facility] [address] [place] [address] 02/10/2025 8:40 AM CDT - 02/10/2025 9:[address] [facility] [place] [address] [id number] Sharlene Bear MD Three [facility] [address] [place] [address] BLOCK MEDIAL BRANCH CERVICAL-C4, 5, 6 Scheduled Procedures Name Priority Associated Diagnoses Date/Ti me BLOCK MEDIAL BRANCH CERVICAL Cervical spondylosis 02/10/2025 8:40 AM CDT documented as of this encounter Visit Diagnoses Diagnosis Facet arthropathy, cervical- Primary Cervical spondylosis without myelopathy Cervical spondylosis Cervical spondylosis without myelopathy documented in this encounter Care Teams Key Operator Relationship Specialty Start Date End Date Samanta Alvarenga PA [address] [place] [address] PCP - General 08/29/18 documented as of this encounter
--- OUTSIDE RECORDS SUMMARY | 2025-01-28 13:46 | XMS_ITS | Referral Summary ---
Author Organization [facility] [employer] Address [address] [facility] [place] [address] Care Team Providers Care Obstetrics Gynecology Md Name Role Phone Samanta Pace Primary Care Pr ovider Source Comments [facility],non-owned Affiliates and Associated Physician Practices is amultiple site organization consisting of ambulatory clinics and hospital sitesin [place], [place], [place] and [place]. This disclosure is being madepursuant to the Care Everywhere program and may not contain all information available regarding this patient. Last updated 18.[facility] [employer] Allergies Active Allergy Reactions Criticality Noted Date [...] sublingual tablet Active trimethoprim-luigi ymyxin B (POLYTRIM) 22923-6.1 UNIT/ML-% ophthalmic solution polymyxin B sulfate 10,000 [...] of Treatment Not on file Care Teams Obstetrics Gynecology Md Relationship Specialty Start Date End Date Samanta Pace PA [address] [place] [address] PCP - General 04/02/22
--- OUTSIDE RECORDS SUMMARY | 2025-01-28 13:47 | XMS_ITS | Continuity of Care Document ---
Author Organization [facility] Address [address] [facility] [address] [place] [address] Phone Care Team Providers Care Balance Clerk Name Role Phone MarilusameerRajaniMalachi Unavailable Unavailable Procedures Procedure Date Eye Exam, New Patient Advance Directives Directive Yes / No Effective Date File Name No Information Encounters Encounter Description Practice Location Reason(s) For Visit Diagnoses Date Provider Providers Copied on Encounter [facility], [address], [place], [place], [id number], [place] tel:[phone] [facility] No Information [address]. [address] [facility] [address], [place], [address], [place]. tel:[phone] Family History Family Member Type Diagnosis Age At Onset No Information Payers Payer name Insurance type Covered alliance party ID Authoriza tiamber(s) [employer] [place] [id number] Social History Type Description Quantity Date Captured [...]
--- OUTSIDE RECORDS SUMMARY | 2025-01-28 13:47 | XMS_ITS | Clinical Summary ---
Author Organization [facility] Address [address] [place] [address] Care Team Providers Care Starch And Prosize Mixer Name Role Phone Annesaturnino Samanta DESIREE Primary Care Provider [phone] Allergies Active Allergy Reactions Criticality Noted Date [...] Care Team Description 01/07/2025 Prep for Procedure [facility] [place] [address] [id number] Leonora Ace CNP from Last 3 Months [...] Description 02/10/2025 8:40 AM CDT Hospital Encounter [facility] [place] [address] [id number] Sharlene Bear MD Three [address] [address] 02/10/2025 8:40 AM CDT - 02/10/2025 9:00 AM CDT Surgery [facility] [place] [address] [id number] Sharlene Bear MD Three [facility] [address] [place] [address] BLOCK MEDIAL BRANCH CERVICAL-C4, 5, 6 Scheduled Procedures Name Priority Associated Diagnoses Date/Ti me BLOCK MEDIAL BRANCH CERVICAL Cervical spondylosis 02/10/2025 8:40 AM CDT Health Maintenance Due Date Last [...] to complete this topic Insurance [facility] Care Teams Starch And Prosize Mixer Relationship Specialty Start Date End Date Samanta Alvarenga PA [address] [place] [address] PCP - General 08/29/18
--- OUTSIDE RECORDS SUMMARY | 2025-01-28 13:47 | XMS_ITS | Clinical Summary ---
Author Organization [facility] Address [address] [place] [address] Phone Care Team Providers Care Grinding Machine Operator Automatic Name Role Phone Unavailable Primary Care Provider [...] Encounters Date Type Department Care Team Description 01/14/2025 External Device Data [facility] ABSTRACTION Provider, Abstract 01/06/2025 External Device Data [facility] ABSTRACTION Provider, Abstract 12/18/2024 External Device Data [facility] ABSTRACTION Provider, Abstract from Last 3 Months Immunizations Immunization Administration Dates Next Due (Kmsocial)(12 YR UP) COVID-19 VACCINE - EMERGENCY USE AUTHORIZATION, MRNA, [id number](PF) 30 MCG/0.3 ML IM SUSP 12/04/2020,11/11/2020 INFLUENZA [...] Comments Blood Pressure 124/76 10/25/2017 9:30 AM HOUSE SITTER Pulse - - Temperature - - Respiratory Rate - - Oxygen Saturation - - Inhaled Oxygen Concentration - - Weight 54.4 kg (120 lb) 10/25/2017 9:30 AM HOUSE SITTER Height 157.5 cm (5' 2 ) 10/25/2017 9:30 AM HOUSE SITTER Body Mass Index 21.95 10/25/2017 9:30 AM HOUSE SITTER Plan of Treatment Health Maintenance Due Date [...]
--- OUTSIDE RECORDS SUMMARY | 2025-01-28 13:47 | XMS_ITS | Patient Health Record ---
Author Organization [employer] Address [address] [place] [address] Care Team Providers Care Hay Farmer Name Role Phone Samanta Alvarenga Primary Care Provider Unavailab alice Laz Muñiz Unavailable [phone] Allergies Allergen (clinical drug ingredient) Drug/Non Drug [...] Status Risk Notes Problem Generalized abdominal pain (816913817) Generalized abdominal pain (R10.84) Active confirmed Maggy [...] SIBO, and others. Problem Nausea and vomiting (30104882) Nausea and vomiting (R11.2) Active confirmed Plan Of Treatment Pending Test Test Name Order Date Upper Endoscopy 02/07/2023 Insurance Providers Payer Name Payer Address Payer Phone Subscriber Number Group Number Insured Name Patient Relationship to Insured Coverage Start Date Coverage End Date Blue Access PPO E2 [address] [place] [address] [id number] Maggy Rodriguez Self - patient is the insured Medical (General) History Surgical History Surgery Date(Month/Year) Removal of Ovary
== END 2025-01-28 12:25 | disposition home or self-care (01) ==
LOC: ANHIMG 12:28
PROVIDERS: PCP Physician Assistant; Visit Provider Obstetrics & Gynecology
DX: R92.8 Other abnormal and inconclusive findings on diagnostic imaging of breast (principal)
CPT/HCPCS: 77062; 77066; G0279

== ENCOUNTER 2025-03-11 00:07 | Day surgery (SDC) | payer OTHER, SELFPAY ==
[2025-03-02 09:26] VITALS: BMI 21.9
--- NOTE | 2025-03-02 09:35 | PC.NURSE ---
Addendum entered by Juan Francisco Nice RN 03/02/25 16:04: Lindsey informed during crutch training that surgery time had moved to 130pm and she needs to arrive at 1130am. Original Note: Report to the Outpatient Waiting Room, entrance under the green pavilion located off [facility], at time _0830_ on date _[id number]_. Planned Procedure Time: _1030_.? Time changes happen often and if your time is changed the preop area will call you the afternoon before. - You and your visitor will be asked to self-screen and do not enter if you have any COVID symptoms. Please call surgeon if you need to reschedule. - A mask is optional within the hospital at this time. Patients may have clear liquids (water, carbonated beverages, clear teas, apple juice) until 3 hours prior to surgery with a maximum of 20 ounces. - No food from midnight until time of surgery and no smoking, or chewing tobacco (or any form of nicotine). No chewing gum, candy or mints. Take only the following medications with a SIP of water on the morning of surgery: __None DO NOT STOP ANY OF YOUR OTHER PRESCRIPTION MEDICATIONS PRIOR TO SURGERY EXCEPT THE FOLLOWING Hold all vitamins and supplements for 3 days per anesthesiologist. Medications to discontinue per physician Date to take last jmjv___[phone]____ Please no make-up, nail cuban, hairspray, perfume, deodorant, or body powder the day of surgery.? No jewelry (including any body piercings) or valuables the day of surgery, leave them at home.? Please take a shower or bath the night before, or the morning of, surgery with an antibacterial soap.? Wear comfortable, loose fitting clothing.? - Jewelry must be removed prior to entering the operating room.? Rings and piercings that are not removed may be cut off. - The hospital will not accept responsibility for valuables.? - Please leave all valuables, including medications, at home the day of surgery. If you are going home after surgery, a licensed commercial relief driver must drive you home.? - NO public transportation without another adult if you receive anesthesia. - We recommend that an adult stay with you for 24 hours following discharge. - We also recommend that you do not drive, make important decision, drink alcoholic beverages, or take any drugs that were not prescribed by your health care provider for at least 24 hours after your discharge time. Follow any additional instructions given to you from your surgeon. Telephone instructions given to __Maggy___and asked if any additional questions and then verbalized understanding. Patient advised to call surgeon office or pre surgery nurse liaison [phone] if any additional questions.
[2025-03-11] VITALS (7 sets, daily range): BP systolic 94–109; BP diastolic 44–82; PULSE 59–85; RESP 14–16; TEMP 36.1–37; O2SAT 95–100
--- OUTSIDE RECORDS SUMMARY | 2025-03-11 00:09 | XMS_ITS | Data Portability ---
Author Organization [facility] Address [address] [place] [address] Care Team Providers Care Print Developer Name Role Phone BREANNA OLIVERA Primary Care Provider Unavailab le Assessment Encounter Date Assessment Date Assessment LastModified by Organization Details LastModified Time 01/30/2024 01/30/2024 pap smear UTD with Dr. Brar Mammogram still to complete she's waiting using evidence based medicine to decide when to get hers. colon screening due june. Not available 01/30/2024 10:07:41 02/05/2025 02/05/2025 pap smear UTD with Dr. Brar Mammogram UTD cologuard jul 2024 negative. Not available 02/06/2025 13:17:22 Plan of Treatment Reminders Order Date Submit Date Provider Last Modified By Organization Details Last Modified Time Details Appointments ANY 15 2025 01:30P M DESIREE Meehan Not available Not available Not available Lab TSH + free T4, serum 2024 025 MATTEO Lab[facility], [address], [address], [place], [address], 02/05/2025 14:45:09 CMP, serum or plasma 2024 025 MATTEO Brooke, 2022 [address], [address], [place], [address], 02/05/2025 14:45:08 CBC w/ auto diff 2024 025 MATTEO Lab[facility], 2022 [address], [address], [place], [address], 02/05/2025 14:45:08 cobalamin and folate panel, serum 2024 025 [facility], 2022 [address], [address], [place], [address], 02/05/2025 14:45:09 lipid panel, serum 2024 025 [facility], [address], [address], [place], [address], 02/05/2025 14:45:08 HbA1c (hemoglob in A1c), blood 2024 025 [facility], [address]22 [address], [address], [place], [address], 02/05/2025 14:45:09 TSH + free T4, serum 2023 024 [facility], [address]22 [address], [address], [place], [address], 02/14/2024 08:26:25 vitamin B12 + folate, serum or blood 2023 024 [facility], [address], [address], [place], [address], 02/14/2024 08:26:27 CBC w/ auto diff 2023 024 [facility], [address]22 [address], [address], [place], [address], 02/14/2024 08:26:30 iron + total iron-bind ing capacity (TIBC), serum 2023 024 [facility], [address]22 [address], [address], [place], [address], 02/14/2024 08:26:28 ferritin, serum or plasma 2023 024 [facility], [address]22 [address], [address], [place], [address], 02/14/2024 08:26:29 vitamin D, 25-hydrox y, total, serum 2023 024 [facility], [address]22 [address], [address], [place], [address], 02/14/2024 08:26:30 noninvasi ve colorecta l cancer DNA + occult blood screening , QL, stool 2023 024 [email or web address] [facility] (Cologuard Orders Only), [address], [address], [place], [address], 07/29/2024 07:54:43 CMP, serum or plasma 2023 024 [facility], 2022 [address], [address], [place], [address], 02/14/2024 08:26:26 urinalysi s complete, reflex culture 2023 024 [facility], [address]22 [address], [address], [place], [address], 02/14/2024 08:26:27 lipid panel, serum 2023 024 [facility], 2022 [address], [address], [place], [address], 02/14/2024 08:26:25 HbA1c (hemoglob in A1c), blood 2023 024 [facility], [address]22 [address], [address], [place], [address], 02/14/2024 08:26:29 Referral None recorded. Procedures None recorded. Surgeries None recorded. Imaging CT, head, w/o contrast - STAT hold and call Prior auth #[id number] 96 good 09/29/24-1 01/14/24 per Lucie Alvarez @ [facility] 2023 024 [facility], [address] [facility], [address], [address], 11/14/2024 12:08:55 Medication Orders None recorded. Patient TargetsNo targets recorded. Patient InstructionsNo instructions recorded. Reason for Referral None Reported. Results Created Date Observation Date Name Description Value Unit Range Abnormal Flag Note LastModifiedBy Organization Detail LastModifiedTime 02/13/20 24 02/14/2024 LIPID PANEL W/ CHOL/ HDL RATIO cholesterol, total 226 mg/dL 100-19 9 above high normal Not Available [facility] ([facility]) [address] [place], [address], 02/14/2024 08:26:25 02/13/20 24 02/14/2024 LIPID PANEL W/ CHOL/ HDL RATIO triglyceride s 80 mg/dL 0-149 Not Available [facility] [address] [place], [address], 02/14/2024 08:26:25 02/13/20 24 02/14/2024 LIPID PANEL W/ CHOL/ HDL RATIO HDL cholesterol 107 mg/dL >39 Not Available [facility] [address] [place], [address], 02/14/2024 08:26:25 02/13/20 24 02/14/2024 LIPID PANEL W/ CHOL/ HDL RATIO VLDL cholesterol lashonda 14 mg/dL 5-40 Not Available [facility] ([facility]) [address] [place], [address], 02/14/2024 08:26:25 02/13/20 24 02/14/2024 LIPID PANEL W/ CHOL/ HDL RATIO LDL chol calc ([facility]) 105 mg/dL 0-99 above high normal Not Available [facility] ([facility]) [address] [place], [address], 02/14/2024 08:26:25 02/13/20 24 02/14/2024 LIPID PANEL W/ CHOL/ HDL RATIO T. chol/HDL ratio 2.1 ratio 0.0-4. 4 T. Chol/ HDL Ratio Men Women 1/2 Avg.R isk 3.4 3.3 Avg.R isk 5.0 4.4 2X Avg.R isk 9.6 7.1 3X Avg.R isk 23.4 11.0 Not Available [facility] ([facility]) [address] [place], [address], 02/14/2024 08:26:25 02/13/20 24 02/14/2024 TSH+F REE T4 TSH 1.530 uIU/m L 0.450- 4.500 Not Available [facility] ([facility]) [address] [place], [address], 02/14/2024 08:26:25 02/13/20 24 02/14/2024 TSH+F REE T4 T4,free(dire ct) 1.21 NG/dL 0.82-1 .77 Not Available [facility] ([facility]) [address] [place], [address], 02/14/2024 08:26:25 02/13/20 24 02/14/2024 COMP. METAB OLIC PANEL (14) glucose 66 mg/dL 70-99 below low normal Not Available [facility] ([facility]) [address] [place], [address], 02/14/2024 08:26:26 02/13/20 24 02/14/2024 COMP. METAB OLIC PANEL (14) BUN 13 mg/dL 6-24 Not Available [facility] ([facility] [address] [place], [address], 02/14/2024 08:26:26 02/13/20 24 02/14/2024 COMP. METAB OLIC PANEL (14) creatinine 0.86 mg/dL 0.57-1 .00 Not Available [facility] ([facility]) [address] [facility], [place], [address], 02/14/2024 08:26:26 02/13/20 24 02/14/2024 COMP. METAB OLIC PANEL (14) eGFR 85 mL/mi n/1.7 3 >59 Not Available [facility] ([facility]) [address] [facility], [place], [address], 02/14/2024 08:26:26 02/13/20 24 02/14/2024 COMP. METAB OLIC PANEL (14) BUN/creatini ne ratio 15 9-23 Not Available [facility]) [address] [facility], [place], [address], 02/14/2024 08:26:26 02/13/20 24 02/14/2024 COMP. METAB OLIC PANEL (14) sodium 139 mmol/ L 134-14 4 Not Available [facility] ([facility]) [address] [facility], [place], [address], 02/14/2024 08:26:26 02/13/20 24 02/14/2024 COMP. METAB OLIC PANEL (14) potassium 4.4 mmol/ L 3.5-5. 2 Not Available [facility] ([facility]) [address] [facility], [place], [address], 02/14/2024 08:26:26 02/13/20 24 02/14/2024 COMP. METAB OLIC PANEL (14) chloride 104 mmol/ L 96-106 Not Available [facility] ([facility]) [address] [facility], [place], [address], 02/14/2024 08:26:26 02/13/20 24 02/14/2024 COMP. METAB OLIC PANEL (14) carbon dioxide, total 21 mmol/ L 20-29 Not Available [facility] ([facility]) [address] [facility], [place], [address], 02/14/2024 08:26:26 02/13/20 24 02/14/2024 COMP. METAB OLIC PANEL (14) calcium 9.9 mg/dL 8.7-10 .2 Not Available [facility] ([facility] [address] [facility] [place], [address], 02/14/2024 08:26:26 02/13/20 24 02/14/2024 COMP. METAB OLIC PANEL (14) protein, total 7.0 g/dL 6.0-8. 5 Not Available [facility] ([facility]) [address] [facility] [place], [address], 02/14/2024 08:26:26 02/13/20 24 02/14/2024 COMP. METAB OLIC PANEL (14) albumin 4.5 g/dL 3.9-4. 9 Not Available [facility] ([facility]) [address] [facility] [place], [address], 02/14/2024 08:26:26 02/13/20 24 02/14/2024 COMP. METAB OLIC PANEL (14) globulin, total 2.5 g/dL 1.5-4. 5 Not Available [facility] ([facility] [address] [facility] [place], [address], 02/14/2024 08:26:26 02/13/20 24 02/14/2024 COMP. METAB OLIC PANEL (14) A/G ratio 1.8 1.2-2. 2 Not Available [facility] ([facility] [address] [facility] [place], [address], 02/14/2024 08:26:26 02/13/20 24 02/14/2024 COMP. METAB OLIC PANEL (14) bilirubin, total 0.4 mg/dL 0.0-1. 2 Not Available [facility] ([facility] [address] [facility] [place], [address], 02/14/2024 08:26:26 02/13/20 24 02/14/2024 COMP. METAB OLIC PANEL (14) alkaline phosphatase 59 IU/L 44-121 Not Available [facility] [address] [place], [address], 02/14/2024 08:26:26 02/13/20 24 02/14/2024 COMP. METAB OLIC PANEL (14) AST (SGOT) 13 IU/L 0-40 Not Available [facility] ([facility]) [address] [facility], [place], [address], 02/14/2024 08:26:26 02/13/20 24 02/14/2024 COMP. METAB OLIC PANEL (14) ALT (SGPT) 9 IU/L 0-32 Not Available [facility] ([facility]) [address] [facility], [place], [address], 02/14/2024 08:26:26 02/13/20 24 02/14/2024 UA WITH CULTU RE REFLE X specific gravity 1.017 1.005- 1.030 Not Available [facility] ([facility]) [address] [place], [address], 02/14/2024 08:26:27 02/13/20 24 02/14/2024 UA WITH CULTU RE REFLE X pH 7.0 5.0-7. 5 Not Available [facility] ([facility]) [address] [place], [address], 02/14/2024 08:26:27 02/13/20 24 02/14/2024 UA WITH CULTU RE REFLE X urine-color Yellow yellow Not Available [facility] [address] [place], [address], 02/14/2024 08:26:27 02/13/20 24 02/14/2024 UA WITH CULTU RE REFLE X appearance Clear clear Not Available [facility] ([facility]) [address] [place], [address], 02/14/2024 08:26:27 02/13/20 24 02/14/2024 UA WITH CULTU RE REFLE X WBC esterase Negati ve negati ve Not Available [facility] ([facility]) [address] [place], [address], 02/14/2024 08:26:27 02/13/20 24 02/14/2024 UA WITH CULTU RE REFLE X protein Negati ve negati ve/tra ce Not Available [facility] ([facility]) [address] [place], [address], 02/14/2024 08:26:27 02/13/20 24 02/14/2024 UA WITH CULTU RE REFLE X glucose Negati ve negati ve Not Available [facility] ([facility]) [address] [place], [address], 02/14/2024 08:26:27 02/13/20 24 02/14/2024 UA WITH CULTU RE REFLE X ketones Negati ve negati ve Not Available [facility] ([facility]) [address] [place], [address], 02/14/2024 08:26:27 02/13/20 24 02/14/2024 UA WITH CULTU RE REFLE X occult blood Negati ve negati ve Not Available [facility] ([facility]) [address] [place], [address], 02/14/2024 08:26:27 02/13/20 24 02/14/2024 UA WITH CULTU RE REFLE X bilirubin Negati ve negati ve Not Available [facility] ([facility]) [address] [place], [address], 02/14/2024 08:26:27 02/13/20 24 02/14/2024 UA WITH CULTU RE REFLE X urobilinogen ,semi-qn 0.2 mg/dL 0.2-1. 0 Not Available [facility] ([facility] [address] [facility] [place], [address], 02/14/2024 08:26:27 02/13/20 24 02/14/2024 UA WITH CULTU RE REFLE X nitrite, urine Negati ve negati ve Not Available [facility] ([facility]) [address] [facility], [place], [address], 02/14/2024 08:26:27 02/13/20 24 02/14/2024 UA WITH CULTU RE REFLE X microscopic examination Commen t Micro scopi c not indic ated and not perfo rmed. Not Available [facility] ([facility]) [address] [facility], [place], [address], 02/14/2024 08:26:27 02/13/20 24 02/14/2024 UA WITH CULTU RE REFLE X urinalysis reflex Commen t This speci men will not refle x to a Urine Cultu re. Not Available [facility] ([facility]) [address] [facility], [place], [address], 02/14/2024 08:26:27 02/13/20 24 02/14/2024 VITAM IN B12 AND FOLAT E vitamin B12 1751 pg/mL 232-12 45 above high normal Not Available [facility] ([facility]) [address] [place], [address], 02/14/2024 08:26:27 02/13/20 24 02/14/2024 VITAM IN B12 AND FOLAT E folate (folic acid), serum 9.2 NG/mL >3.0 A serum folat e natalie ntrat ion of less than 3.1 ng/mL is consi dered to repre sent clini lashonda defic iency . Not Available [facility] ([facility]) [address] [facility], [place], [address], 02/14/2024 08:26:27 02/13/20 24 02/14/2024 IRON AND TIBC iron bind.cap.(TI BC) 387 ug/dL 250-45 0 Not Available [facility] ([facility]) [address] [facility], [place], [address], 02/14/2024 08:26:28 02/13/20 24 02/14/2024 IRON AND TIBC UIBC 312 ug/dL 131-42 5 Not Available [facility] ([facility]) [address] [facility], [place], [address], 02/14/2024 08:26:28 02/13/20 24 02/14/2024 IRON AND TIBC iron 75 ug/dL 27-159 Not Available [facility] ([facility]) [address] [facility], [place], [address], 02/14/2024 08:26:28 02/13/20 24 02/14/2024 IRON AND TIBC iron saturation 19 % 15-55 Not Available [facility]) [address] [facility], [place], [address], 02/14/2024 08:26:28 02/13/20 24 02/13/2024 HEMOG LOBIN A1C hemoglobin A1C 5.4 % 4.8-5. 6 Predi abete s: 5.7 - 6.4 Diabe cem: >6.4 Glyce wyatt contr ol for adult s with diabe cem: <7.0 Not Available [facility] ([facility]) [address] [place], [address], 02/14/2024 08:26:28 02/13/20 24 02/14/2024 MINA TIN ferritin 17 NG/mL 15-150 Not Available [facility] ([facility]) [address] [place], [address], 02/14/2024 08:26:29 02/13/20 24 02/13/2024 CBC WITH DIFFE RENTI AL/PL ATELE T WBC 6.0 x10e3 /uL 3.4-10 .8 Not Available [facility] ([facility]) [address] [place], [address], 02/14/2024 08:26:30 02/13/20 24 02/13/2024 CBC WITH DIFFE RENTI AL/PL ATELE T RBC 4.69 x10e6 /uL 3.77-5 .28 Not Available [facility] ([facility]) [address] [facility], [place], [address], 02/14/2024 08:26:30 02/13/20 24 02/13/2024 CBC WITH DIFFE RENTI AL/PL ATELE T hemoglobin 14.0 g/dL 11.1-1 5.9 Not Available [facility] ([facility]) [address] [place], [address], 02/14/2024 08:26:30 02/13/20 24 02/13/2024 CBC WITH DIFFE RENTI AL/PL ATELE T hematocrit 42.3 % 34.0-4 6.6 Not Available [facility] ([facility]) [address] [place], [address], 02/14/2024 08:26:30 02/13/20 24 02/13/2024 CBC WITH DIFFE RENTI AL/PL ATELE T MCV 90 fL 79-97 Not Available [facility] ([facility]) [address] [place], [address], 02/14/2024 08:26:30 02/13/20 24 02/13/2024 CBC WITH DIFFE RENTI AL/PL ATELE T MCH 29.9 pg 26.6-3 3.0 Not Available [facility] ([facility]) [address] [place], [address], 02/14/2024 08:26:30 02/13/20 24 02/13/2024 CBC WITH DIFFE RENTI AL/PL ATELE T MCHC 33.1 g/dL 31.5-3 5.7 Not Available [facility] ([facility]) [address] [facility], [place], [address], 02/14/2024 08:26:30 02/13/20 24 02/13/2024 CBC WITH DIFFE RENTI AL/PL ATELE T RDW 12.7 % 11.7-1 5.4 Not Available [facility] ([facility]) [address] [facility], [place], [address], 02/14/2024 08:26:30 02/13/20 24 02/13/2024 CBC WITH DIFFE RENTI AL/PL ATELE T platelets 263 x10e3 /uL 150-45 0 Not Available [facility] ([facility]) [address] [facility], [place], [address], 02/14/2024 08:26:30 02/13/20 24 02/13/2024 CBC WITH DIFFE RENTI AL/PL ATELE T neutrophils 62 % notest ab. Not Available [facility] ([facility]) [address] [facility], [place], [address], 02/14/2024 08:26:30 02/13/20 24 02/13/2024 CBC WITH DIFFE RENTI AL/PL ATELE T lymphs 28 % notest ab. Not Available [facility] ([facility]) [address] [facility], [place], [address], 02/14/2024 08:26:30 02/13/20 24 02/13/2024 CBC WITH DIFFE RENTI AL/PL ATELE T monocytes 7 % notest ab. Not Available [facility] ([facility]) [address] [facility], [place], [address], 02/14/2024 08:26:30 02/13/20 24 02/13/2024 CBC WITH DIFFE RENTI AL/PL ATELE T eos 2 % notest ab. Not Available [facility] ([facility]) [address] [facility], [place], [address], 02/14/2024 08:26:30 02/13/20 24 02/13/2024 CBC WITH DIFFE RENTI AL/PL ATELE T basos 1 % notest ab. Not Available [facility] ([facility]) [address] [facility], [place], [address], 02/14/2024 08:26:30 02/13/20 24 02/13/2024 CBC WITH DIFFE RENTI AL/PL ATELE T neutrophils (absolute) 3.7 x10e3 /uL 1.4-7. 0 Not Available [facility] ([facility] [address] [facility], [place], [address], 02/14/2024 08:26:30 02/13/20 24 02/13/2024 CBC WITH DIFFE RENTI AL/PL ATELE T lymphs (absolute) 1.7 x10e3 /uL 0.7-3. 1 Not Available [facility] ([facility] [address] [facility], [place], [address], 02/14/2024 08:26:30 02/13/20 24 02/13/2024 CBC WITH DIFFE RENTI AL/PL ATELE T monocytes(ab solute) 0.4 x10e3 /uL 0.1-0. 9 Not Available [facility] ([facility]) [address] [facility], [place], [address], 02/14/2024 08:26:30 02/13/20 24 02/13/2024 CBC WITH DIFFE RENTI AL/PL ATELE T eos (absolute) 0.1 x10e3 /uL 0.0-0. 4 Not Available [facility] ([facility]) [address] [facility], [place], [address], 02/14/2024 08:26:30 02/13/20 24 02/13/2024 CBC WITH DIFFE RENTI AL/PL ATELE T baso (absolute) 0.1 x10e3 /uL 0.0-0. 2 Not Available [facility] ([facility]) [address] [facility], [place], [address], 02/14/2024 08:26:30 02/13/20 24 02/13/2024 CBC WITH DIFFE RENTI AL/PL ATELE T immature granulocytes 0 % notest ab. Not Available [facility] ([facility]) [address] [facility], [place], [address], 02/14/2024 08:26:30 02/13/20 24 02/13/2024 CBC WITH DIFFE RENTI AL/PL ATELE T immature grans (abs) 0.0 x10e3 /uL 0.0-0. 1 Not Available [facility] ([facility]) [address] [facility], [place], [address], 02/14/2024 08:26:30 02/13/20 24 02/14/2024 VITAM IN [...] Endoc rine Socie ty went on to [facility] defin e vitam in D insuf ficie ncy as a level betwe en 21 and 29 ng/mL (2). 1. IOM (Inst itute of Medic ine). 2010. Dieta ry refer ence intak es for calci um and D. Staci edwards [place]: The [facility]ade [facility] Press . 2. Mahendra asif MF, Paulo tolliver [place], Ashu off-F errkumar i READ, et al. Evalu ation , treat ment, and preve ntion of vitam in D defic iency : an Endoc rine Socie ty clini lashonda pract ice guide line. JCEM. 2010; 96(7) :1911 -30. Not Available [facility] ([facility]) [address], [place], [address], 02/14/2024 08:26:30 08/01/20 24 08/01/2024 COLOG UARD cologuard result reportable Negati ve negati ve normal NEGAT SVETLANA TEST RESUL T. A negat svetlana Colog uard resul t indic ates a low likel ihood that a color ectal cance r (CRC) or advan alessia adeno ma (spencer omato us polyp s with more advan alessia pre-m align ant featu res) is prese nt. The [facility] [place] e that a perso n with a negat svetlana Colog uard test has a color ectal cance r is less than 1 in 1500 (nega tive predi ctive value >99.9 %) or has an advan alessia adeno ma is less than 5.3% (nega tive predi ctive value 94.7% ). These data are based on a prosp ectiv e cross -sect ional study of ,00 0 indiv idual s at [place] ge risk for color ectal cance r [...] asymp tomat ic indiv idual s at [place] ge risk for color ectal cance r. Follo wing a negat svetlana Colog uard resul t, the Ameri can Cance r Socie ty and U.S. Multi -Soci ety Task Force scree valentín guide lines recom mend a Colog uard re-sc reeni ng inter jose eduardo of 3 years . Refer ences : Ameri can Cance r Socie ty Guide line for Color ectal Cance r Scree valentín: https ://mars w.can cer.o rg/ca ncer/ colon -rect al-ca ncer/ detec tion- diagn osis- stagi ng/ac s-rec ommen datio ns.ht ml.; Almas SAM, Luiza TALAMANTES, Marta NessK, Color ectal Cance r Scree valentín: Recom menda tions for Physi cians and Patie nts from the U.S. Multi -Soci ety Task Force on Color ectal Cance r Scree valentín , Helena das rolog y 2017; 112:1 016-1 030. TEST DESCR IPTIO N: [place] site algor ithmi c sacha sis of stool DNA-b iomar kers with hemog lobin immun oassa y. Quant itati ve value s of indiv idual bioma rkers are not repor table and are not assoc iated with indiv idual bioma rker resul t refer ence range s. Colog uard is inten ded for color ectal cance r scree valentín of adult s of eithe r sex, 45 years or older , who are at [facility] for color ectal cance r (CRC) . Colog uard has been appro perfecto for use by the U.S. FDA. The perfo rmanc e of Colog uard was estab lishe d in a cross secti onal study of [facility] adult s aged 50-84 . Colog uard perfo rmanc e in patie nts ages 45 to 49 years was estim ated by sub-g roup sacha sis of near- age group s. [...] cross -sect ional scree valentín study of 10,00 0 indiv idual s at avera ge risk for color ectal cance r [...] cance r). The curre nt Colog uard [place] laura inter jose eduardo is every 3 years . (Amer ican Cance r Socie ty and U.S. Multi -Soci ety Task Force ). Colog uard perfo rmanc e data in a 10,00 0 patie nt pivot al study using colon oscop y as the refer ence metho d can be acces sed at the follo wing locat ion: www.e xactl abs.c om/re sultracey . Addit ional descr iptio n of the Colog uard test proce ss, warni ngs and preca ution s can be found at www.c ologu vitaliy.c om. Not Available [facility] (Cologuard Orders Only) [address], [place], [address], 08/06/2024 17:35:10 11/14/20 24 09/29/2024 CT, head, w/o contr ast No observ ation record ed. [facility] [address], [place], [address], 11/14/2024 18:08:19 01/13/20 25 01/13/2025 MAMMsuhail Quevedo digit al, bilat eral No observ ation record ed. [address], [place], [address], 01/19/2025 15:33:25 01/29/20 25 01/28/2025 MAMMsuhail Quevedog, digit al, bilat eral No observ ation record ed. [address], [address], 02/06/2025 13:24:11 Result Notes None recorded. Problems Name Problem SNOMED Code Status Onset Date Resolution Date Notes Provider Name and Address Organization Details Recorded Time Body mass index 20-24 - normal 653070601 Active 2024 Faith Tsang MA null, [facility] 14:13:33 Long-term drug therapy Active 2024 DESIREE Meehan Attn: Valerie g,[address] [place], [address], [facility] 5 14:44:40 Degeneration of lumbar intervertebral disc 15292898 Active 2024 DESIREE Meehan Attn: Valerie g,[address] [place], [address], [facility] 14:44:41 Degeneration of cervical intervertebral disc 31190312 Active 2024 DESIREE Meehan Attn: Accountmikayla g,[address] [place], [address], [facility] 14:44:44 Problem Notes None recorded. Procedures Surgical History None recorded. Imaging Results Imaging Date Name Status [facility]Modified by [facility] Details LastModified Time 09/29/2024 CT, head, w/o contrast completed [facility] [address], [place], [address], 11/14/2024 18:08:19 01/13/2025 MAMMO, screening, digital, bilateral completed [address], [address], 01/19/2025 15:33:25 01/28/2025 MAMMO, screening, digital, bilateral completed [address], [address], 02/06/2025 13:24:11 Procedure Notes None recorded. Medical Equipment None Reported. Allergies Allergen ID Allergen Name Allergen Category Reaction Reaction Severity Criticality Documentation Date Start Date Code Code System Note Provider Name and Address Organization Details Recorded Time 148645 latex environme nt,medica tion Not available Not available Not available 01/30/2024 [id number] 91 RxNorm Not Available Not Available Not Available 405048 Product containin g penicilli n (product) medicatio n Not available Not available Not available 01/30/2024 52821 8001 SNOMED Not Available Not Available Not Available 960114 Medicinal product containin g cephalosp [place] and acting as antibacte rial agent (product) medicatio n rash Not available low 01/30/2024 88816 9009 SNOMED Not Available Not Available Not Available 318397 vancomyci n medicatio n rash Not available low 01/30/2024 07604 RxNorm Not Available Not Available Not Available [...] BY MOUTH EVERY 12 HOURS WITH MEALS 02/05 completed Not Available Not Available Not Available ketorolac 10 mg tablet Take 1 tablet every 6 hours by oral route with meal(s) for 5 days. 02/05 completed Not Available Not Available Not Available methylpredn isolone 4 mg tablets in a dose pack TAKE BY MOUTH DIRECTED ON INSIDE OF PACKAGE 09/29 completed Not Available Not Available Not Available drospirenon e 3 mg-ethinyl estradiol 0.03 mg tablet TAKE 1 TABLET BY MOUTH EVERY DAY. TAKE CONTINOUS LY AND SKIP PLACEBO TABLETS 09/29 completed Not Available Not Available Not Available Vitamin D active otc Not Available Not Kacie ilable Not Available Tri-Estaryl la (28) 0.18 mg(7)/0.215 mg(7)/0.25 mg(7)-0.035 mg tablet 02/05 completed Not Available Not Available Not Available Nextstellis 3 mg-14.2 mg (28) tablet [...] Address Organization Details Last Updated DateTime 4 75346.8 6 g 82 /min 22.5 kg/m2 157.48 cm 18 /min 99 % 99 % 101 mm[Hg] 69 mm[Hg] Faith Tsang MA [facility] 4 09:44:58 Date Recorded Systolic blood pressure Diastolic blood pressure Provider Name and Address Organization Details Last Updated DateTime 01/30/2024 100 mm[Hg] 70 mm[Hg] DESIREE Meehan Attn: Accounting[address] [place], [address], [facility] 01/30/2024 10:06:44 Date Recorded Body height Body mass index (BMI) Body weight Respiratory rate Oxygen saturation Oxygen saturation in Arterial blood by Pulse oximetry Heart rate Systolic blood pressure Diastolic blood pressure Provider Name and Address Organization Details Last Updated DateTime 4 157.48 cm 21.8 kg/m2 07224.4 9 g 18 /min 100 % 100 % 75 /min 112 mm[Hg] 72 mm[Hg] Faith Tsang MA [facility] 4 15:26:17 Date Recorded Systolic blood pressure Diastolic blood pressure Provider Name and Address Organization Details Last Updated DateTime 09/29/2024 110 mm[Hg] 80 mm[Hg] DESIREE Meehan Attn: Accounting[address] [place], [address], [facility] 09/29/2024 15:46:09 Date Recorded Body height Body mass index (BMI) Body weight Respiratory rate Oxygen saturation Oxygen saturation in Arterial blood by Pulse oximetry Heart rate Systolic blood pressure Diastolic blood pressure Provider Name and Address Organization Details Last Updated DateTime 5 157.48 cm 22.1 kg/m2 04831.6 8 g 18 /min 99 % 99 % 72 /min 116 mm[Hg] 82 mm[Hg] Faith Tsang MA [facility] 14:16:45 Date Recorded Systolic blood pressure Diastolic blood pressure Provider Name and Address Organization Details Last Updated DateTime 02/05/2025 110 mm[Hg] 80 mm[Hg] DESIREE Meehan Attn: Accounting[address] [facility], [place], [address], [facility] 02/05/2025 14:47:50 Social History Question Answer Notes LastModified by Organizat ion Details LastModified Time Tobacco Smoking Status Never Smoker Faith Tsang MA [facility], [facility] 01/30/2024 09:43:56 Do You Have An Advance Directive? Yes Information not available 02/05/2025 What Is Your Level Of Alcohol Consumption? [...] No Information not available 01/30/2024 Are You Currently Employed? Yes Information not available 02/05/2025 Are You Deaf Or Do You Have Serious Difficulty Hearing? No Information not available 01/30/2024 What Type Of Diet Are You Following? REGULAR Information not available 01/30/2024 Are There Any Guns Present In Your Home? No Information not available 01/30/2024 What Was The Date Of Your Most Recent Tobacco Screening? 02/05/2025 Information not available 02/05/2025 What Is Your Relationship Status? Information not available 02/05/2025 Do You Use Your Seat Belt Or [...] Atrial Fibrillation N High Blood Pressure N Depression N COPD N Blood Clots N Anxiety Disorder N Muscle, Joint, or Bone Problems N Acid Reflux (GERD) N Cancer N Stroke N High Cholesterol N Liver Disease N Headaches N Thyroid Problems N Kidney or Bladder Problems N GI Problems N Skin Problems N Anemia N Heart Attack (CT) N Diabetes N Seizures/Epilepsy N Asthma N Allergies N Hepatitis N Osteoporosis N Heart Failure N Gynecological History Statement/Question Response Menses Monthly N Current Control Method Menopause Obstetrics History GPAL:G 4 P 4 0 [...] PF, 30 mcg/0.3 mL dose 12/04/2020 completed [place] [facility] 09/29/2024 [...] 09/29/2024 15:05:28 Hep B, adult 04/24/2000 completed [place] [facility] 09/29/2024 15:05:28 Hep B, adult 06/14/2000 completed Faith Tsang [place] [facility] 09/29/2024 15:05:28 Influenza, split virus, quadrivalent, PF 09/05/2021 completed Faith Ts[place] [facility] 09/29/2024 15:05:28 Influenza, split virus, quadrivalent, PF 09/18/2019 completed [place] [facility] 09/29/2024 15:05:28 Past Encounters Encounter ID Performer Location Encounter Start Date Encounter Closed Date Diagnosis/Indication Diagnosis SNOMED-CT Code Diagnosis ICD10 Code Diagnosis Note [id number] Faith Tsang MA [facility] [address] [place] [address] 01/30/2024 09:26:20 01/30/2024 12:59:09 Adult health examination 527751272 Z00.00 annual wellness completed Cholesterol screening 27 7993893 Z13.220 fasting lipids due Diabetes m ellitus screening 982580489 Z13.1 a1c screening due Degenerati on of cervical intervertebral disc 99575417 M50.30 stable Degenerati on of lumbar intervertebral disc 55563663 M51.36 stable Loss of hair 577460624 L 65.9 hair loss lab panel ordered. Long-term drug therapy 757331314 Z79.899 cbc and cmp due. Screening for malignant neoplasm of colon 191752698 Z12.11 pt opts for cologuard screening this year when she turns 44. [id number] [facility] [employer] [address] [place] [address] 09/29/2024 14:55:30 09/29/2024 16:04:51 Contusion of head 973564869 S00.93XA Send for stat CT of the head without contrast to rule out any subdural or subarachno id after striking the head on the corner of wooden expeller worker block kitchen island counter and having laceration . Headache 67875620 R51.9 As above [id number] DESIREE Meehan [facility] [employer] [address] [place] [address] 02/05/2025 14:02:46 02/05/2025 14:50:57 Body mass index 20-24 - normal 544589947 Z68.22 BMI is 22.1 Adult heal th examination 875789432 Z00.00 annual wellness completed Cholesterol screening 27 6565185 Z13.220 fasting lipids due Diabetes m ellitus screening 303833398 Z13.1 a1c screening due Degenerati on of cervical intervertebral disc 49474581 M50.30 will be seeing pain management upcoming Degenerati on of lumbar intervertebral disc 70953867 M51.369 Patient will be seeing pain management Long-term drug therapy 728234368 Z79.899 cmp, cbc and b12, folate labs are due Thyroid di sorder screening 706674491 Z13.29 Routine thyroid testing due Health Concerns Section Related Observation LastModified by Organization Detai ls LastModified Time None Recorded Concern Status LastModified by Organization Details LastModified Time None Recorded Advance Directives Directive Y: Payers Encounter Date Sequence Insurance Name Policy Number Policy Multani Covered Member ID Multani Member ID Guarantor Name 01/30/[address] [facility] [id number] Maggy Rodriguez [id number] Maggy Rodriguez 09/29/[address] [facility] [id number] Maggy Rodriguez [id number] Maggy Rodriguez 02/05/[address] [facility] [id number] Maggy Rodriguez [id number] Maggy Rodriguez Notes Date Note Type Note Provider Name and Address Organization Details Recorded Time 01/30/2024 text/html Generic HPI TemplateReported bypatient.Notes:annual well exam. Hx of DDD of neck and low back. stable. no acute c/o except increased hair loss. no fam hx of male pattern baldness or female hair loss. Faith Tsang MA [facility], [place] [facility] 01/30/2024 10:48:32 09/29/2024 text/html Sunday afterno on patient was in her kitchen near her [employer] [facility] kitchen [place] and she dropped her keys and bent down quickly to get it and unfortunately hit the sq corner of the [facility]. She has a contusion with laceration and was bleeding all over. She did not lose consciousness but she did see stars if you will and felt very lightheaded and nauseous. She did not have any vomiting. She does have residual headache that is constant. She has not had any vomiting but does continue to have nausea. DESIREE Meehan Attn: Accounting,[address] [facility], [place], [address], [facility] 09/29/2024 15:51:30 02/05/2025 text/html Generic HPI TemplateReported bypatient.Notes:annual well exam. Hx of DDD of neck and low back. stable. Patient is due for all updated labs and will be going back to her pain management doctor for her chronic neck and low back pain DESIREE Meehan Attn: Accounting,[address] [facility], [place], [address], [facility] - [facility] 02/23/2025 23:26:19 OBGyn Episode No OBEpisode recorded.
--- OUTSIDE RECORDS SUMMARY | 2025-03-11 00:09 | XMS_ITS | Clinical Summary ---
Author Organization [facility] [address] [facility] [address] [place] [address] Care Team Providers Care Tonguer Name Role Phone Samanta Alvarenga Primary Care [...] 11/11/2024 Assessment & Plan (11/11/2024 10:43 AM GROCERY STOCKER): Reticular veins of the posterior knee no significant varicosities, we discussed management of spider reticular veins would predominantly be sclerotherapy I have written a referral for Dr. Pantoja. Can follow up me as needed. Medical History Medical History Date Comments Arthritis Kidney stone Social History Tobacco Use Types Packs/Day Years Used Date Smoking Tobacco: Never Smokeless Tobacco: Never Tobacco Cessation:Counseling Given: Not Answered Comments Unknown Sex and Gender Information Value Date Recorded Sex Assigned at Not on file Legal Sex Female 9:55 AM GROCERY STOCKER Gender Identity Not on file Sexual Orientation Not on file Obstetrics History Last Filed Vital Signs Vital Sign Reading Time Taken Comments Blood Pressure 123/82 11/10/2024 1:12 PM GROCERY STOCKER Pulse 71 11/10/2024 1:12 PM GROCERY STOCKER Temperature 36.8 C (98.2 F) 02/24/2024 3:32 PM CDT Respiratory Rate 20 02/24/2024 3:32 PM CDT Oxygen Saturation 100% 02/24/2024 3:32 PM CDT Inhaled Oxygen Concentration - - Weight 54.4 kg (120 lb) 11/10/2024 1:12 PM GROCERY STOCKER Height 157.5 cm (5' 2 ) 11/10/2024 1:12 PM GROCERY STOCKER Body Mass Index 21.95 11/10/2024 1:12 PM GROCERY STOCKER Plan of Treatment Health Maintenance Due Date Last Done Comments Breast Cancer Screening-Mammogram 1979 Cervical Cancer Screening 1979 Colon Cancer Screening-Colonoscopy 1979 Depression Screening 1979 Hepatitis C Screening 1979 DTaP/Tdap/Td Vaccine (1 - Tdap) 1990 Regular Well Visit/Exam 18-64 1997 Covid-19 Vaccine ( season) 2024 12/04/2020, 11/11/2020 Hepatitis B Screening Completed 04/10/2001 , 06/14/2000, 04/24/2000 Influenza Vaccine Completed 07/25/2024, , 09/15/2022, Additional history exists HPV Vaccines Aged Out No longer eligi ble based on patient's age to complete this topic Pneumococcal vaccine <65 Aged Out No longer eligible based on patient's age to complete this topic Insurance [facility] CHOICE PLUS [facility] CHOICE PLUS Care Teams Tonguer Relationship Specialty Start Date End Date Samanta Alvarenga PA PCP - General Physician Pediatric Care Coordinator 10/25/18
--- OUTSIDE RECORDS SUMMARY | 2025-03-11 00:09 | XMS_ITS | Encounter Summary ---
Author Organization [facility] Health Address [address] [place] [address] Care Team Providers Care Engineering Technologist Name Role Phone Munira Lopez MD Primary Care Provider [phone] Samanta Pace Primary Care Pr ovider Encounter Details Date Type Department Care Team (Late st Contact Info) Description 10/27/2021 Lab Requisition [facility] [address] [facility], [place] [id number] Katy Augustine MD [address] [facility] [address] [place] [address] Social History Tobacco Use Types Packs/Day Years Used Date Smoking Tobacco: Never Smokeless Tobacco: Never Comments No Sex and Gender Information Value Date Recorded Sex Assigned at Not on file Legal Sex Female 6:17 AM OBSTETRIC ANAESTHETIST Gender Identity Not on file Sexual Orientation Not on file documented as of this encounter Plan of Treatment Not on file documented as of this encounter Procedures Procedure Name Priority Date/Time Associated Diagnosis Comments DERMATOPATHOLOGY Routine 10/26/2021 12:0 0 AM OBSTETRIC ANAESTHETIST documented in this encounter Results * DERMATOPATHOLOGY (10/26/2021 12:00 AM OBSTETRIC ANAESTHETIST) Case Report Dermatopathology Report Case: [id number] Authorizing Provider: Katy Augustine MD Collected: 10/26/2021 12:00 AM Ordering Location: [facility] Received: 10/27/2021 08:02 AM Pathologist: Starla Ace MD Specimen: Skin, left lower leg 1:15 PM OBSTETRIC ANAESTHETIST DERMATOPATHOLOGY LABORATORY Final Diagnosis Specimen A. SKIN, left lower leg: DERMATOFIBROMA (D23.9) 1:15 PM OBSTETRIC ANAESTHETIST DERMATOPATHOLOGY LABORATORY Clinical History Redbird Smith papule DF R/O BCC. 1:15 PM OBSTETRIC ANAESTHETIST DERMATOPATHOLOGY LABORATORY Gross Description Specimen A: Received is one formalin filled container labeled with the patient's name and designated left lower leg. The specimen consists of a shave measuring [id number]. Jar 0. 1:15 PM OBSTETRIC ANAESTHETIST DERMATOPATHOLOGY LABORATORY Microscopic Description Specimen A. SKIN, left lower leg: There is epidermal hyperplasia. Within the dermis, there are fibrohistiocytic cells in haphazard array among coarse collagen bundles. 1:15 PM OBSTETRIC ANAESTHETIST DERMATOPATHOLOGY LABORATORY Disclaimer An external and internal positive and negative controls are appropriate for the histochemical, immunohistochemical and immunofluorescence stain(s) in this case (if any), except where stated explicitly. The performance characteristics of the stain(s) cited in this report were developed and its performance characteristic determined by the Dermatopathology Laboratory at [facility], directed by Dr. Jori Zhang. These tests need not be, and therefore are not, approved by the [place] Food and Drug Administration. The tests are used for clinical purposes. Billing Codes Specimen Charges Stain Charges 13854 1 1:15 PM OBSTETRIC ANAESTHETIST DERMATOPATHOLOGY LABORATORY Embedded Images 1:15 PM OBSTETRIC ANAESTHETIST DERMATOPATHOLOGY LABORATORY Pathology/Cytolog y TISSUE SPECIMEN FROM SKIN / Unknown 10/26/2021 10/27/2021 8:02 AM OBSTETRIC ANAESTHETIST Katy Augustine MD LAB - PATHOLOGY/CYTOLOGY ORD ERABLES Final Result DERMATOPATHOLOGY LABORATORY [facility] - Department of Dermatology [facility] Medicine [facility], 3rd Floor [address] [phone] documented in this encounter Visit Diagnoses Not on filedocumented in this encounter Care Teams Engineering Technologist Relationship Specialty Start Date End Date Munira Lopez MD [address] [place] [address] PCP - General 07/01/21 04/01/22 Samanta Pace PA [address] [place] [address] PCP - General 04/02/22 documented as of this encounter
--- OUTSIDE RECORDS SUMMARY | 2025-03-11 00:09 | XMS_ITS | Referral Summary ---
Author Organization [facility] [address] [facility] [address] [place] [address] Care Team Providers Care Engineer Steam Name Role Phone Samanta Alvarenga Primary Care [...] 11/11/2024 Assessment & Plan (11/11/2024 10:43 AM ENGINEER GEOPHYSICAL LABORATORY): Reticular veins of the posterior knee no [...] on file Legal Sex Female 9:55 AM ENGINEER GEOPHYSICAL LABORATORY Gender Identity Not on file Sexual Orientation Not on file Last Filed Vital Signs Vital Sign Reading Time Taken Comments Blood Pressure 123/82 11/10/2024 1:12 PM ENGINEER GEOPHYSICAL LABORATORY Pulse 71 11/10/2024 1:12 PM ENGINEER GEOPHYSICAL LABORATORY Temperature 36.8 C (98.2 F) 02/24/2024 3:32 PM CDT Respiratory Rate 20 02/24/2024 3:32 PM CDT Oxygen Saturation 100% 02/24/2024 3:32 PM CDT Inhaled Oxygen Concentration - - Weight 54.4 kg (120 lb) 11/10/2024 1:12 PM ENGINEER GEOPHYSICAL LABORATORY Height 157.5 cm (5' 2 ) 11/10/2024 1:12 PM ENGINEER GEOPHYSICAL LABORATORY Body Mass Index 21.95 11/10/2024 1:12 PM ENGINEER GEOPHYSICAL LABORATORY Plan of Treatment Not on file Insurance [facility]PPO Address: [address] [address] [place] [address] [facility] CHOICE PLUS [facility]MO/PPO Address: [address] [address] [place] [address] Care Teams Engineer Steam Relationship Specialty Start Date End Date Samanta Alvarenga PA PCP - General Physician [facility] 10/25/18
--- OUTSIDE RECORDS SUMMARY | 2025-03-11 00:09 | XMS_ITS | Clinical Summary ---
Author Organization [facility] Address [address] [facility] [place] [address] Care Team Providers Care Soil Sampler Name Role Phone Samanta Pace Primary Care Pr ovider Source Comments [facility],non-owned Affiliates and Associated Physician Practices is amultiple site organization consisting of ambulatory clinics and hospital sitesin [place], [place], [place] and [place]. This disclosure is being madepursuant to the Care Everywhere program and may not contain all information available regarding this patient. Last updated 18.[facility] Allergies Active Allergy Reactions Criticality Noted Date Comments Cephalexin Urticaria Medium 02/02/2021 Latex Rash Medium 10/25/2017 Cefdinir 11/24/2016 Penicillins Rash Medium 08/16/2018 Vancomycin 11/24/2016 Medications * Be aware that medications may not be up to date on this document. Alwaysverify current medications with the patient. levonorgestrel -ethinyl estradiol (SEASONIQUE) 0.15-0.03 &0.01 MG tablet Take 1 Tab by mouth once daily Active MAGNESIUM CHLORIDE PO Active norgestimate-e thinyl estradiol (ORTHO-CYCLEN; MONONESSA; PREVIFEM; SPRINTEC) 0.25-35 MG-MCG tablet Ariella 0.25 mg-35 mcg tablet TAKE ONE TABLET BY MOUTH ONCE DAILY CONTINIOUSLY SKIPPING PLACEBO PILLS Active norgestim-eth estrad triphasic 0.18/0.215/0.2 5 MG-35 MCG tablet Tri Femynor (28) 0.18 mg(7)/0.215 mg(7)/0.25 mg(7)-35 mcg tablet TAKE 1 TABLET BY MOUTH EVERY DAY Active cyclobenzaprin e (FLEXERIL) 10 MG tablet Take 10 mg by mouth as needed Take 1/2 to 1 tablet by mouth 3 times a day as needed for pain 12/28/19 22 Active cyclobenzaprin e (FLEXERIL) 5 MG tablet cyclobenzaprine 5 mg tablet Active gabapentin (NEURONTIN) 100 MG capsule Take 100 mg by mouth at bedtime Take 1 to 2 capsules by mouth every day at bedtime 03/02/20 22 Active HYDROcodone-ac etaminophen (NORCO) 5-325 MG tablet hydrocodone 5 mg-acetaminophen 325 mg tablet TAKE 1 TABLET BY MOUTH EVERY 4 HOURS NEEDED FOR PAIN Active HYDROcodone-ib uprofen (IBUDONE) 7.5-200 MG hydrocodone 7.5 mg-ibuprofen 200 mg tablet Active ibuprofen (MOTRIN) 200 MG tablet Take 200 mg by mouth every 6 hours as needed Active Magnesium Oxide 250 MG Take 1 tablet by mouth once daily Active nitroGLYCERIN (NITROSTAT) 0.4 MG tablet Nitrostat 0.4 mg sublingual tablet Active trimethoprim-p olymyxin B (POLYTRIM) 73198-5.1 UNIT/ML-% ophthalmic solution polymyxin B sulfate 10,000 unit-trimethoprim 1 mg/mL eye drops Active predniSONE (DELTASONE) 20 MG tablet PLEASE SEE ATTACHED FOR DETAILED DIRECTIONS 08/29/20 21 Active tamsulosin (FLOMAX) 0.4 MG capsule Take 1 (one) capsule by mouth once daily At the same time every day after a meal. 30 capsule 04/05/20 22 Active linaCLOtide (LINZESS) 145 MCG capsule Take 1 (one) capsule by mouth daily before breakfast Take on an empty stomach at least 30 minutes prior to first meal of the day. 30 capsule 04/05/20 22 Active Family History Medical History Relation Name Comments CAD (Coronary Artery Disease) Father Relation Name Status Comments Father Social History Tobacco Use Types Packs/Day Years Used Date Smoking Tobacco: Never Smokeless Tobacco: Never Alcohol Use Standard Drinks/Week Comments Yes 1 (1 standard drink = 0.6 oz pur e alcohol) Comments No Sex and Gender Information Value Date Recorded Sex Assigned at Not on file Legal Sex Female 6:17 AM BRIGADIER Gender Identity Not on file Sexual Orientation [...] 3-dose series) 1998 COVID-19 VACCINE (3 - season) 2024 12/04/2020, 11/11/2020 DEPRESSION SCREENING 11/26/2024 INFLUENZA VACCINE (Season Ended) 2025 09/03/2020, 09/18/2019, 09/13/2018, Additional history exists ZOSTER VACCINE (1 of 2) 2029 HIB VACCINE Aged Out No longer eligi ble based on patient's age to complete this topic HPV VACCINE Aged Out No longer eligi ble based on patient's age to complete this topic MENINGOCOCCAL (Group B) VACCINE SHARED DECISION-MAKING Aged Out No longer eligible based on patient's age to complete this topic MENINGOCOCCAL GROUPS A/C/Y/W VACCINE Aged Out No longer eligible based on patient's age to complete this topic PNEUMOCOCCAL VACCINE Aged Out No long er eligible based on patient's age to complete this topic Insurance ANTHEM ANTHEM Care Teams Soil Sampler Relationship Specialty Start Date End Date Samanta Pace PA [address] [place] [address] PCP - General 04/02/22
--- OUTSIDE RECORDS SUMMARY | 2025-03-11 00:09 | XMS_ITS | Encounter Summary ---
Author Organization [facility] Address [facility] [place] [address] Care Team Providers Care Inside Steward/Stewardess Name Role Phone Samanta Alvarenga Primary Care Provider [phone] Reason for Referral * Surgical (Routine) - Canceled Specialty Diagnoses / Procedures Referred By Owen t Referred To Contact Diagnoses Facet arthropathy, cervical Procedures Case request operating room: BLOCK [facility]IAL [facility] CERVICAL C4, C5, C6 Hortensia Hunt APNP Phone: tel: fax: Referral ID Status Reason Start Date Expiration Date V isits Requested Visits Authorized [id number] Canceled 09/26/2018 10/26/2019 1 1 Encounter Details Date Type Department Care Team (Late st Contact Info) Description 09/26/2018 Prep for Procedure [facility] [place] [address] [id number] Hortensia Hunt APNP [address] [place] [phone] Social History Tobacco Use Types Packs/Day Years [...] Information Value Date Recorded Sex Assigned at Female 02/10/2025 8:09 AM CDT Legal Sex Female 4:34 PM CDT Gender Identity Not on file Sexual Orientation Not on file Occupation Industry Job Start Date Job End Date Registered Nurse Not on file Not on file Not on file documented as of this encounter Plan of Treatment Upcoming Encounters Date Type Department Care Team (Latest Contact Info) Description 03/16/2025 8:20 AM CDT Hospital Encounter [facility] [place] [address] [id number] Sharlene Bear MD [facility] [address] [place] [address] 03/16/2025 8:20 AM CDT - 03/16/2025 8:40 AM CDT Surgery [facility] [place] [address] [id number] Sharlene Bear MD [facility] [address] [place] [address] BLOCK [facility]IAL BRAN[facility] CERVICAL [id number] #[id number] Scheduled Procedures Name Priority Associated Diagnoses Date/Ti de BLOCK MEDIAL BRANCH CERVICAL Cervical spondylosis Facet arthropathy, cervical 03/16/2025 8:20 AM CDT documented as of this encounter Visit Diagnoses Diagnosis Facet arthropathy, cervical- Primary Cervical spondylosis without myelopathy Cervical spondylosis Cervical spondylosis without myelopathy Facet arthropathy, cervical Cervical spondylosis without myelopathy documented in this encounter Care Teams Inside Steward/Stewardess Relationship Specialty Start Date End Date Samanta Alvarenga PA [address] [place] [address] PCP - General 08/29/18 documented as of this encounter
--- OUTSIDE RECORDS SUMMARY | 2025-03-11 00:10 | XMS_ITS | Patient Health Record ---
Author Organization [employer] Address [address] Garcia. [address] [place] [address] Care Team Providers Care Allergist/Immunologist Name Role Phone Samanta Alvarenga Primary Care Provider Unavailab alice Laz Muñiz Unavailable [phone] Allergies Allergen (clinical drug ingredient) Drug/Non Drug [...] Status Risk Notes Problem Generalized abdominal pain (288578363) Generalized abdominal pain (R10.84) Active confirmed Maggy [...] SIBO, and others. Problem Nausea and vomiting (04802294) Nausea and vomiting (R11.2) Active confirmed Plan Of Treatment Pending Test Test Name Order Date Upper Endoscopy 02/07/2023 Insurance Providers Payer Name Payer Address Payer Phone Subscriber Number Group Number Insured Name Patient Relationship to Insured Coverage Start Date Coverage End Date Blue Access PPO E2 [address] [place] [address] [id number] Maggy Rodriguez Self - patient is the insured Medical (General) History Surgical History Surgery Date(Month/Year) Removal of Ovary
--- OUTSIDE RECORDS SUMMARY | 2025-03-11 00:10 | XMS_ITS | Clinical Summary ---
Author Organization [facility] Address Formerly [facility], later [facility] [place] [address] Care Team Providers Care Nitroglycerin Distributor Name Role Phone Samanta Alvarenga Primary Care Provider [phone] Allergies Active Allergy Reactions Criticality Noted Date [...] Encounters Date Type Department Care Team Description 02/10/2025 9:00 AM CDT - 02/10/2025 9:20 AM CDT Surgery [facility] [place] [address] [id number] Sharlene Bear MD BLOCK MEDIAL BRANCH CERVICAL-C4, 5, 6 02/10/2025 8:10 AM CDT - 02/10/2025 9:03 AM CDT Hospital Encounter [facility] [place] [address] [id number] Sharlene Bear MD Discharge Disposition: Home or Self Care (Routine Discharge) 02/10/2025 Telephone [facility] [place] [address] [id number] Lisbeth Whitaker RN Follow Up Call 02/10/2025 Travel 01/07/2025 Prep for Procedure [facility] [place] [address] [id number] Leonora Ace CNP from Last 3 Months [...] Sign Reading Time Taken Comments Blood Pressure 113/74 02/10/2025 8:47 AM CDT Pulse 70 02/10/2025 8:47 AM CDT Temperature 36.5 C (97.7 F) 02/10/2025 8:25 AM CDT Respiratory Rate 20 02/10/2025 8:47 AM CDT Oxygen Saturation 100% 02/10/2025 8:47 AM CDT Inhaled Oxygen Concentration - - Weight 55.2 kg (121 lb 12.8 oz) 02/10/2025 8:25 AM CDT Height 157.5 cm (5' 2 ) 02/10/2025 8:25 AM CDT Body Mass Index 22.28 02/10/2025 8:25 AM CDT Plan of Treatment Upcoming Encounters Date Type Department Care Team (Latest Contact Info) Description 03/16/2025 8:20 AM CDT Hospital Encounter [facility] [place] [address] [id number] Sharlene Bear MD Three [facility] [address] [place] [phone] 03/16/2025 8:20 AM CDT - 03/16/2025 8:40 AM CDT Surgery [facility] [place] [address] [id number] Sharlene Bear MD Three [facility] [address] [place] [address] BLOCK MEDIAL BRANCH CERVICAL [id number] #2 Scheduled Procedures Name Priority Associated Diagnoses Date/Ti me BLOCK MEDIAL BRANCH CERVICAL Cervical spondylosis Facet arthropathy, cervical 03/16/2025 8:20 AM CDT Health Maintenance Due Date Last Done Comments Cervical Cancer Screening Pa p Smear (Age 30 to 64) Every 3 Years 1979 Colorectal Cancer Screening Colonoscopy (10 Years) 1979 Annual Physical 1982 Hepatitis C 1997 DTaP, Tdap and Td Vaccines ( 1 - Tdap) 1998 Hepatitis B Vaccines (1 of 3 - 19+ 3-dose series) 1998 Cervical Cancer Screening Pa p with HPV Testing (Age 30 to 64) Every 5 Years 2009 Cervical Cancer Screening wi th HPV 2009 Mammogram Screening 2019 COVID-19 Vaccine (3 - 2023-2 5 season) 2024 12/04/2020, 11/11/2020 HPV Vaccines Aged Out No longer eligi ble based on patient's age to complete this topic Meningococcal B Vaccine Aged Out No l onger eligible based on patient's age to complete this topic Meningococcal Vaccine Aged Out No josue darrick eligible based on patient's age to complete this topic Pneumococcal Vaccine: Pediatrics (0 to 5 Years) and At-Risk Patients (6 to 49 Years) Aged Out No longer eligible b ased on patient's age to complete this topic RSV Immunizations Under 20 Months Aged Out No longer eligible b ased on patient's age to complete this topic Procedures Procedure Name Priority Date/Time Associated Diagnosis Comments INJ DX OR THERAPUTIC AGENT JOINT W IMAGE G 02/10/2025 8:38 AM CDT Cervical spondylosis XR [facility] Today 02/10/2025 8:18 AM CDT from Last 3 Months Results * XR PA[facility] C-ARM (02/10/2025 8:18 AM CDT) Narrative Radiology, Technologist - 02/10/2025 8:18 AM CDT This report does not contain a radiologist's interpretation. Please review associated procedure and/or operative report. Sharlene Bear MD GENERAL IMAGING Final Result from Last 3 Months Insurance [facility] Care Teams Nitroglycerin Distributor Relationship Specialty Start Date End Date Samanta Alvarenga PA [address] [place] [address] PCP - General 08/29/18
--- OUTSIDE RECORDS SUMMARY | 2025-03-11 00:10 | XMS_ITS | Clinical Summary ---
Author Organization [facility] Address [address] [place] [address] Phone Care Team Providers Care Bulk Station Agent Name Role Phone Unavailable Primary Care Provider [...] Encounters Date Type Department Care Team Description 02/11/2025 External Device Data STL ABSTRACTION Provider, Abstract 02/04/2025 External Device Data ST[facility] ABSTRACTION Provider, Abstract 02/03/2025 External Device Data ST[facility] ABSTRACTION Provider, Abstract 01/31/2025 External Device Data STL ABSTRACTION Provider, Abstract 01/31/2025 External Device Data STL ABSTRACTION Provider, Abstract 01/28/2025 External Device Data STL ABSTRACTION Provider, Abstract 01/14/2025 External Device Data STL ABSTRACTION Provider, Abstract 01/06/2025 External Device Data STL ABSTRACTION Provider, Abstract 12/18/2024 External Device Data ST[facility] ABSTRACTION Provider, Abstract from Last 3 Months Immunizations Immunization Administration Dates Next Due (Web and Rank)(12 YR UP) COVID-19 VACCINE - EMERGENCY USE AUTHORIZATION, MRNA, [id number]) 30 MCG/0.3 ML IM SUSP 12/04/2020,11/11/2020 INFLUENZA [...] Comments Blood Pressure 124/76 10/25/2017 9:30 AM MACHINE TOOL ELECTRICIAN Pulse - - Temperature - - Respiratory Rate - - Oxygen Saturation - - Inhaled Oxygen Concentration - - Weight 54.4 kg (120 lb) 10/25/2017 9:30 AM MACHINE TOOL ELECTRICIAN Height 157.5 cm (5' 2 ) 10/25/2017 9:30 AM MACHINE TOOL ELECTRICIAN Body Mass Index 21.95 10/25/2017 9:30 AM MACHINE TOOL ELECTRICIAN Plan of Treatment Health Maintenance Due Date Last Done Comments DTAP/TDAP/TD VACCINES (1 - Tdap) 1998 HEPATITIS B VACCINES (1 of 3 - 19+ 3-dose series) 1998 HPV/Cotest (21-29) 2000 PAP SMEAR 2000 CERVICAL CANCER SCREENING 2009 HPV/Cotest (30-65) 2009 PAP SMEAR 2009 BREAST CANCER SCREENING 2019 COLORECTAL SCREENING 2024 Colorectal Cancer Screening 2024 FIT-DNA Q 3 years 2024 FIT/FOBT Q 1 year 2024 Flex Sig/CT Colonography Q 5 years 2024 COVID-19 Vaccine ( season) 2024 12/04/2020, 11/11/2020 INFLUENZA VACCINE Completed 07/25/2024, , 09/03/2020, Additional history exists HPV VACCINES Aged Out No longer eligi ble based on patient's age to complete this topic Insurance [employer] Member Subscriber Plan / Payer (Ef fective 2024-Present) Name:Maggy Rodriguez Relation to Subscriber:Self Name:Maggy Rodriguez Subscriber ID:Not on file Payer ID:Not on file Group ID:[id number] Type:RX Commercial Address: [address]
--- OUTSIDE RECORDS SUMMARY | 2025-03-11 00:10 | XMS_ITS | Continuity of Care Document ---
Author Organization [facility] Address [address] [facility] [address] [place] [address] Phone Care Team Providers Care Basic Combatant Swimmer Name Role Phone MarilusameerRajaniMalachi Unavailable Unavailable Procedures Procedure Date Eye Exam, New Patient Advance Directives Directive Yes / No Effective Date File Name No Information Encounters Encounter Description Practice Location Reason(s) For Visit Diagnoses Date Provider Providers Copied on Encounter [facility], [address], [place], [place], [id number], [place] tel:[phone] [facility] No Information [address] [facility] [address], [place], [address], [place]. tel:[phone] Family History Family Member Type Diagnosis Age At Onset No Information Payers Payer name Insurance type Covered libertarian ID Authoriza tiamber(s) BCBS [place] Out Of [place] [id number] Social History Type Description Quantity Date Captured [...]
--- OUTSIDE RECORDS SUMMARY | 2025-03-11 00:10 | XMS_ITS | Data Portability ---
Author Organization [facility] [employer], Main Office Address [address] [place] [address] Assessment No assessment recorded. Plan of Treatment Reminders Order Date Submit Date Provider Last Modified By Organization Details Last Modified Time Details Appointments None recorded. Lab None recorded. Referral pain management referral 2022 023 elizabeth Bear MD, 3 [facility] [address], [place], [address], 4 09:39:58 pain management referral 2022 023 MATTEO Bear MD, 3 [facility] [address], [place], [address], 3 16:32:29 Procedures None recorded. Surgeries None recorded. Imaging US, buttock 2022 023 [email or web address] [facility], 2022 Sly Schroeder, [facility] [address], [place], [address], 4 09:40:03 Medication Orders Kenalog 40 mg/mL suspension for injection 2022 023 [email or web address], [address] [place] [address] Skinny Schroeder, [place], [id number], 3 13:12:02 Patient TargetsNo targets recorded. Patient [...] pg/mL will have sympt oms. Not Available [employer] [facility] [address] [place] [address], [address], 08/25/2022 12:25:53 08/24/20 22 08/25/2022 VITAM IN B12/F OLATE , SERUM PANEL folate, serum 20.4 NG/mL normal Refer ence Range Low: <3.4 Borde rline : 3.4-5 .4 Laurence l: >5.4 Not Available [employer] [address], [address], 08/25/2022 12:25:53 08/24/20 22 08/25/2022 CBC (INCL UDES DIFF/ PLT) white blood cell count 6.1 thous and/u L 3.8-10 .8 normal Not Available [employer] [facility] [address] [place], [address], 08/25/2022 12:25:52 08/24/20 22 08/25/2022 CBC (INCL UDES DIFF/ PLT) red blood cell count 4.35 lluvia on/uL 3.80-5 .10 normal Not Available [address], [address], 08/25/2022 12:25:52 08/24/20 22 08/25/2022 CBC (INCL UDES DIFF/ PLT) hemoglobin 13.4 g/dL 11.7-1 5.5 normal Not Available [address], [address], 08/25/2022 12:25:52 08/24/20 22 08/25/2022 CBC (INCL UDES DIFF/ PLT) hematocrit 41.5 % 35.0-4 5.0 normal Not Available [address], [address], 08/25/2022 12:25:52 08/24/20 22 08/25/2022 CBC (INCL UDES DIFF/ PLT) MCV 95.4 fL 80.0-1 00.0 normal Not Available [address], [address], 08/25/2022 12:25:52 08/24/20 22 08/25/2022 CBC (INCL UDES DIFF/ PLT) MCH 30.8 pg 27.0-3 3.0 normal Not Available [address], [address], 08/25/2022 12:25:52 08/24/20 22 08/25/2022 CBC (INCL UDES DIFF/ PLT) MCHC 32.3 g/dL 32.0-3 6.0 normal Not Available [address], [address], 08/25/2022 12:25:52 08/24/20 22 08/25/2022 CBC (INCL UDES DIFF/ PLT) RDW 11.9 % 11.0-1 5.0 normal Not Available [address], [address], 08/25/2022 12:25:52 08/24/20 22 08/25/2022 CBC (INCL UDES DIFF/ PLT) platelet count 287 thous and/u L 140-40 0 normal Not Available [address], [address], 08/25/2022 12:25:52 08/24/20 22 08/25/2022 CBC (INCL UDES DIFF/ PLT) MPV 10.7 fL 7.5-12 .5 normal Not Available [address], [address], 08/25/2022 12:25:52 08/24/20 22 08/25/2022 CBC (INCL UDES DIFF/ PLT) absolute neutrophils 3947 cells /uL 1500-7 800 normal Not Available [address], [address], 08/25/2022 12:25:52 08/24/20 22 08/25/2022 CBC (INCL UDES DIFF/ PLT) absolute lymphocytes 1476 cells /uL 850-39 00 normal Not Available [address], [address], 08/25/2022 12:25:52 08/24/20 22 08/25/2022 CBC (INCL UDES DIFF/ PLT) absolute monocytes 519 cells /uL 200-95 0 normal Not Available [address], [address], 08/25/2022 12:25:52 08/24/20 22 08/25/2022 CBC (INCL UDES DIFF/ PLT) absolute eosinophils 110 cells /uL 15-500 normal Not Available [address], [address], 08/25/2022 12:25:52 08/24/20 22 08/25/2022 CBC (INCL UDES DIFF/ PLT) absolute basophils 49 cells /uL 0-200 normal Not Available [address], [place], [address], 08/25/2022 12:25:52 08/24/20 22 08/25/2022 CBC (INCL UDES DIFF/ PLT) neutrophils 64.7 % normal Not Available [facility] [address], [address], 08/25/2022 12:25:52 08/24/20 22 08/25/2022 CBC (INCL UDES DIFF/ PLT) lymphocytes 24.2 % normal Not Available [facility] [address], [address], 08/25/2022 12:25:52 08/24/20 22 08/25/2022 CBC (INCL UDES DIFF/ PLT) monocytes 8.5 % normal Not Available [facility] [address], [address], 08/25/2022 12:25:52 08/24/20 22 08/25/2022 CBC (INCL UDES DIFF/ PLT) eosinophils 1.8 % normal Not Available [facility] [address], [address], 08/25/2022 12:25:52 08/24/20 22 08/25/2022 CBC (INCL UDES DIFF/ PLT) basophils 0.8 % normal Not Available [facility] [address], [address], 08/25/2022 12:25:52 08/24/20 22 08/25/2022 COMPR EHENS SVETLANA METAB OLIC PANEL glucose 99 mg/dL 65-99 normal Fasti ng refer ence inter jose eduardo Not Available [address], [address], 08/25/2022 12:25:52 08/24/20 22 08/25/2022 COMPR EHENS SVETLANA METAB OLIC PANEL urea nitrogen (BUN) 9 mg/dL 7-25 normal Not Available [facility] [address], [address], 08/25/2022 12:25:52 08/24/20 22 08/25/2022 COMPR EHENS SVETLANA METAB OLIC PANEL creatinine 0.74 mg/dL 0.50-0 .99 normal Not Available [address], [address], 08/25/2022 12:25:52 08/24/20 22 08/25/2022 COMPR EHENS [...] kdoqi /gfr% 5Fcal culat or Not Available [address], [address], 08/25/2022 12:25:52 08/24/20 22 08/25/2022 COMPR EHENS SVETLANA METAB OLIC PANEL BUN/creatini ne ratio not applic able (calc ) 6-22 Not Available [address], [address], 08/25/2022 12:25:52 08/24/20 22 08/25/2022 COMPR EHENS SVETLANA METAB OLIC PANEL sodium 137 mmol/ L 135-14 6 normal Not Available [address], [address], 08/25/2022 12:25:52 08/24/20 22 08/25/2022 COMPR EHENS SVETLANA METAB OLIC PANEL potassium 4.3 mmol/ L 3.5-5. 3 normal Not Available [address], [address], 08/25/2022 12:25:52 08/24/20 22 08/25/2022 COMPR EHENS SVETLANA METAB OLIC PANEL chloride 103 mmol/ L 98-110 normal Not Available [address], [address], 08/25/2022 12:25:52 08/24/20 22 08/25/2022 COMPR EHENS SVETLANA METAB OLIC PANEL carbon dioxide 27 mmol/ L 20-32 normal Not Available [address], [address], 08/25/2022 12:25:52 08/24/20 22 08/25/2022 COMPR EHENS SVETLANA METAB OLIC PANEL calcium 9.5 mg/dL 8.6-10 .2 normal Not Available [address], [address], 08/25/2022 12:25:52 08/24/20 22 08/25/2022 COMPR EHENS SVETLANA METAB OLIC PANEL protein, total 6.7 g/dL 6.1-8. 1 normal Not Available [address], [address], 08/25/2022 12:25:52 08/24/20 22 08/25/2022 COMPR EHENS SVETLANA METAB OLIC PANEL albumin 4.1 g/dL 3.6-5. 1 normal Not Available [address], [address], 08/25/2022 12:25:52 08/24/20 22 08/25/2022 COMPR EHENS SVETLANA METAB OLIC PANEL globulin 2.6 g/dL_ (calc ) 1.9-3. 7 normal Not Available [address], [address], 08/25/2022 12:25:52 08/24/20 22 08/25/2022 COMPR EHENS SVETLANA METAB OLIC PANEL albumin/glob ulin ratio 1.6 (calc ) 1.0-2. 5 normal Not Available [facility] [address] [address], [place], [address], 08/25/2022 12:25:52 08/24/20 22 08/25/2022 COMPR EHENS SVETLANA METAB OLIC PANEL bilirubin, total 0.6 mg/dL 0.2-1. 2 normal Not Available [address], [address], 08/25/2022 12:25:52 08/24/20 22 08/25/2022 COMPR EHENS SVETLANA METAB OLIC PANEL alkaline phosphatase 69 U/L 31-125 normal Not Available [facility] [address], [address], 08/25/2022 12:25:52 08/24/20 22 08/25/2022 COMPR EHENS SVETLANA METAB OLIC PANEL AST 13 U/L 10-30 normal Not Available [address], [address], 08/25/2022 12:25:52 08/24/20 22 08/25/2022 COMPR EHENS SVETLANA METAB OLIC PANEL ALT 8 U/L 6-29 normal Not Available [address], [address], 08/25/2022 12:25:52 08/24/20 22 08/25/2022 TSH+F REE T4 TSH 1.14 mIU/L normal Refer ence Range > or = 20 Years 0.40- 4.50 Pregn ilsa Range s First trime ster 0.26- 2.66 Secon d trime ster 0.55- 2.73 Third trime ster 0.43- 2.91 Not Available [address], [address], 08/25/2022 12:25:51 08/24/20 22 08/25/2022 TSH+F REE T4 T4, free 1.1 NG/dL 0.8-1. 8 normal Not Available [address], [address], 08/25/2022 12:25:51 08/24/20 22 08/25/2022 IRON, TIBC AND MINA TIN PANEL iron, total 196 mcg/d L 40-190 high Not Available [address], [address], 08/25/2022 12:25:50 08/24/20 22 08/25/2022 IRON, TIBC AND MINA TIN PANEL iron binding capacity 439 mcg/d L_(ca lc) 250-45 0 normal Not Available [address], [address], 08/25/2022 12:25:50 08/24/20 22 08/25/2022 IRON, TIBC AND MINA TIN PANEL % saturation 45 %_(ca lc) 16-45 normal Not Available [address], [address], 08/25/2022 12:25:50 08/24/20 22 08/25/2022 IRON, TIBC AND MINA TIN PANEL ferritin 12 NG/mL 16-232 low Not Available [address], [address], 08/25/2022 12:25:50 09/08/20 22 09/07/2022 XR, hip + pelvi s, unila teral , 2 or 3 view No observ ation record ed. [id number] [facility] ([facility]aging) [address], [place], [address], 01/24/2023 17:16:26 01/15/20 23 01/12/2023 RF, upper gastr ointe keagan l tract , w/ contr ast PO No observ ation record ed. [email or web address] [facility] 2022 Sly Sch[address], [place], [address], 02/05/2023 10:01:26 01/15/20 23 01/12/2023 US, abdom en No observ ation record ed. [email or web address] [facility] [address], [place], [address], 02/05/2023 10:01:27 02/14/20 23 02/12/2023 upper endos copy proce dure (EGD) (PROC ) No observ ation record ed. [email or web address] Not Available 2022 14:21:08 08/24/20 23 08/24/2023 MRI, cervi lashonda spine , w/o contr ast No observ ation record ed. [facility] [place] [address] Imaging 2022 Sly [address], [place], [address], 11/27/2023 17:37:36 Result Notes None recorded. Problems Name Problem SNOMED Code Status Onset Date Resolution Date Notes Provider Name and Address Organization Details Recorded Time Dysfunctio n of left eustachian tube 9125644836241 106 Active 2021 Not Available [employer] 3 17:14:33 Injury of ankle 639579454 Active Not Available [facility] 3 17:14:33 Lumbar radiculopa thy 987089193 Active 2021 Not Available [facility] 3 17:14:33 Cellulitis of knee 90874187 Active Not Available [facility] 3 17:14:33 Indigestio n 738565484 Active Not Available [facility] 3 17:14:33 Generalize d headache 264040786 Active Not Available [facility] 3 17:14:34 Insomnia 991982591 Active Not Available [facility] 3 17:14:34 Lumbago with sciatica 758360253 Active 2021 Not Available [facility] 3 17:14:34 Abdominal pain 81012234 Active 2022 Not Available [facility] 3 17:14:34 Sore throat 881659207 Active Not Available [facility] 3 17:14:34 Malaise and fatigue 369398598 Active 2021 Not Available [facility] 3 17:14:34 Acute low back pain 006812688 Active 2021 Not Available [facility] 3 17:14:34 Pain of left hip joint 5926383228938 00 Active 2021 Not Available [facility] 3 17:14:34 Acute pharyngiti s 764373696 Active Not Available [facility] 3 17:14:35 Major depressive disorder 547124262 Active 2021 Not Available [facility] 3 17:14:35 Fever 416472155 Active Not Available [facility] 3 17:14:35 Cervical spondylosi s 455254935 Active Not Available [facility] 3 17:14:35 Cervical arthritis 244364651 Active Not Available [facility] 3 17:14:35 Paronychia of toe 841775173 Active Not Available [facility] 3 17:14:35 Vertigo 600829283 Active 2021 Not Available [facility] 3 17:14:35 Nausea 198422032 Active 2022 Not Available [facility] 3 17:14:36 Dyssomnia 83539009 Active 2021 Not Available [facility] 3 17:14:36 Viral syndrome 933940014 Active Not Available [facility] 3 17:14:36 Change in stool caliber 75234182 Active Not Available [facility] 3 17:14:36 Muscle strain 76764323 Active Not Available [facility] 3 17:14:36 Charleyhor se 90769746 Active Not Available [facility] 3 17:14:36 Joint pain 86756720 Active Not Available [facility] 3 17:14:37 Degenerati on of cervical interverte bral disc 15503947 Active 2021 Not Available [facility] 3 17:14:37 Incontinen ce of feces 56939318 Active 2021 Not Available [facility] 3 17:14:37 Epigastric pain 26938245 Active Not Available [facility] 3 17:14:37 Perineural cyst 63135544 Active 2021 Not Available [facility] 3 17:14:37 Neck pain 50197692 Active 2021 Not Available [facility] 3 17:14:37 Upper abdominal pain 17507136 Active 2022 Not Available [facility] 3 17:14:38 Fatigue 59464243 Active Not Available [facility] 3 17:14:38 Mixed anxiety and depressive disorder 808116349 Active 2022 ELISE Cummings null, [employer] 3 14:37:25 Pain in sacrum 7111935652 Active 2022 DESIREE Meehan [address] [facility], [place] [address], [place], [address] , [employer] 3 11:35:05 Mass of buttock Active 2022 DESIREE Meehan [address] [facility], [facility] [address], [place], [address] , [employer] [facility] [employer] 3 11:37:23 Problem Notes None recorded. Procedures Surgical History Date Name Laterality Status Provider Name and Address Organization Details Recorded Time 07/03/2022 other completed Not Available [facility] 01/24/2023 17:13:07 07/17/2017 other completed Not Available [facility] 01/24/2023 17:13:07 other completed Not Available [facility] 11/2022 17:13:07 other completed Not Available [facility] 11/2022 17:13:07 other completed Not Available [facility] 11/2022 17:13:07 other completed Not Available [facility] 11/2022 17:13:07 Imaging Results Imaging Date Name Status LastModified by Organization Details LastModified Time 01/12/2023 RF, upper gastrointestinal tract, w/ contrast PO completed [email or web address] [facility] [address], [place], [address], 02/05/2023 10:01:26 01/12/2023 US, abdomen completed [email or web address] [facility] [address] [place] [address] [address], [place], [address], 02/05/2023 10:01:27 09/07/2022 XR, hip + pelvis, unilateral, 2 or 3 view completed [id number] [facility] ([facility]) [address] [facility] [address], [place], [address], 01/24/2023 17:16:26 02/12/2023 upper endoscopy procedure (EGD) (PROC) [facility] not available 2023 14:21:08 08/24/2023 MRI, cervical spine, w/o contrast completed [email or web address] [facility] [address], [place], [address], 11/27/2023 17:37:36 Procedure Notes None recorded. Medical Equipment None Reported. Allergies Allergen ID Allergen Name Allergen Category Reaction Reaction Severity Criticality Documentation Date Start Date Code Code System Note Provider Name and Address Organization Details Recorded Time 84243 vancomyci n medicatio n itching severe Not available 01/24/2023 30657 RxNorm also skin turns red Not Available [facility] 17:16:22 19981 Product containin g penicilli n (product) medicatio n hives Not available Not available 01/24/2023 89134 8001 SNOMED Not Available [facility] 3 17:16:23 26405 latex environme nt,medica tion rash Not available Not available 01/24/2023 82412 91 RxNorm Not Available [facility] 17:16:23 85131 Keflex medicatio n hives Not available Not available 01/24/2023 56020 7 RxNorm Not Available [facility] 17:16:23 Medications Name Sig Start Date [...] mL by injectio n route. 2022 active [facility]#[id number] Not Available Not Available Not Available [...] Not Available No t Available Ariella 0.25 mg-0.035 mg tablet TAKE ONE TABLET BY MOUTH EVERY [...] 09/18/2022 22.9 kg/m2 157.48 cm 97.5 [degF] 27007.05 g Not Available [facility] 01/24/2023 17:13:41 Date Recorded Body mass index (BMI) Body height Body temperature Body weight Provider Name and Address Organization Details Last Updated DateTime 11/07/2022 23 kg/m2 157.48 cm 97.8 [degF] 58493.64 g Not Available [facility] 01/24/2023 17:13:41 Date Recorded Body mass index (BMI) Body height Oxygen saturation Oxygen saturation in Arterial blood by Pulse oximetry Heart rate Body temperature Body weight Systolic blood pressure Diastolic blood pressure Provider Name and Address Organization Details Last Updated DateTime 3 23 kg/m2 157.48 cm 98 % 98 % 76 /min 98.1 [degF] 62283.6 4 g 112 mm[Hg] 70 mm[Hg] Not Available [facility] 17:13:30 Date Recorded Body height Body temperature Body mass index (BMI) Body weight Respiratory rate Oxygen saturation Oxygen saturation in Arterial blood by Pulse oximetry Heart rate Systolic blood pressure Diastolic blood pressure Provider Name and Address Organization Details Last Updated DateTime 3 157.48 cm 97.5 [degF] 23.6 kg/m2 40146.4 2 g 16 /min 97 % 97 % 78 /min 122 mm[Hg] 80 mm[Hg] ELISE Cummings [employer] [facility] [employer] [facility] 3 09:58:48 Date Recorded Systolic blood pressure Diastolic blood pressure Provider Name and Address Organization Details Last Updated DateTime 02/05/2023 100 mm[Hg] 72 mm[Hg] DESIREE Meehan [address] [place] [address], [facility] [address], [place], [address], [employer] [facility] [employer] [facility] 02/05/2023 10:20:38 Date Recorded Body height Body temperature Body mass index (BMI) Body weight Respiratory rate Oxygen saturation Oxygen saturation in Arterial blood by Pulse oximetry Heart rate Systolic blood pressure Diastolic blood pressure Provider Name and Address Organization Details Last Updated DateTime 3 157.48 cm 97.4 [degF] 22.9 kg/m2 55958.0 5 g 16 /min 98 % 98 % 80 /min 102 mm[Hg] 60 mm[Hg] ELISE Cummings [place] - [facility] 3 11:00:56 Social History Question Answer Notes LastModified by Organizat ion Details LastModified Time Tobacco Smoking Status Never Smoker Not Available [facility] 01/24/2023 17:12:59 What Is Your Level Of Alcohol Consumption? Occasional [id number] Information not available 01/24/2023 What Is Your Level Of Caffeine Consumption? None [id number] Information not available 01/24/2023 How Much Tobacco Do You Chew? None [id number] Information not available 01/24/2023 In The 14 Days Before Symptom Onset, Have You Had Close Contact With A Laboratory-confir med COVID-19 While That Case Was Ill? No [id number] Information not available 01/24/2023 In The 14 Days Before Symptom Onset, Have You Had Close Contact With A Person Who Is Under Investigation For COVID-19 While That Person Was Ill? No [id number] Information not available 01/24/2023 Are You Currently Employed? Yes [email or web address] Information not available 02/02/2023 What Type Of Diet Are You Following? REGULAR [id number] 0101 Information not available 01/24/2023 Which Illicit Or Recreational Drugs Have You Used? None [id number] Information not available 01/24/2023 Do You Or Have You Ever Used E-cigarettes Or Vape? Never Used Electronic Cigarettes [id number] Information not available 01/24/2023 What Is Your Occupation? Registered Nurses [id number] Information not available 01/24/2023 Have There Been Any Changes To Your Family Or Social Situation? No [id number] [id number] Information not available 01/24/2023 Do You Use Insect Repellent Routinely? No [id number] Information not available 01/24/2023 What Is Your Relationship Status? [id number] Information not available 01/24/2023 Do You Use Your Seat Belt Or Car Seat Routinely? Yes MIGRATION.[id number] 7949 Information not available 01/24/2023 Do You Have Smoke And Carbon Monoxide Detectors In Your Home? Yes MIGRATION.499204 5670 Information not available 01/24/2023 Do You Or Have You Ever Used Smokeless Tobacco? Never Used Smokeless Tobacco MIGRATION.[id number] 0119 Information not available 01/24/2023 How Much Tobacco Do You Smoke? No MIGRATION.307892 4396 Information not available 01/24/2023 Do You Use Any Illicit Or Recreational Drugs? No MIGRATION.[id number] 8339 Information not available 01/24/2023 Do You Use Sunscreen Routinely? Yes MIGRATION.557855 0376 Information not available 01/24/2023 Have You Recently Traveled Abroad? No MIGRATION.072345 9495 Information not available 01/24/2023 Do You Have Any Dietary Restrictions? No MIGRATION.225033 9456 Information not available 01/24/2023 Do You Or Have You Ever Used Any Other Forms Of Tobacco Or Nicotine? No MIGRATION.014402 4944 Information not available 01/24/2023 Sex: Unknown Functional Status Question Answer Note LastModified by Organizat ion Details LastModified Time What is your exercise level? Moderate [id number] Information not available 01/24/2023 Mental Status None recorded. Family History Relationship Description Onset Age of this Age Resolved Age Notes LastModified by Organization Details LastModified Time Father Coronary arterioscler osis [id number] Not available 01/24/2023 17:13:08 Notes:NO ENT Medical History Condition Response ARTHRITIS Y SKIN PROBLEMS Y DIABETES, TYPE N HIGH CHOLESTEROL / HYPERLIPIDEMIA N BACK / NECK PROBLEMS Y HYPERTENSION N URINARY/BLADDER/KIDNEY PROBLEMS Y Gynecological History Statement/Question Response Abnormal Pap N [...] virus, quadrivalent, preservative 0 completed Not Available [facility] 01/24/2023 17:16:18 influenza, unspecified formulation 6 completed Not Available [facility] 01/24/2023 17:16:18 Influenza, split virus, quadrivalent, preservative 9 completed Not Available [facility] 01/24/2023 17:16:18 influenza, unspecified formulation 5 completed Not Available [facility] 01/24/2023 17:16:19 Influenza, split virus, quadrivalent, PF 2 completed Not Available [facility] 01/24/2023 17:16:20 Influenza, split virus, quadrivalent, PF 8 completed Not Available [facility] 01/24/2023 17:16:20 Past Encounters Encounter ID Performer Location Encounter Start Date Encounter Closed Date Diagnosis/Indication Diagnosis SNOMED-CT Code Diagnosis ICD10 Code Diagnosis Note [id number] [facility] [place] [address] [place] [address] 04/22/2021 00:00:00 04/22/2021 13:20:24 [id number] [facility] [place] [address] [place] [address] 08/24/2021 00:00:00 08/24/2021 11:04:18 [id number] [facility] [place] [address] [place] [address] 01/31/2022 00:00:00 02/23/2022 16:48:34 [id number] [facility] [place] [address] [place] [address] 06/16/2022 00:00:00 06/24/2022 17:24:51 [id number] [facility] [place] [address] [place] [address] 07/14/2022 00:00:00 07/23/2022 14:17:45 [id number] [facility] [place] [address] [place] [address] 08/08/2022 00:00:00 08/24/2022 20:16:28 [id number] [facility] [place] [address] [place] [address] 09/07/2022 00:00:00 09/24/2022 13:08:47 [id number] [facility] [place] [address] [place] [address] 09/15/2022 00:00:00 09/19/2022 17:09:32 [id number] [facility] [place] [address] [place] [address] 09/18/2022 00:00:00 09/18/2022 11:07:56 [id number] [facility] [place] [address] [place] [address] 11/07/2022 00:00:00 11/07/2022 10:48:16 [id number] [facility] [place] [address] [place] [address] 01/03/2023 00:00:00 01/20/2023 10:07:49 [id number] DESIREE Meehan [facility] [place] [address] [place] [address] 4 02/05/2023 09:53:07 02/05/2023 10:21:41 Adult health examination [id number] Z00.00 annual wellness completed Mixed anxi ety and depressive disorder [id number] F41.8 stable off medication Long-term drug therapy [id number] Z79.899 labs are all UTD [id number] DESIREE Meehan [facility] [place] [address] [place] [address] 07/20/2023 10:52:23 07/20/2023 11:44:06 Pain in sacrum [id number] M54.50 refer to PM for chronic sacral pain after slipping/f alling on rock while hiking a few years ago. kenalog injection given in office that has helped in past. Degenerati on of cervical intervertebral disc 10067114 M50.30 refer back to PM for cervical DDD Mass of buttock [id number] 06 R22.2 pt feels painful nodule in buttock since fall ; she would like u/s completed to evaluate the region. Cervical spondylosis 387 913469 M47.812 underlying hx noted. Health Concerns Section Related Observation LastModified by Organization Detai ls LastModified Time None Recorded Concern Status LastModified by Organization Details LastModified Time None Recorded Advance Directives Directive None Recorded Payers Encounter Date Sequence Insurance Name Policy Number Policy Multani Covered Member ID Multani Member ID Guarantor Name 02/05/2023 1 [place] [id number] Maggy Rodriguez [id number] Maggy Rodriguez 07/20/2023 1 [place] [id number] Maggy Rodriguez [id number] Maggy Rodriguez Notes Date Note Type Note Provider Name and Address Organization Details Recorded Time 01/03/2023 text/html Abdominal PainReported bypatient.Location:[facility] Quality:bloating;cram ping;burning Duration:started:; 09/16 Aggravating Factors:eating Alleviating Factors:nothing gives relief Associated Symptoms:heartburn Other:denies possible Not Available [employer] 01/20/2023 10:07:49 02/05/2023 text/html Anxiety/Depressi onRep orted [...] shortness of breath wellness DESIREE Meehan [address] [address], [place], [address], [employer] 02/23/2023 12:50:00 07/20/2023 text/html Generic HPI TemplateReported bypatient.Notes:Pt states she needs a new referral to go back to PM for neck pain and back pain. She does feel a mass in her lower back/buttock where she had the injury. She noticed it in January and thinks it is getting bigger. DESIREE Meehan [address] [place] [place] [address], [place], [address], [employer] 07/24/2023 22:35:21 OBGyn Episode No OBEpisode recorded.
--- NOTE | 2025-03-11 07:19 | WPDHPUPDATE1 ---
History and Physical Update Update Date/Time: 03/11/25 07:19 History and Physical has been reviewed, including an updated exam of the patient. There are NO changes in the patient's condition. Risks, benefits, and alternatives have been discussed and questions answered. Patient agrees to proceed with procedure.
[2025-03-11] MEDS: LACTATED RINGERS 1,000 ML 30 ML IV CONT ×2 (11:00→13:39)
[2025-03-11] MEDS: ACETAMINOPHEN 500 MG TABLET 1000 MG PO (11:15)
[2025-03-11] MEDS: CELECOXIB 200 MG CAPSULE PO (11:15)
[2025-03-11 11:59] LABS: BEDSIDEPREGUCG Negative (Negative)
--- NOTE | 2025-03-11 12:10 | P.PNAN_ITS ---
Anes - Initial Pre Proc Eval Procedure: Operation Date: 03/11/25 13:30 Proposed Procedures p Left Knee Arthroscopy, Proceed As Indicated - Reese Hill MD Date/Time: 03/11/25 12:10 Surgeon: Reese Hill MD Pre Op Diagnosis: Left Medial Meniscus Tear Patient Data Age: 44 Gender: F Height: 1.57 m Weight: 56.1 kg Last Vital Signs Temp 37.0 C 03/11/25 11:46 Pulse 71 03/11/25 11:46 Resp 16 03/11/25 11:46 BP 95/70 L 03/11/25 11:46 Pulse Ox 100 03/11/25 11:46 O2 Del Method Room Air 03/11/25 11:46 Allergies Allergy/AdvReac Type Severity Reaction Status Date / Time Cephalosporins Allergy Unknown Unknown Verified 03/11/25 11:43 latex Allergy Unknown Unknown Verified 03/11/25 11:43 Penicillins Allergy Unknown Unknown Verified 03/11/25 11:43 Sulfa (Sulfonamide Allergy Unknown Rash Verified 03/11/25 11:43 Antibiotics) vancomycin Allergy Unknown Hives / Verified 03/11/25 11:43 Red Face Home Medications ?Medication ?Instructions ?Recorded ?Confirmed ?Type cholecalciferol (vitamin D3) 50 50 mcg PO DAILY 06/17/24 03/11/25 History mcg (2,000 unit) capsule magnesium aspart,citrate,oxide 400 mg PO DAILY 06/17/24 03/11/25 History chlorhexidine gluconate 4 % 1 applic topical ONCE #237 mL 03/02/25 03/11/25 Rx topical liquid (Hibiclens) Laboratory Tests 03/11/25 11:46 POC Urine HCG, Qual Negative (Negative) Patient hx anesthesia problems: none Family hx anesthesia problems: none Results Review: All pre-operative results and documents have been reviewed as part of the pre- operative evaluation. [facility] Past Medical History Medical History Pes anserinus bursitis of left knee Left knee injury Left knee pain Surgical History Surgical History History of bilateral oophorectomy - [facility] [place] History of hand surgery trigger finger release 1999 Family History Family History Unknown Heart disease Skin cancer Arthritis Social History Social History Smoking status: Never smoker Alcohol intake: current Drinks per week: 1 Substance use: never Living arrangements: with family Occupation/Education: occupation Additional occupation/education comments: [employer] Gender identity (if verbalized by the patient): Female Spiritual care concerns: No Anes - Eval Final PreProcedure Day of Procedure 03/11/25 12:10 Patient weight: normal Heart: regular rate and rhythm Lungs: clear to auscultation Airway: Mallampati scale class 1 Neurological: alert and oriented Last oral intake: >/= 8 hours ASA classification: I Emergent: no Anesthetic plan: proceed Anesthesia type and monitoring: general LMA and standard monitoring Results Review: All pre-operative results and documents have been reviewed as part of the pre- operative evaluation. Informed Consent: The patient's anesthetic plan and its attendant risks and benefits were discussed with the patient/family/POA. Questions were solicited and answers provided to the satisfaction of the patient/family/POA.
[2025-03-11] MEDS: CLINDAMYCIN 900 MG/D5W 50 ML 900 MG/50 ML PIGGYBACK 50 MG IVPB (12:20)
[2025-03-11] MEDS: BUPivacaine HCL 0.5% 10 ML AMP 30 ML INFILTRATE (12:42)
--- NOTE | 2025-03-11 13:41 | W.PM.PROC2 ---
Procedure Note - Detailed Date of Procedure 03/11/25 Pre-op Diagnosis Left Medial Meniscus Tear Post-op Diagnosis Same Procedure Performed LEFT KNEE SCOPE Surgeon Reese Hill MD Anesthesia General Description of Procedure PATIENT WAS TAKEN TO THE OR. LEFT LEG WAS PREPPED AND DRAPED STERILE. TROCARS WERE PLACED IN THE USUAL FASHION. CAMERA WAS INTRODUCED. THERE WAS MINIMAL CHONDROMALACIA TO THE PATELLA FEMORAL JOINT. THERE WAS MODERATE SYNOVITIS IN ALL COMPARTMENTS. THE MEDIAL COMPARTMENT SHOWED CHONDROMALACIA TO THE MEDIAL FEMORAL CONDYLE. A SHAVER WAS USED TO PREFORM A CHONDROPLASTY. THERE WAS A MEDIAL MENISCUS UNDERSURFACE TEAR THAT WAS NEAR FULL THICKNESS. THE TEAR WAS RESECTED WITH A BITER AND A SHAVER DOWN TO A SMOOTH BASE. ABOUT 20% OF THE MENISCUS WAS REMOVED. THE ACL WAS INTACT. THE LATERAL MENISCUS WAS NOT TORN. THE LATERAL COMPARTMENT HAD MINIMAL CHONDROMALACIA. CHONDROPLASTY WAS PREFORMED. THE PATELLO FEMORAL JOINT UNDERWENT MINIMAL CHONDROPLASTY. SYNOVECTOMY WAS PREFORMED IN THE SUPERIOR MEDIAL COMPARTMENT. THE WOUNDS WERE APPROXIMATED WITH 4.0 NYLON. STERILE DRESSING WAS APPLIED. PATIENT WAS EXTUBATED. Estimated Blood Loss 5 Complications No immediate complications Condition Stable Disposition PACU
[2025-03-11] MEDS: fentaNYL CITRATE INJ (*CRX) 100 MCG/2 ML VIAL 25 MCG IV PUSH ×4 (13:51→14:00)
[2025-03-11] MEDS: oxyCODONE HCL (*CRX) 5 MG TAB IR PO (14:41)
== END 2025-03-11 15:27 | disposition home or self-care (01) ==
PROVIDERS: PCP Physician Assistant; Visit Provider Orthopaedic Surgery
PROC: (CPT 29870; principal; 2025-03-11 13:30)
DX: S83.242A Other tear of medial meniscus, current injury, left knee, initial encounter (principal); M94.262 Chondromalacia, left knee; M65.862 Other synovitis and tenosynovitis, left lower leg; X58.XXXA Exposure to other specified factors, initial encounter; Z98.890 Other specified postprocedural states; Z84.0 Family history of diseases of the skin and subcutaneous tissue; Z82.49 Family history of ischemic heart disease and other diseases of the circulatory system
CPT/HCPCS: 29881; 29876; A9270; J1100; J2003; J2250; J2405; J2704; J3010; J7120

== ENCOUNTER 2025-09-21 09:22 | Outpatient (CLI) | payer OTHER, SELFPAY ==
--- OUTSIDE RECORDS SUMMARY | 2025-09-21 10:08 | XMS_ITS | Encounter Summary ---
Author Organization [facility] Address [address] [place] [address] Care Team Providers Care Coordinator Mining Products Name Role Phone Samanta Alvarenga Primary Care Provider [phone] Reason for Referral * Surgical (Routine) - Canceled Specialty Diagnoses / Procedures Referred By Owen t Referred To Contact Diagnoses Facet arthropathy, cervical Procedures Case request operating room: BLOCK MEDIAL BRANCH CERVICAL C4, C5, C6 Hortensia Hunt NP [address] [facility] [address] [place] [address] Phone: tel: [phone] fax: Referral ID Status Reason Start Date Expiration Date V isits Requested Visits Authorized [id number] Canceled 09/26/2018 10/26/2019 1 1 Encounter Details Date Type Department Care Team (Late st Contact Info) Description 09/26/2018 Prep for Procedure [facility] [place] [address] [phone] Hortensia Hunt NP [address] [facility] [address] [place] [phone] (Work) Social History Tobacco Use Types Packs/Day Years [...] on file documented as of this encounter Visit Diagnoses Diagnosis Facet arthropathy, cervical- Primary Cervical spondylosis without myelopathy documented in this encounter Care Teams Coordinator Mining Products Relationship Specialty Start Date End Date Samanta Alvarenga PA PCP - General 08/29/18 documented as of this encounter
--- OUTSIDE RECORDS SUMMARY | 2025-09-21 10:08 | XMS_ITS | Encounter Summary ---
Author Organization [facility] Address [address] [place] [address] Care Team Providers Care Credit Union Examiner Name Role Phone Munira Lopez MD Primary Care Provider [phone] Samanta Pace Primary Care Pr ovider Encounter Details Date Type Department Care Team (Late st Contact Info) Description 10/27/2021 Lab Requisition [facility] [address] [facility] [place] [id number] Katy Augustine MD [address] [facility] [address] [place] [address] Social History Tobacco Use Types Packs/Day Years Used Date Smoking Tobacco: Never Smokeless Tobacco: Never Comments No Sex and Gender Information Value Date Recorded Sex Assigned at Not on file Legal Sex Female 6:17 AM AIRLINE OPERATIONS AGENT Gender Identity Not on file Sexual Orientation Not on file documented as of this encounter Plan of Treatment Not on file documented as of this encounter Procedures Procedure Name Priority Date/Time Associated Diagnosis Comments DERMATOPATHOLOGY Routine 10/26/2021 12:0 0 AM AIRLINE OPERATIONS AGENT documented in this encounter Results * DERMATOPATHOLOGY (10/26/2021 12:00 AM AIRLINE OPERATIONS AGENT) Case Report Dermatopathology Report Case: [id number] Authorizing Provider: Katy Augustine MD Collected: 10/26/2021 12:00 AM Ordering Location: [facility] Received: 10/27/2021 08:02 AM Pathologist: Starla Ace MD Specimen: Skin, left lower leg 1:15 PM [facility]ER[facility]OR[facility] Final Diagnosis Specimen A. SKIN, left lower leg: DERMATOFIBROMA (D23.9) 1:15 PM AIRLINE OPERATIONS AGENT DERMATOPATHOLOGY LABORATORY at 1315 AIRLINE OPERATIONS AGENT Clinical History [place] papule DF R/O BCC. 1:15 PM [facility] Gross Description Specimen A: Received is one formalin filled container labeled with the patient's name and designated left lower leg. The specimen consists of a shave measuring [id number]. Jar 0. 1:15 PM [facility] Microscopic Description Specimen A. SKIN, left lower leg: There is epidermal hyperplasia. Within the dermis, there are fibrohistiocytic cells in haphazard array among coarse collagen bundles. 1:15 PM [facility] Disclaimer An external and internal positive and negative controls are appropriate for the histochemical, immunohistochemical and immunofluorescence stain(s) in this case (if any), except where stated explicitly. The performance characteristics of the stain(s) cited in this report were developed and its performance characteristic determined by the Dermatopathology Laboratory at [facility], directed by Dr. Jori Zhang. These tests need not be, and therefore are not, approved by the [place] Food and Drug Administration. The tests are used for clinical purposes. Billing Codes Specimen Charges Stain Charges 65468 1 1:15 PM [facility] Embedded Images 1:15 PM [facility] Pathology/Cytolog y TISSUE SPECIMEN FROM SKIN / Unknown 10/26/2021 10/27/2021 8:02 AM AIRLINE OPERATIONS AGENT Katy Augustine MD LAB - PATHOLOGY/CYTOLOGY ORD ERABLES Final Result DERMATOPATHOLOGY LABORATORY [facility] - Department of Dermatology [facility] [facility], 3rd Floor [address] [phone] documented in this encounter Visit Diagnoses Not on filedocumented in this encounter Care Teams Credit Union Examiner Relationship Specialty Start Date End Date Munira Lopez MD [address] [place] [address] PCP - General 07/01/21 04/01/22 Samanta Pace PA [address] [place] [address] PCP - General 04/02/22 documented as of this encounter
--- OUTSIDE RECORDS SUMMARY | 2025-09-21 10:08 | XMS_ITS | Clinical Summary ---
Author Organization [email or web address] Address [address] [facility] [place] [address] Care Team Providers Care Automation Engineering Technician Name Role Phone Samanta Pace Primary Care Pr ovider Source Comments [facility],non-owned Affiliates and Associated Physician Practices is amultiple site organization consisting of ambulatory clinics and hospital sitesin [place], [place], [place] and [place]. This disclosure is being madepursuant to the Care Everywhere program and may not contain all information available regarding this patient. Last updated 18.[email or web address] Allergies Active Allergy Reactions Criticality Noted Date [...] sublingual tablet Active trimethoprim-p olymyxin B (POLYTRIM) 23455-4.1 UNIT/ML-% ophthalmic solution polymyxin B sulfate 10,000 [...] on file Legal Sex Female 6:17 AM RETAIL AGENT Gender Identity Not on file Sexual [...] 10:19 AM CDT Height 157.5 cm (5' 2) 04/05/2022 10:19 AM CDT Body Mass Index [...] SCREENING 1979 LIPID TESTING 1979 MAMMOGRAM 1979 HIV SCREENING 1994 HEPATITIS C SCREENING 06/27/1997 DTAP/TDAP/TD VACCINES (1 - Tdap) 1998 HEPATITIS B VACCINE (1 of 3 - 19+ 3-dose series) 1998 DEPRESSION SCREENING 11/26/2024 COVID-19 VACCINE (3 - 2024- season) 2025 12/04/2020, 11/11/2020 INFLUENZA VACCINE (#1) 2025 , 09/18/2019, 09/13/2018, Additional history exists ZOSTER VACCINE [...] this topic Insurance ANTHEM ANTHEM Care Teams Automation Engineering Technician Relationship Specialty Start Date End Date Samanta Pace PA [address] [place] [address] PCP - General 04/02/22
--- OUTSIDE RECORDS SUMMARY | 2025-09-21 10:08 | XMS_ITS | Patient Health Record ---
Author Organization [employer] Address [address] [facility] [address] [place] [address] Care Team Providers Care Gate Tender Name Role Phone Samanta Alvarenga Primary Care Provider Unavailab alice Laz Muñiz Unavailable [phone] Allergies Allergen (clinical drug ingredient) Drug/Non Drug [...] Status Risk Notes Problem Generalized abdominal pain ([id number]) Generalized abdominal pain (R10.84) Active confirmed Maggy [...] SIBO, and others. Problem Nausea and vomiting (89862036) Nausea and vomiting (R11.2) Active confirmed Plan Of Treatment Pending Test Test Name Order Date Upper Endoscopy 02/07/2023 Insurance Providers Payer Name Payer Address Payer Phone Subscriber Number Group Number Insured Name Patient Relationship to Insured Coverage Start Date Coverage End Date Blue Access PPO E2 [address] [place] [address] [id number] Maggy Rodriguez Self - patient is the insured Medical (General) History Surgical History Surgery Date(Month/Year) Removal of Ovary
--- OUTSIDE RECORDS SUMMARY | 2025-09-21 10:08 | XMS_ITS | Clinical Summary ---
Author Organization [facility] Address [address] [place] [address] Phone Care Team Providers Care Roustabout Crew Pusher Name Role Phone Unavailable Primary Care Provider [...] Encounters Date Type Department Care Team Description 06/23/2025 External Device Data STL ABSTRACTION Provider, Abstract 06/23/2025 External Device Data STL ABSTRACTION Provider, Abstract 06/23/2025 External Device Data STL ABSTRACTION Provider, Abstract from Last 3 Months Immunizations Immunization Administration Dates Next Due (PFIZER)(12 YR UP) COVID-19 VACCINE - EMERGENCY USE AUTHORIZATION, MRNA, [id number](PF) 30 MCG/0.3 ML IM SUSP 12/04/2020,11/11/2020 INFLUENZA VACCINE QUADRIVALENT 3 YR UP PF IM 01/2016 INFLUENZA VACCINE QUADRIVALENT 6 MOS UP PF IM INFLUENZA VACCINE TRIVALENT SPLIT VIRUS, (6 MOS UP), 0.5ML (PF), IM 07/25/2024 Influenza Seasonal Unspecified Formulation IM ,08/29/2017 Social History Tobacco Use Types Packs/Day Years Used Date Smoking Tobacco: Never Assessed Comments Unknown Sex and Gender Information Value Date Recorded Sex Assigned at Not on file Legal Sex Female 10:58 AM CDT Gender Identity Not on file Sexual Orientation Not on file Last Filed Vital Signs Vital Sign Reading Time Taken Comments Blood Pressure 124/76 10/25/2017 9:[address] BOSS Pulse - - Temperature - - Respiratory Rate - - Oxygen Saturation - - Inhaled Oxygen Concentration - - Weight 54.4 kg (120 lb) 10/25/2017 9:[address] BOSS Height 157.5 cm (5' 2) 10/25/2017 9:[address] BOSS Body Mass Index 21.95 10/25/2017 9:[address] BOSS Plan of Treatment Health Maintenance Due Date Last Done Comments DTAP/TDAP/TD VACCINES (1 - Tdap) 1998 HEPATITIS B VACCINES (1 of 3 - 19+ 3-dose series) 1998 HPV/Cotest (21-29) 2000 CERVICAL CANCER SCREENING 2009 HPV/Cotest (30-65) 2009 PAP SMEAR 2009 BREAST CANCER SCREENING 2019 COLORECTAL SCREENING 2024 Colorectal Cancer Screening 2024 FIT-DNA Q 3 years 2024 FIT/FOBT Q 1 year 2024 Flex Sig/CT Colonography Q 5 years 2024 COVID-19 Vaccine ( season) 2025 12/04/2020, 11/11/2020 INFLUENZA VACCINE Completed 08/03/2025, , 09/07/2023, Additional history exists HPV VACCINES Aged Out No longer eligi ble based on patient's age to complete this topic Insurance [employer] CHOICE RX [employer] RX Member Subscriber Plan / Payer (Ef fective 2024-Present) Name:Maggy Rodriguez Relation to Subscriber:Self Name:Maggy Rodriguez Subscriber ID:Not on file Payer ID:Not on file Group ID:[id number] Type:RX Commercial Address: [address]
--- OUTSIDE RECORDS SUMMARY | 2025-09-21 10:09 | XMS_ITS | Clinical Summary ---
Author Organization [facility] Address [facility] [place] [address] Care Team Providers Care Internet Media Planner Name Role Phone Samanta Alvarenga Primary Care Provider [phone] Allergies Active Allergy Reactions Criticality Noted Date [...] (250 mg total) by mouth daily. Active Vitamin D3 (VITAMIN D) 50 mcg tablet Take 1 tablet (50 mcg total) by mouth daily. Active ketorolac (TORADOL) 10 MG tablet Take by mouth as needed. 05/26/2025 Active HYDROcodone-acet aminophen (NORCO) 5-325 MG tabletIndication s:Acute Pain < 7 Day Supply Take 1 tablet by mouth every 6 (six) hours as needed. Indications : Acute Pain < 7 Day Supply 20 tablet 06/08/2025 Active Active Problems Problem Noted Date Diagnosed Date Cervical spondylosis 01/07/2025 Facet arthropathy, cervical 08/29/2018 Family History Medical History Relation Comments Cardiovascular [...] Sign Reading Time Taken Comments Blood Pressure 101/84 06/08/2025 9:48 AM CDT Pulse 80 06/08/2025 9:48 AM CDT Temperature 36.3 C (97.3 F) 06/08/2025 8:58 AM CDT Respiratory Rate 18 06/08/2025 9:48 AM CDT Oxygen Saturation 100% 06/08/2025 9:48 AM CDT Inhaled Oxygen Concentration - - Weight 55.8 kg (123 lb) 06/08/2025 8:58 AM CDT Height 157.5 cm (5' 2) 06/08/2025 8:58 AM CDT Body Mass Index 22.5 06/08/2025 8:58 AM CDT Plan of Treatment Health Maintenance [...] HPV 2009 Mammogram Screening 2019 COVID-19 Vaccine ( season) 2025 12/04/2020, 11/11/2020 Influenza Adult (#1) 2025 07/25/2024, 09/07/2023, 09/15/2022, Additional history exists Hepatitis A Vaccines Aged Out No long er eligible based [...] 49 Years) Aged Out No longer eligible based on patient's age to complete this topic RSV Immunizations Under 20 Months Aged Out No longer eligible based on patient's age to complete this topic Insurance [facility] Care Teams Internet Media Planner Relationship Specialty Start Date End Date Samanta Alvarenga PA PCP - General 08/29/18
--- OUTSIDE RECORDS SUMMARY | 2025-09-21 10:09 | XMS_ITS | Clinical Summary ---
Author Organization [facility] [address] [facility] [address] Address [address] [place] [address] Care Team Providers Care Air Analysis Engineering Technician Name Role Phone Samanta Alvarenga Primary Care [...] 11/11/2024 Assessment & Plan (11/11/2024 10:43 AM MUSIC THERAPIST [employer]): Reticular veins of the posterior knee no [...] on file Legal Sex Female 9:55 AM MUSIC THERAPIST [employer] Gender Identity Not on file Sexual Orientation Not on file Obstetrics History Last Filed Vital Signs Vital Sign Reading Time Taken Comments Blood Pressure 123/82 11/10/2024 1:12 PM MUSIC THERAPIST [employer] Pulse 71 11/10/2024 1:12 PM MUSIC THERAPIST [employer] Temperature 36.8 C (98.2 F) 02/24/2024 3:32 PM CDT Respiratory Rate 20 02/24/2024 3:32 PM CDT Oxygen Saturation 100% 02/24/2024 3:32 PM CDT Inhaled Oxygen Concentration - - Weight 54.4 kg (120 lb) 11/10/2024 1:12 PM MUSIC THERAPIST [employer] Height 157.5 cm (5' 2) 11/10/2024 1:12 PM MUSIC THERAPIST [employer] Body Mass Index 21.95 11/10/2024 1:12 PM MUSIC THERAPIST [employer] Plan of Treatment Health Maintenance Due Date Last Done Comments Breast Cancer Screening-Mammogram 1979 Cervical Cancer Screening 1979 Colon Cancer Screening-Colonoscopy 1979 Depression Screening 1979 Hepatitis C Screening 1979 DTaP/Tdap/Td Vaccine (1 - Tdap) 1990 Regular Well Visit/Exam 18-64 1997 Covid-19 Vaccine ( season) 2025 12/04/2020, 11/11/2020 Influenza Vaccine (#1) 2025 4, 09/07/2023, 09/15/2022, Additional history exists Hepatitis B Screening Completed 04/10/2001 , 06/14/2000, 04/24/2000 HPV Vaccines Aged Out No longer eligi ble based on patient's age to complete this topic Pneumococcal vaccine <65 Aged Out No longer eligible based on patient's age to complete this topic Insurance [facility] CHOICE [facility] H[facility]/PPO Address: [place] [address] [facility] CHOICE [facility] H[facility]/PPO Address: [address] [address] [place] [address] Care Teams Air Analysis Engineering Technician Relationship Specialty Start Date End Date Samanta Alvarenga PA PCP - General Physician Adjunct Nursing Faculty 10/25/18
== END 2025-09-21 09:23 | disposition home or self-care (01) ==
LOC: ANHLAB 09:22
PROVIDERS: PCP Physician Assistant; Visit Provider Obstetrics & Gynecology
DX: Z01.818 Encounter for other preprocedural examination (principal); R10.20 Pelvic and perineal pain unspecified side
CPT/HCPCS: 36415; 86850; 86900; 86901

== ENCOUNTER 2025-09-23 00:42 | Day surgery (SDC) | payer OTHER, SELFPAY ==
--- OUTSIDE RECORDS SUMMARY | 2009-06-09 04:45 | XMS_ITS | Continuity of Care Document ---
Author Organization [facility] Address [address] [facility] [address] [place] [address] Phone Care Team Providers Care Snubber Name Role Phone MarilusameerRajaniMalachi Unavailable Unavailable Procedures Procedure Date Eye Exam, New Patient Advance Directives Directive Yes / No Effective Date File Name No Information Encounters Encounter Description Practice Location Reason(s) For Visit Diagnoses Date Provider Providers Copied on Encounter [facility], [address], [place], [place], [id number], [place] tel:[phone] [facility] No Information [address]. [address] [facility] [address], [place], [address], [place]. tel:[phone] Family History Family Member Type Diagnosis Age At Onset No Information Payers Payer name Insurance type Covered republican ID Authoriza tiamber(s) BCBS [place] Out Of State [id number] Social History Type Description Quantity Date Captured Comments Sex Female Smoking Status No Information Chief Complaint And Reason For Visit No Information Reason For Referral Reason For Referral No Information History Of Present Illness Encounter Date Complaint History Of Prese nt Illness No Information Functional Status Date Functional Assessmen t No Information Instructions Date Instruction Additional Infor mation No Information Assessments Type Assessment Date No Information Patient Care Teams Name Effective Dates (start - stop) Status Members No Information
[2025-09-09 11:25] VITALS: BMI 22.1
--- NOTE | 2025-09-10 14:38 | PC.NURSE ---
[facility] has started construction of its new state of the art ER which will open Spring 2026. With this, we anticipate parking may be a challenge for some our surgical patients and families. Parking spaces are limited but are available for all Surgical, obstetrics, and ER patients sharing this lot. If you arrive and find you are having a hard time finding a parking space, please note that we understand the challenges, please drive around the hospital and park near Hospital Entrance 1. When you enter this entrance, you can ask a volunteer to direct or take you back to the surgical waiting area to check in. We appreciate everyone?s understanding of these expected challenges while we build for your future. Report to the Outpatient Waiting Room, entrance under the green pavilion located off [address], at time 1230 on date 09/23/25. Planned Procedure Time: 1430.? Time changes happen often and if your time is changed the preop area will call you the afternoon before. - You and your visitor will be asked to self-screen and do not enter if you have any COVID symptoms. Please call surgeon if you need to reschedule. - A mask is optional within the hospital at this time. Patients may have clear liquids (water, carbonated beverages, clear teas, apple juice) until 3 hours prior to surgery with a maximum of 20 ounces. - No food from midnight until time of surgery and no smoking, or chewing tobacco (or any form of nicotine). No chewing gum, candy or mints. Take only the following medications with a SIP of water on the morning of surgery: n/a DO NOT STOP ANY OF YOUR OTHER PRESCRIPTION MEDICATIONS PRIOR TO SURGERY EXCEPT THE FOLLOWING Hold all vitamins and supplements for 3 days per anesthesiologist - LAST DOSE: 09/19/25 Medications to discontinue per physician: Celebrex Date to take last dose: per Dr. Brar Please no make-up, nail portuguese, hairspray, perfume, deodorant, or body powder the day of surgery.? No jewelry (including any body piercings) or valuables the day of surgery, leave them at home.? Please take a shower or bath the night before, or the morning of, surgery with an antibacterial soap.? Wear comfortable, loose fitting clothing.? Children are encouraged to wear pajamas. - Jewelry must be removed prior to entering the operating room.? Rings and piercings that are not removed may be cut off. - The hospital will not accept responsibility for valuables.? - Please leave all valuables, including medications, at home the day of surgery. If you are going home after surgery, a licensed wheat combine driver must drive you home.? - NO public transportation without another adult if you receive anesthesia. - We recommend that an adult stay with you for 24 hours following discharge. - We also recommend that you do not drive, make important decision, drink alcoholic beverages, or take any drugs that were not prescribed by your health care provider for at least 24 hours after your discharge time. Follow any additional instructions given to you from your surgeon. Telephone instructions given to pt Esha Winter and asked if any additional questions and then verbalized understanding. Patient advised to call surgeon office or pre surgery nurse liaison [phone] if any additional questions.
[2025-09-23] VITALS (8 sets, daily range): BP systolic 103–110; BP diastolic 52–77; PULSE 64–82; RESP 12–20; TEMP 36.4–37; O2SAT 100
--- OUTSIDE RECORDS SUMMARY | 2025-09-23 00:45 | XMS_ITS | Clinical Summary ---
Author Organization [facility] Address [facility]ly [facility] [place] [address] Care Team Providers Care Tool Rental Technician Name Role Phone Samanta Alvarenga Primary Care Provider [phone] Allergies Active Allergy Reactions Criticality Noted Date [...] patient's age to complete this topic Insurance [facility] Care Teams Tool Rental Technician Relationship Specialty Start Date End Date Samanta Alvarenga PA PCP - General 08/29/18
--- OUTSIDE RECORDS SUMMARY | 2025-09-23 00:45 | XMS_ITS | Clinical Summary ---
Author Organization [facility] Address [address] [place] [address] Phone Care Team Providers Care Occupational Health And Safety Adviser Name Role Phone Unavailable Primary Care Provider [...] COVID-19 VACCINE - EMERGENCY USE AUTHORIZATION, MRNA, [id number](PF) 30 MCG/0.3 ML IM SUSP 12/04/2020,11/11/2020 INFLUENZA [...] Comments Blood Pressure 124/76 10/25/2017 9:30 AM DIRECTOR OUTPATIENT SERVICES Pulse - - Temperature - - Respiratory Rate - - Oxygen Saturation - - Inhaled Oxygen Concentration - - Weight 54.4 kg (120 lb) 10/25/2017 9:30 AM DIRECTOR OUTPATIENT SERVICES Height 157.5 cm (5' 2) 10/25/2017 9:30 AM DIRECTOR OUTPATIENT SERVICES Body Mass Index 21.95 10/25/2017 9:30 AM DIRECTOR OUTPATIENT SERVICES Plan of Treatment Health Maintenance Due Date [...] patient's age to complete this topic Insurance [employer] [place] ACCESS CHOICE RX [employer] RX Member Subscriber Plan / Payer (Ef fective 2024-Present) Name:Maggy Rodriguez Relation to Subscriber:Self Name:Maggy Rodriguez Subscriber ID:Not on file Payer ID:Not on file Group ID:[id number] Type:RX Commercial Address: [address]
--- OUTSIDE RECORDS SUMMARY | 2025-09-23 00:45 | XMS_ITS | Clinical Summary ---
Author Organization [facility] [address] [facility] [address] Address [address] [place] [address] Care Team Providers Care Lead Business Analyst Name Role Phone Samanta Alvarenga Primary Care [...] 11/11/2024 Assessment & Plan (11/11/2024 10:43 AM DIRECTOR OF INFORMATICS): Reticular veins of the posterior knee no [...] on file Legal Sex Female 9:55 AM DIRECTOR OF INFORMATICS Gender Identity Not on file Sexual Orientation Not on file Obstetrics History Last Filed Vital Signs Vital Sign Reading Time Taken Comments Blood Pressure 123/82 11/10/2024 1:12 PM DIRECTOR OF INFORMATICS Pulse 71 11/10/2024 1:12 PM DIRECTOR OF INFORMATICS Temperature 36.8 C (98.2 F) 02/24/2024 3:32 PM CDT Respiratory Rate 20 02/24/2024 3:32 PM CDT Oxygen Saturation 100% 02/24/2024 3:32 PM CDT Inhaled Oxygen Concentration - - Weight 54.4 kg (120 lb) 11/10/2024 1:12 PM DIRECTOR OF INFORMATICS Height 157.5 cm (5' 2) 11/10/2024 1:12 PM DIRECTOR OF INFORMATICS Body Mass Index 21.95 11/10/2024 1:12 PM DIRECTOR OF INFORMATICS Plan of Treatment Health Maintenance Due Date [...] patient's age to complete this topic Insurance [facility] CHOICE PLUS [facility] CHO[facility] PL[facility] Care Teams Lead Business Analyst Relationship Specialty Start Date End Date Samanta Alvarenga PA PCP - General Physician Outside Sales Representative Insurance 10/25/18
--- OUTSIDE RECORDS SUMMARY | 2025-09-23 00:45 | XMS_ITS | Encounter Summary ---
Author Organization [facility] Address [address] [place] [address] Care Team Providers Care Zinc Skimmer Name Role Phone Munira Lopez MD Primary Care Provider [phone] Samanta Pace Primary Care Pr ovider Encounter Details Date Type Department Care Team (Late st Contact Info) Description 10/27/2021 Lab Requisition [facility] [address] [facility] [place] [id number] Katy Augustine MD [address] [facility] [address] [place] [address] Social History Tobacco Use Types Packs/Day Years Used Date Smoking Tobacco: Never Smokeless Tobacco: Never Comments No Sex and Gender Information Value Date Recorded Sex Assigned at Not on file Legal Sex Female 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 Gender Identity Not on file Sexual Orientation Not on file documented as of this encounter Plan of Treatment Not on file documented as of this encounter Procedures Procedure Name Priority Date/Time Associated Diagnosis Comments DERMATOPATHOLOGY Routine 10/26/2021 12:0 0 AM AIRCRAFT FUELER documented in this encounter Results * DERMATOPATHOLOGY (10/26/2021 12:00 AM AIRCRAFT FUELER) Case Report Dermatopathology Report Case: [id number] Authorizing Provider: Katy Augustnie MD Collected: 10/26/2021 12:00 AM Ordering Location: [facility] Received: 10/27/2021 08:02 AM Pathologist: Starla Ace MD Specimen: Skin, left lower leg 1:15 PM [facility] Final Diagnosis Specimen A. SKIN, left lower leg: DERMATOFIBROMA (D23.9) 1:15 PM AIRCRAFT FUELER DERMATOPATHOLOGY LABORATORY at [address] [employer] Clinical History [place] papule DF R/O BCC. 1:15 PM [facility] Gross Description Specimen A: Received is one formalin filled container labeled with the patient's name and designated left lower leg. The specimen consists of a shave measuring [id number]. Jar 0. 1:15 PM [facility]ERMAT[facility]ATHOLOGY [facility] Microscopic Description Specimen A. SKIN, left lower leg: There is epidermal hyperplasia. Within the dermis, there are fibrohistiocytic cells in haphazard array among coarse collagen bundles. 1:15 PM [facility]ERMAT[facility]ATH[facility]Y [facility] Disclaimer An external and internal positive and negative controls are appropriate for the histochemical, immunohistochemical and immunofluorescence stain(s) in this case (if any), except where stated explicitly. The performance characteristics of the stain(s) cited in this report were developed and its performance characteristic determined by the Dermatopathology Laboratory at [facility], directed by Dr. Jori Zhang. These tests need not be, and therefore are not, approved by the [place] Food and Drug Administration. The tests are used for clinical purposes. Billing Codes Specimen Charges Stain Charges 47185 1 1:15 PM [facility] DERMATOPATHOLOGY [facility]ORY Embedded Images 1:15 PM [facility] Pathology/Cytolog y TISSUE SPECIMEN FROM SKIN / Unknown 10/26/2021 10/27/2021 8:02 AM AIRCRAFT FUELER Katy Augustine MD LAB - PATHOLOGY/CYTOLOGY ORD ERABLES Final Result DERMATOPATHOLOGY LABORATORY [facility] - Department of Dermatology [facility] Medicine [facility] [facility], 3rd Floor [address] [phone] documented in this encounter Visit Diagnoses Not on filedocumented in this encounter Care Teams Zinc Skimmer Relationship Specialty Start Date End Date Munira Lopez MD [address] [place] [address] PCP - General 07/01/21 04/01/22 Samanta Pace PA [address] [place] [address] PCP - General 04/02/22 documented as of this encounter
--- OUTSIDE RECORDS SUMMARY | 2025-09-23 00:45 | XMS_ITS | Patient Health Record ---
Author Organization [email or web address] Address [address] [facility] [address] [place] [address] Care Team Providers Care Special Assemblies Supervisor Name Role Phone Samanta Alvarenga Primary Care Provider Unavailab alice Laz Muñiz Unavailable [phone] Allergies Allergen (clinical drug ingredient) Drug/Non Drug [...] Status Risk Notes Problem Generalized abdominal pain (257524432) Generalized abdominal pain (R10.84) Active confirmed Maggy [...] SIBO, and others. Problem Nausea and vomiting (80489200) Nausea and vomiting (R11.2) Active confirmed Plan Of Treatment Pending Test Test Name Order Date Upper Endoscopy 02/07/2023 Insurance Providers Payer Name Payer Address Payer Phone Subscriber Number Group Number Insured Name Patient Relationship to Insured Coverage Start Date Coverage End Date Blue Access PPO E2 [address] [place] [address] [id number] Maggy Rodriguez Self - patient is the insured Medical (General) History Surgical History Surgery Date(Month/Year) Removal of Ovary
--- OUTSIDE RECORDS SUMMARY | 2025-09-23 00:45 | XMS_ITS | Clinical Summary ---
Author Organization [facility] Address [address] [place] [address] Care Team Providers Care Silverer Name Role Phone Samanta Pace Primary Care Pr ovider Source Comments [facility],non-owned Affiliates and Associated Physician Practices is amultiple site organization consisting of ambulatory clinics and hospital sitesin [place], [place], [place] and [place]. This disclosure is being madepursuant to the Care Everywhere program and may not contain all information available regarding this patient. 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
--- NOTE | 2025-09-23 10:41 | PM.IMHP ---
H&P: HPI History of Present Illness Date/Time: 09/23/25 10:41 Chief Complaint: Adnexal pain Narrative: 45 y/o who has continued problems with recurrent right adnexal pain. Ultrasound exam shows an unremarkable right ovary measuring 2.23 x 2.09 x 1.04 cm. She does not have regular menses, but has had some sporadic bleeding episodes. She would like to have right salpingo-oophorectomy. She underwent laparoscopic LSO for pain in 2012 with benign pathology. She had been told by a previous physician that she had endometriosis noted on laparoscopy. I performed the LSO in 2013, and no endometriosis was noted at that time. Review of Systems Review of Systems: All systems reviewed & are unremarkable except as noted in HPI and below PMFSH Past Medical History Medical History History of endometriosis Endometriosis Pes anserinus bursitis of left knee Left knee injury Left knee pain Surgical History Surgical History History of left salpingo-oophorectomy H/O left knee surgery (~02/2025) History of hand surgery trigger finger release 1999 Family History Family History Unknown Heart disease Skin cancer Arthritis Social History Social History Smoking status: Never smoker Alcohol intake: current Drinks per week: 1 Alcohol use details: SOCIALLY ONCE A MONTH Substance use: never Substance use type: does not use Do You Feel Safe in your Home?: Yes Lack of Transportation: No Lack of Food: Never True Current Housing: Decline to Answer Concerned About Future Housing: Decline to Answer Difficulty Paying Gas/Electric Bills: Decline to Answer Difficulty Paying for Meds: Decline to Answer Currently Unemployed: Decline to Answer Education: Decline to Answer Difficulty w/ Childcare or Family Care: Decline to Answer Living arrangements: with family Occupation/Education: occupation Additional occupation/education comments: [employer] Gender identity (if verbalized by the patient): Female Spiritual care concerns: No Meds Home Medications and Allergies Home Medications ?Medication ?Instructions ?Recorded ?Confirmed ?Type cholecalciferol (vitamin D3) 50 50 mcg PO DAILY 06/17/24 09/09/25 History mcg (2,000 unit) capsule magnesium aspart,citrate,oxide 400 mg PO DAILY 06/17/24 09/09/25 History omega 3,6,9-borage seed 1 cap PO DAILY 07/07/25 09/09/25 History oil-flaxseed oil-fish oil 1,233 mg capsule celecoxib 200 mg capsule (Celebrex) 200 mg PO DAILY 09/07/25 09/09/25 History Allergies Allergy/AdvReac Type Severity Reaction Status Date / Time Cephalosporins Allergy Unknown Rash Verified 09/09/25 11:24 latex Allergy Unknown Blister Verified 09/09/25 11:24 Penicillins Allergy Unknown Hives Verified 09/09/25 11:24 vancomycin Allergy Unknown Hives / Verified 09/09/25 11:24 Red Face Exam Const: Orientation/consciousness: patient oriented x3 Other: Well-developed, well-nourished female in no acute distress. Neck: Thyroid: thyroid normal Lymphatic: no lymphadenopathy noted (in neck, axilla or inguinal nodes) Resp: Effort & Inspection: normal respiratory effort Auscultation: clear to auscultation bilaterally Cardio: Rate: regular rate Rhythm: regular rhythm Heart sounds: S1 normal heart sound present and S2 normal heart sound present GI: Other: ABD: Soft, nontender, nondistended. No guarding or rebound tenderness. No hepatosplenomegaly. : General: Yes no CVA tenderness Other: External genitalia: normal female hair distribution, without lesion. Urethral meatus: no lesion, non prolapsed. Bladder: no mass, nontender Vagina: well-estrogenized, without lesion or discharge. No cystocele or rectocele. Cervix: no lesion or discharge. Uterus: small, anteverted, freely mobile, nontender Adnexa: no mass or tenderness. Anus/perineum: no lesions, nontender Back/Spine/Pelvis: Back: no CVA tenderness Skin: General skin exam: normal color and no rashes or lesions noted Neuro: General: patient oriented x3 Extrem: Other: Extremities: nontender with no edema Psych: Mental Status: mental status grossly normal Affect: normal affect Assessment and Plan Assessment and plan (1) Pelvic pain: Code(s): R10.2 - Pelvic and perineal pain Status: Acute Assessment and Plan: A: Persistent right adnexal pain. P: We reviewed medical as well surgical approaches her problem, and she prefers the latter. Specifically, I have offered her a laparoscopic right salpingo-oophorectomy. She understands risks of surgery to include risks of anesthesia, risks of pain, infection, bleeding, blood products, thromboembolic phenomena and damage to adjacent structures such as bowel, bladder, ureters, blood vessels and nerves. She understands she could experience menopausal symptoms requiring treatment. She understands all these risks and elects to proceed with surgery.
--- NOTE | 2025-09-23 11:37 | P.PNAN_ITS ---
Anes - Initial Pre Proc Eval Procedure: Operation Date: 09/23/25 13:00 Proposed Procedures p Laparoscopic Right Salpingo Oophorectomy - To Brar MD s Hysteroscopy Dilation and Curettage with Removal of Any Endometrial Lesions if Necessary - To Brar MD Date/Time: 09/23/25 11:37 Surgeon: To Brar MD Pre Op Diagnosis: pelvic pain, Irg Bleeding Patient Data Age: 45 Gender: F Height: 1.57 m Weight: 55.4 kg Last Vital Signs Temp 37.0 C 09/23/25 11:10 Pulse 77 09/23/25 11:10 Resp 16 09/23/25 11:10 BP 108/72 09/23/25 11:10 Pulse Ox 100 09/23/25 11:10 O2 Del Method Room Air 09/23/25 11:10 Allergies Allergy/AdvReac Type Severity Reaction Status Date / Time Cephalosporins Allergy Unknown Rash Verified 09/23/25 11:27 latex Allergy Unknown Blister Verified 09/23/25 11:27 Penicillins Allergy Unknown Hives Verified 09/23/25 11:27 vancomycin Allergy Unknown Hives / Verified 09/23/25 11:27 Red Face Home Medications ?Medication ?Instructions ?Recorded ?Confirmed ?Type cholecalciferol (vitamin D3) 50 50 mcg PO DAILY 09/09/25 History mcg (2,000 unit) capsule magnesium aspart,citrate,oxide 400 mg PO DAILY 4 09/09/25 History omega 3,6,9-borage seed 1 cap PO DAILY 07/07/2508/26 History oil-flaxseed oil-fish oil 1,233 mg capsule celecoxib 200 mg capsule (Celebrex) 200 mg PO DAILY 09/09/25 History Patient hx anesthesia problems: none Family hx anesthesia problems: none Results Review: All pre-operative results and documents have been reviewed as part of the pre- operative evaluation. [facility] Past Medical History Medical History History of endometriosis Endometriosis Pes anserinus bursitis of left knee Left knee injury Left knee pain Surgical History Surgical History History of left salpingo-oophorectomy H/O left knee surgery (~02/2025) History of hand surgery trigger finger release 1999 Family History Family History Unknown Heart disease Skin cancer Arthritis Social History Social History Smoking status: Never smoker Alcohol intake: current Drinks per week: 1 Alcohol use details: SOCIALLY ONCE A MONTH Substance use: never Substance use type: does not use Do You Feel Safe in your Home?: Yes Lack of Transportation: No Lack of Food: Never True Current Housing: Decline to Answer Concerned About Future Housing: Decline to Answer Difficulty Paying Gas/Electric Bills: Decline to Answer Difficulty Paying for Meds: Decline to Answer Currently Unemployed: Decline to Answer Education: Decline to Answer Difficulty w/ Childcare or Family Care: Decline to Answer Living arrangements: with family Occupation/Education: occupation Additional occupation/education comments: [employer] Gender identity (if verbalized by the patient): Female Spiritual care concerns: No Anes - Eval Final PreProcedure Day of Procedure 09/23/25 11:37 Patient weight: normal Heart: regular rate and rhythm Lungs: clear to auscultation Airway: Mallampati scale class II Neurological: alert and oriented Last oral intake: >/= 8 hours ASA classification: II Emergent: no Anesthetic plan: proceed Anesthesia type and monitoring: general ETT and standard monitoring Results Review: All pre-operative results and documents have been reviewed as part of the pre- operative evaluation. Informed Consent: The patient's anesthetic plan and its attendant risks and benefits were discussed with the patient/family/POA. Questions were solicited and answers provided to the satisfaction of the patient/family/POA.
[2025-09-23 11:39] LABS: BEDSIDEPREGUCG Negative (Negative)
--- NOTE | 2025-09-23 11:58 | WPDHPUPDATE1 ---
History and Physical Update Update Date/Time: 09/23/25 11:58 History and Physical has been reviewed, including an updated exam of the patient. There are NO changes in the patient's condition. Risks, benefits, and alternatives have been discussed and questions answered. Patient agrees to proceed with procedure.
[2025-09-23] MEDS: ACETAMINOPHEN 500 MG TABLET 1000 MG PO (11:59)
[2025-09-23] MEDS: SCOPOLAMINE 1 MG PATCH 1 PATCH TRANSDERM (11:59)
[2025-09-23 12:03] LABS: BEDSIDEPREGUCG Negative (Negative)
[2025-09-23] MEDS: KETOROLAC 15 MG/ML VIAL (*BKC) IV PUSH (12:17)
[2025-09-23] MEDS: LACTATED RINGERS 1,000 ML 30 ML IV CONT ×2 (12:18→14:06)
--- NOTE | 2025-09-23 13:47 | S_PTH ---
PATIENT: Maggy Rodriguez LOC: [facility] U#:[id number] AGE/SX: 45/F ROOM: RE09/23/[address]: To Brar MD : 1980 BED: DIS: 09/23/2025 SPEC #: [id number] RECD: 09/24/25 07:14 STATUS: MILLY REСергей #: [id number] LUCINA: 09/23/25 13:[address]: To Brar DEPT: [facility] Surgical RECD BY: Brenda Hoffman ENTERED: 09/24/25 07:16 SP TYPE: Surgical OTHR DR: Samanta Alvarenga, PA-C Tissues: A - Ovary B - Endometrial Curettings Procedures: Hematoxylin and Eosin Stain Gross and Microscopic Level 4
--- NOTE | 2025-09-23 14:12 | W.PM.PROC2 ---
Procedure Note - Detailed Date of Procedure 09/23/25 Pre-op Diagnosis Persistent pelvic pain Irregular menses Post-op Diagnosis Same Procedure Performed Laparoscopic right salpingo-oophorectomy Hysteroscopy Dilation and sharp curettage Surgeon To Brar MD Anesthesia General and Local (1% lidocaine) Findings Left tube and ovary surgically absent. Uterus, right tube and ovary, bilateral round and uterosacral ligaments, anterior and posterior cul de sac all unremarkable. Vermiform appendix unremarkable. Liver unremarkable. Description of Procedure The patient was taken to the operating room where general endotracheal anesthesia was administered. She was prepared and draped in the usual sterile fashion in the dorsal lithotomy position. The bladder was drained with a red rubber catheter. A sterile speculum was inserted into the vagina and the anterior lip of the cervix was grasped with a single-toothed tenaculum. The acorn uterine manipulator was placed. The speculum was withdrawn. Gloves were changed and attention was turned to the abdomen. An infraumbilical skin incision was made with a scalpel. The abdomen was tented and a 5 millimeter bladeless trocar trocar was advanced under direct laparoscopic visualization. Pneumoperitoneum was administered using carbon dioxide gas. A survey of the pelvis and abdomen yielded the findings noted above. A second skin incision was made in the midline above the symphysis pubis, and a 5 mm bladeless trocar was advanced under direct laparoscopic visualization. Finally, a 10 mm port was similarly placed in the left lower quadrant. The right ureter was identified. The infundibulopelvic ligament on the right was divided using the Ligasure, followed by the right uteroovarian ligament. The right adnexa was placed in a bag and removed, and passed off to be sent to pathology. Pedicles were inspected and hemostasis was excellent. The juana cone was advanced in the LLQ incision, and the fascia was reapproximated with a single interrupted suture of 0 Vicryl. The trocars were withdrawn and the gas was allowed to escape. The skin incisions were reapproximated using 4-0 Vicryl in interrupted subcuticular fashion. Dermaflex was applied externally. Attention was redirected to the vagina, where the acorn uterine manipulator was withdrawn. Ten mL of 1% lidocaine was administered in a paracervical block. The cervix was then gently dilated using Hegar dilators until a 6 mm dilator could be passed. Hysteroscopy was performed using sterile saline as a distention medium. Findings are as noted above. Sharp curettage was then performed, and endometrial curettings were collected on a Telfa pad and passed off to be sent to pathology. Hemostasis was excellent. Sponge, lap, needle and instrument counts were correct. The patient was awakened and taken to the recovery room in stable condition. I was present and scrubbed through the entire procedure. Implants None Estimated Blood Loss 5 Drains No Packing No Pathology Yes (Right tube and ovary, endometrial curettings) Complications None Condition Stable Disposition PACU [facility] Billing Surgery - Charge Forward: Surgery Billing
[2025-09-23] MEDS: ONDANSETRON INJ 4 MG/2 ML VIAL IV PUSH (14:23)
[2025-09-23] MEDS: fentaNYL CITRATE INJ (*CRX) 100 MCG/2 ML VIAL 25 MCG IV PUSH ×4 (14:36→14:55)
== END 2025-09-23 16:13 | disposition home or self-care (01) ==
PROVIDERS: PCP Physician Assistant; Visit Provider Obstetrics & Gynecology
PROC: (CPT 49320; principal; 2025-09-23 13:00)
PROC: 0U5B8ZZ Destruction of Endometrium, Via Natural or Artificial Opening Endoscopic (ICD-10-PCS; CPT 58563; 2025-09-23 13:00)
DX: N83.201 Unspecified ovarian cyst, right side (principal); R10.20 Pelvic and perineal pain unspecified side; N92.6 Irregular menstruation, unspecified
CPT/HCPCS: 58661; 58558; 36415; 86850; 86900; 86901; 88305; A9270; J1100; J1200; J1885; J2003; J2250; J2405; J2704; J3010; J7120